=== PATIENT | male | born 1960 | race Caucasian/White ===

== ENCOUNTER 2016-08-13 17:31 | Inpatient (IN) | payer OTHER ==
[~2016-08-13] VITALS: Ht 167.6 cm; Wt 64.9 kg
[~2016-08-13 17:31] MED LIST: ALLA266C2 TP; AMLO5TAB2 PO; CHOL100044 PO; EMTR1TAB18 PO; GLIP5TAB PO; Hydrochlorothiazide PO; LEVO750T21 PO; LISI20TA61 PO; LISI40TA4 PO; METF500T4 PO; MULT-24 PO; PANT40TA2 PO; SULF1TAB47 PO; Venlafaxine Hcl PO
[2016-08-13] MEDS ORDERED: IV NS 0.9% 1,000 ML ONE ×2 (17:57→18:02)
[2016-08-13] MEDS ORDERED: ASPIRIN 325 MG TABLET ONE ×2 (17:57→18:02)
[2016-08-13] MEDS ORDERED: ONDANSETRON HCL/PF 4 MG/2 ML VIAL ONE ×3 (17:57→21:26)
[2016-08-13] MEDS ORDERED: IV SET PRIMARY PUMP SET 1 EA INFUS.SET MC ONE (17:58)
[2016-08-13] MEDS ORDERED: ASPIRIN 325 MG TABLET PO ONE (18:00)
[2016-08-13] MEDS ORDERED: IV NS 0.9% 1,000 ML BAG IV ONE (18:00)
[2016-08-13] MEDS ORDERED: ONDANSETRON HCL/PF 4 MG/2 ML VIAL IVP ONE (18:00)
[2016-08-13] MEDS ORDERED: IV SET PRIMARY 1 EA INFUS.SET MC ONE (18:02)
[2016-08-13 18:16] LABS: BASOPHILS % (AUTO) 0.4 % (0.0-2.0); DIFF TOTAL % 100 %; EOSINOPHILS # (AUTO) 0.1 /CMM (0.0-0.7); EOSINOPHILS % (AUTO) 2.2 % (0.0-6.0); HEMATOCRIT 42 % (39-51); HEMOGLOBIN 13.7 g/dL (13.5-17.5); LYMPHOCYTES # (AUTO) 0.6 /CMM (0.8-4.8); LYMPHOCYTES % (AUTO) 13.6 % (20.0-44.0); MEAN CORPUSCULAR HEMOGLOBIN 30 PG (26.0-33.0); MEAN CORPUSCULAR HGB CONC 33 g/dl (31.0-36.0); MEAN CORPUSCULAR VOLUME 92 fL (80-96); MONOCYTES # (AUTO) 0.4 /CMM (0.1-1.30); MONOCYTES % (AUTO) 8.9 % (2.0-12.0); NEUTROPHILS # (AUTO) 3.5 /CMM (1.8-8.9); NEUTROPHILS % (AUTO) 74.9 % (43.0-81.0); PLATELET COUNT (AUTO) 98 /CMM (150-450); RED BLOOD CELL COUNT(AUTO) 4.53 MIL/uL (4.5-6.0); WHITE BLOOD COUNT (AUTO) 4.6 K/uL (4.3-11.0)
[2016-08-13 18:30] LABS: ANION GAP 12 (5-14); CARBON DIOXIDE 28 mmol/L (21-32); CHLORIDE 105 mmol/L (98-107); CREATININE 1.1 mg/dL (0.6-1.3); GFR 70 mL/min (>60); GLUCOSE 265 mg/dL (74-106); POTASSIUM 3.7 mmol/L (3.5-5.1); SODIUM SERUM 141 mmol/L (136-145); UREA NITROGEN, BLOOD 19 mg/dL (7-18)
[2016-08-13 18:36] LABS: ALANINE AMINOTRANSFERASE 162 U/L (12-78); ALBUMIN 4.3 g/dL (3.4-5.0); ASPARTATE AMINOTRANSFERASE 91 U/L (15-37); BILIRUBIN,DIRECT 0.2 mg/dL (0.0-0.2); BILIRUBIN,TOTAL 0.6 mg/dL (0.2-1.0); INDIRECT BILIRUBIN 0.4 mg/dL (0.0-1.1); TOTAL PROTEIN, SERUM 7.7 g/dL (6.4-8.2)
[2016-08-13 18:38] LABS: TROPONIN I < 0.017 ng/mL (0.00-0.056)
[2016-08-13 18:46] LABS: INR 1.08 (0.87-1.13); PROTHROMBIN TIME 11.3 SECS (9.5-12.7)
[2016-08-13] MEDS ORDERED: FUROSEMIDE 40 MG/4 ML VIAL ONE (19:26)
[2016-08-13] MEDS ORDERED: FUROSEMIDE 40 MG/4 ML VIAL IV ONE (19:30)
[2016-08-13] MEDS ORDERED: DEXTROSE 50%-WATER 50 ML DISP.SYRIN IV PRN (21:00)
[2016-08-13] MEDS ORDERED: HYDROCODONE/APAP 5/325MG 1 EACH TABLET PO PRN (21:00)
[2016-08-13] MEDS ORDERED: MAGNESIUM HYDROXIDE 30 ML UDC PO PRN (21:00)
[2016-08-13] MEDS ORDERED: ACETAMINOPHEN 325 MG TABLET PO PRN (21:00)
[2016-08-13] MEDS ORDERED: MAG HYDROX/AL HYDROX/SIMETH 30 ML UDC PO PRN (21:00)
[2016-08-13] MEDS ORDERED: ZOLPIDEM TARTRATE 5 MG TABLET PO PRN (21:00)
[2016-08-13] MEDS ORDERED: ONDANSETRON HCL/PF 4 MG/2 ML VIAL IVP PRN (21:00)
[2016-08-13 21:10] VITALS: BP 143/90
[2016-08-13] MEDS: BLOOD SUGAR DIAGNOSTIC 1 EACH STRIP VI SCH (21:21)
[2016-08-13] MEDS: *INSULIN REGULAR(HUMULIN R)HUM 100 UNIT/ML VIAL SQ PRN (21:22)
[2016-08-13] MEDS ORDERED: PANTOPRAZOLE 40 MG VIAL ONE (21:26)
[2016-08-13] MEDS: PANTOPRAZOLE 40 MG VIAL IV SCH (21:32)
[2016-08-13 22:29] LABS: BAND % (MANUAL) 2 % (0.0-5.0); EOSINOPHILS % (MANUAL) 2 % (0-4); LYMPHOCYTES % (MANUAL) 14 % (16-48)
[2016-08-13 22:31] LABS: PLATELET ESTIMATE DECREASED
[2016-08-14] VITALS: BP 144/84
[2016-08-14 04:00] VITALS: BP 155/96
[2016-08-14] MEDS: BLOOD SUGAR DIAGNOSTIC 1 EACH STRIP VI SCH ×4 (05:55→21:03)
[2016-08-14] MEDS: INSULIN REGULAR, HUMAN 100 UNIT/ML 3 ML VIAL SQ PRN ×2 (05:57→18:56)
[2016-08-14 07:34] LABS: CALCIUM, SERUM 8.5 mg/dL (8.5-10.1); CREATININE 0.9 mg/dL (0.6-1.3); PHOSPHORUS 3.4 mg/dL (2.5-4.9); POTASSIUM 3.9 mmol/L (3.5-5.1)
[2016-08-14 08:00] VITALS: BP 139/70
[2016-08-14 08:03] LABS: BASOPHILS % (AUTO) 0.4 % (0.0-2.0); DIFF TOTAL % 100 %; EOSINOPHILS # (AUTO) 0.1 /CMM (0.0-0.7); EOSINOPHILS % (AUTO) 4.2 % (0.0-6.0); HEMATOCRIT 38 % (39-51); HEMOGLOBIN 12.8 g/dL (13.5-17.5); LYMPHOCYTES # (AUTO) 0.4 /CMM (0.8-4.8); LYMPHOCYTES % (AUTO) 15.1 % (20.0-44.0); MEAN CORPUSCULAR HEMOGLOBIN 31 PG (26.0-33.0); MEAN CORPUSCULAR HGB CONC 33 g/dl (31.0-36.0); MEAN CORPUSCULAR VOLUME 93 fL (80-96); MONOCYTES # (AUTO) 0.3 /CMM (0.1-1.30); MONOCYTES % (AUTO) 11.3 % (2.0-12.0); NEUTROPHILS # (AUTO) 1.7 /CMM (1.8-8.9); RED BLOOD CELL COUNT(AUTO) 4.15 MIL/uL (4.5-6.0); WHITE BLOOD COUNT (AUTO) 2.5 K/uL (4.3-11.0)
[2016-08-14] MEDS ORDERED: PANTOPRAZOLE 40 MG TABLET.DR PO SCH (08:45)
[2016-08-14] MEDS ORDERED: METFORMIN 500 MG TABLET PO SCH (09:00)
[2016-08-14] MEDS: MULTIVITAMINS,THERAPEUTIC 1 UDTAB TABLET PO SCH (09:21)
[2016-08-14] MEDS: LISINOPRIL (20MG) 20 MG TABLET PO SCH (09:21)
[2016-08-14] MEDS: CHOLECALCIFEROL 1,000 UNIT TABLET (VIT D3) PO SCH (09:22)
[2016-08-14] MEDS: AMLODIPINE BESYLATE 5 MG TABLET PO SCH (09:22)
[2016-08-14] MEDS: SULFAMETH/TRIMETH 800/160 MG 1 UDTAB TABLET PO SCH (09:41)
[2016-08-14] MEDS: HYDROCHLOROTHIAZIDE 25 MG TABLET PO SCH (09:41)
[2016-08-14] MEDS: LEVOFLOXACIN (750 MG) 750 MG TABLET PO SCH (09:42)
[2016-08-14] MEDS: VENLAFAXINE XR 150 MG CAP.SR.24H PO SCH (09:42)
[2016-08-14 10:18] LABS: PLATELET COUNT (AUTO) 62 /CMM (150-450); PLATELET ESTIMATE DECREASED
[2016-08-14] MEDS ORDERED: MAGNESIUM OXIDE 400 MG TABLET PO ONE (11:00)
[2016-08-14] MEDS: KETOCONAZOLE 2% CREAM 15 GM TUBE TP SCH (11:22)
[2016-08-14] MEDS: GLIPIZIDE XL 5 MG TAB.OSM.24 PO SCH (11:22)
[2016-08-14 16:00] VITALS: BP 131/79
[2016-08-14] MEDS: [UNRECOGNIZED DRUG - OTHER] PO SCH (18:51)
[2016-08-14] MEDS: TIVICAY 50MG PO SCH (18:51)
[2016-08-14 20:00] VITALS: BP 150/84
[2016-08-14] MEDS: PANTOPRAZOLE 40 MG VIAL IV SCH (21:04)
[2016-08-14] MEDS: *INSULIN REGULAR(HUMULIN R)HUM 100 UNIT/ML VIAL SQ PRN (21:49)
[2016-08-15] MEDS: BLOOD SUGAR DIAGNOSTIC 1 EACH STRIP VI SCH ×2 (06:17→12:07)
[2016-08-15] MEDS ORDERED: METFORMIN XR 500 MG TAB.SR.24H PO SCH (09:00)
[2016-08-15] MEDS: MULTIVITAMINS,THERAPEUTIC 1 UDTAB TABLET PO SCH (09:29)
[2016-08-15] MEDS: GLIPIZIDE XL 5 MG TAB.OSM.24 PO SCH (09:29)
[2016-08-15] MEDS: KETOCONAZOLE 2% CREAM 15 GM TUBE TP SCH (09:29)
[2016-08-15] MEDS: SULFAMETH/TRIMETH 800/160 MG 1 UDTAB TABLET PO SCH (09:30)
[2016-08-15] MEDS: VENLAFAXINE XR 150 MG CAP.SR.24H PO SCH (09:30)
[2016-08-15] MEDS: LEVOFLOXACIN (750 MG) 750 MG TABLET PO SCH (09:30)
[2016-08-15] MEDS: AMLODIPINE BESYLATE 5 MG TABLET PO SCH (09:31)
[2016-08-15] MEDS: HYDROCHLOROTHIAZIDE 25 MG TABLET PO SCH (09:32)
[2016-08-15] MEDS: CHOLECALCIFEROL 1,000 UNIT TABLET (VIT D3) PO SCH (09:32)
[2016-08-15] MEDS: TIVICAY 50MG PO SCH (09:33)
[2016-08-15] MEDS: [UNRECOGNIZED DRUG - OTHER] PO SCH (09:33)
[2016-08-15] MEDS: LISINOPRIL (20MG) 20 MG TABLET PO SCH (09:41)
[2016-08-15 10:00] VITALS: BP 125/81
[2016-08-15 10:23] LABS: CALCIUM, SERUM 8.3 mg/dL (8.5-10.1); POTASSIUM 3.9 mmol/L (3.5-5.1)
[2016-08-15] MEDS ORDERED: MAGNESIUM OXIDE 400 MG TABLET PO SCH (11:30)
[2016-08-15] MEDS ORDERED: SUCRALFATE 1 G TABLET PO SCH (12:00)
[2016-08-15] MEDS: INSULIN REGULAR, HUMAN 100 UNIT/ML 3 ML VIAL SQ PRN (12:27)
== END 2016-08-15 15:00 | disposition home or self-care (01) | DRG 391 ==
LOC: ER 17:32 → TELE 20:19 → MED 08-14 09:06
PROVIDERS: ADMIT Nurse Practitioner Acute Care; ATTEND Nurse Practitioner Acute Care
PROC: 0DB68ZX Excision of Stomach, Via Natural or Artificial Opening Endoscopic, Diagnostic (ICD-10-PCS; 2016-08-15)
PROC: 0DB58ZX Excision of Esophagus, Via Natural or Artificial Opening Endoscopic, Diagnostic (ICD-10-PCS; principal; 2016-08-15 07:30)
DX: K20.9 Esophagitis, unspecified (principal); B20 Human immunodeficiency virus [HIV] disease; D69.6 Thrombocytopenia, unspecified; E11.9 Type 2 diabetes mellitus without complications; F32.9 Major depressive disorder, single episode, unspecified; I10 Essential (primary) hypertension; K21.9 Gastro-esophageal reflux disease without esophagitis; K27.9 Peptic ulcer, site unspecified, unspecified as acute or chronic, without hemorrhage or perforation; J45.909 Unspecified asthma, uncomplicated; D75.89 Other specified diseases of blood and blood-forming organs; B36.9 Superficial mycosis, unspecified; K22.2 Esophageal obstruction; D64.9 Anemia, unspecified; E83.42 Hypomagnesemia; R13.10 Dysphagia, unspecified
CPT/HCPCS: 36415; 71010-TC; 80048-TC; 80061-TC; 80076-TC; 82962-TC; 83690-TC; 83735-TC; 84100-TC; 84484-TC; 85025-TC; 85730-TC; 87081-TC; 88305-TC; 88313-TC; 88342; A4606; C9113; J1815; J1940; J2001; J2405; J2704; J7030; Z7610

== ENCOUNTER 2016-11-19 17:49 | Inpatient (IN) | payer OTHER ==
[~2016-11-19] VITALS: Ht 162.6 cm; Wt 70.3 kg
[2016-11-19] MEDS ORDERED: IV NS 0.9% 1,000 ML ONE (18:15)
[2016-11-19] MEDS ORDERED: ONDANSETRON HCL/PF 4 MG/2 ML VIAL ONE ×2 (18:15→19:21)
[2016-11-19] MEDS ORDERED: IV SET PRIMARY PUMP SET 1 EA INFUS.SET MC ONE ×2 (18:15→23:28)
[2016-11-19] MEDS ORDERED: GLUCAGON,HUMAN RECOMBINANT 1 MG/VIAL VIAL ONE (18:15)
[2016-11-19] MEDS ORDERED: PANTOPRAZOLE 40 MG VIAL ONE (18:15)
[2016-11-19 18:17] LABS: BASOPHILS # (AUTO) 0.1 /CMM (0.0-0.2); BASOPHILS % (AUTO) 0.9 % (0.0-2.0); EOSINOPHILS % (AUTO) 0.4 % (0.0-6.0); HEMATOCRIT 44 % (39-51); HEMOGLOBIN 14.8 g/dL (13.5-17.5); LYMPHOCYTES # (AUTO) 0.8 /CMM (0.8-4.8); MEAN CORPUSCULAR HEMOGLOBIN 30 PG (26.0-33.0); MEAN CORPUSCULAR HGB CONC 34 g/dl (31.0-36.0); MEAN CORPUSCULAR VOLUME 91 fL (80-96); MONOCYTES # (AUTO) 0.4 /CMM (0.1-1.30); MONOCYTES % (AUTO) 6.2 % (2.0-12.0); NEUTROPHILS # (AUTO) 4.9 /CMM (1.8-8.9); NEUTROPHILS % (AUTO) 79.5 % (43.0-81.0); PLATELET COUNT (AUTO) 120 /CMM (150-450); RDW COEFFICIENT OF VARIATION 12.9 (11.5-15.0); RED BLOOD CELL COUNT(AUTO) 4.87 MIL/uL (4.5-6.0); WHITE BLOOD COUNT (AUTO) 6.2 K/uL (4.3-11.0)
[2016-11-19] MEDS ORDERED: WATER FOR INJECTION,STERILE 10 ML ONE (18:17)
[2016-11-19 18:26] LABS: CALCIUM, SERUM 9.5 mg/dL (8.5-10.1); CREATININE 1.2 mg/dL (0.6-1.3); POTASSIUM 4.1 mmol/L (3.5-5.1)
[2016-11-19] MEDS ORDERED: PANTOPRAZOLE 40 MG VIAL IV ONE (18:30)
[2016-11-19] MEDS ORDERED: IV NS 0.9% 1,000 ML BAG IV ONE (18:30)
[2016-11-19] MEDS ORDERED: ONDANSETRON HCL/PF 4 MG/2 ML VIAL IVP ONE (18:30)
[2016-11-19] MEDS ORDERED: GLUCAGON,HUMAN RECOMBINANT 1 MG/VIAL VIAL IV ONE (18:30)
--- NOTE | 2016-11-19 18:30 | NUR ---
PT CAME IN COMPLAINING OF CHOKING FEELING LIKE A PIECE OF BEEF STUCK IN THROAT S/P EATING LUNCH. PT REPORTS HE IS ON SOME LIVFER MEDS THAT MAKES HIM SICK WELL. REPORTS OF NAUSEA, ACTIVELY VOMITING WITH MINIMAL EMESIS. PT AAOX3. SAFETY AND COMFORT MEASURES PROVIDED. WILL MONITOR.
[2016-11-19 18:32] LABS: BILIRUBIN,DIRECT 0.1 mg/dL (0.0-0.2); BILIRUBIN,TOTAL 0.6 mg/dL (0.2-1.0); TOTAL PROTEIN, SERUM 7.8 g/dL (6.4-8.2)
[2016-11-19 18:43] LABS: PROTHROMBIN TIME 10.4 SECS (9.5-12.7)
--- NOTE | 2016-11-19 18:50 | NUR ---
IV ACCESS STARTED. BLOOD DRAWN FOR LABS. PT MEDICATED ORDERED.
[2016-11-19] MEDS ORDERED: MORPHINE SULFATE INJ 2 MG/ML DISP.SYRIN IV ONE (19:00)
--- NOTE | 2016-11-19 19:15 | NUR ---
ASSUMED CARE OF PT.
--- NOTE | 2016-11-19 19:15 | NUR ---
PT IS C/O PAIN AND NAUSEA. PT WAS INSTRUCTED NOT TO DRINK. PT HAS A JUICE BOTTLE AT THE BEDSIDE. BOTTLE REMOVED AND PT INSTRUCTED NOT TO DRINK. PT IS DRY HEAVING.
[2016-11-19] MEDS ORDERED: MORPHINE SULFATE INJ 2 MG/ML DISP.SYRIN ONE (19:19)
--- NOTE | 2016-11-19 19:39 | NUR ---
RECEIVED VERBAL ORDERS FOR SECOND ZOFRAN, ORDER CARRIED OUT. ZOFRAN 4MG GIVEN IVP.
--- NOTE | 2016-11-19 20:05 | NUR ---
PT APPEARS TO BE RESTING COMFORTABLY WITH NO S/S OF N/V. PT IS ON THE MONITOR AND CONTINUOUS PULSE OX. VSS.
--- NOTE | 2016-11-19 20:18 | NUR ---
PT IS ASKING FOR FOOD. PT WAS TOLD THAT HE CAN NOT HAVE ANYTHING TO EAT OR DRINK AT THIS TIME. PT IS NPO.
--- NOTE | 2016-11-19 20:35 | NUR ---
DR. RICKETTS IS AT THE BEDSIDE.
--- NOTE | 2016-11-19 20:48 | NUR ---
CALLED [facility] YOUTH CAREER SPECIALIST DOCTOR WAS PAGED.
--- NOTE | 2016-11-19 21:29 | NUR ---
PT APPEARS TO BE RESTING COMFORTABLY. NO S/S OF PAIN OR DISTRESS.
[2016-11-19] MEDS ORDERED: IV D5/0.45 NACL 1,000 ML IV PRN (22:27)
[2016-11-19] MEDS ORDERED: INSULIN REGULAR, HUMAN 100 UNIT/ML 3 ML VIAL SQ PRN (22:30)
[2016-11-19] MEDS ORDERED: MORPHINE SULFATE INJ 2 MG/ML DISP.SYRIN IV PRN (22:30)
[2016-11-19] MEDS ORDERED: DEXTROSE 50%-WATER 50 ML DISP.SYRIN IV PRN (22:30)
[2016-11-19] MEDS ORDERED: ONDANSETRON HCL/PF 4 MG/2 ML VIAL IVP PRN (22:30)
[2016-11-19] MEDS ORDERED: HYDROCODONE/APAP 5/325MG 1 EACH TABLET PO PRN (22:30)
[2016-11-19] MEDS ORDERED: MAGNESIUM HYDROXIDE 30 ML UDC PO PRN (22:30)
[2016-11-19] MEDS ORDERED: Z GUARD REMEDY 2 OZ OINT TP PRN ×2 (22:30)
[2016-11-19] MEDS ORDERED: *INSULIN REGULAR(HUMULIN R)HUM 100 UNIT/ML VIAL SQ PRN (22:30)
[2016-11-19] MEDS ORDERED: MAG HYDROX/AL HYDROX/SIMETH 30 ML UDC PO PRN (22:30)
--- NOTE | 2016-11-19 22:55 | NUR ---
CALLING 3RD TIME TO GIVE REPORT TO MS NURSE.
--- NOTE | 2016-11-19 23:07 | NUR ---
REPORT GIVEN TO BINTA VELAZQUEZ
[2016-11-19 23:15] VITALS: BP 137/85
[2016-11-19] MEDS ORDERED: IV D5/0.45 NACL 1,000 ML IV ONE (23:27)
--- NOTE | 2016-11-19 23:30 | NUR ---
MS RN ADMITTING NOTE RECEIVED PT COMING FROM ER VIA GURNEY, AFTER RECEIVING PAIN MEDICATION PT IS COMFORTABLE AND DENIES PAIN, IV FLUID D51/2NS WILL BE INITIATED PER MD ORDER, PT TO UNDERGO EGD IN AM PER DOCTOR LILIAM, HE WILL BE KEPT STRICT NPO, PT IS CLEAN/DRY AND COMFORTABLE, SAFETY MEASURES WILL BE MAINTAINED AT ALL TIMES, NEEDS WILL BE ANTICIPATED AND ATTENDED PROMPTLY.
[2016-11-20 07:18] LABS: BASOPHILS % (AUTO) 0.2 % (0.0-2.0); EOSINOPHILS # (AUTO) 0.1 /CMM (0.0-0.7); EOSINOPHILS % (AUTO) 1.5 % (0.0-6.0); HEMATOCRIT 36 % (39-51); HEMOGLOBIN 12.4 g/dL (13.5-17.5); LYMPHOCYTES # (AUTO) 0.6 /CMM (0.8-4.8); LYMPHOCYTES % (AUTO) 16.4 % (20.0-44.0); MEAN CORPUSCULAR HEMOGLOBIN 32 PG (26.0-33.0); MEAN CORPUSCULAR HGB CONC 35 g/dl (31.0-36.0); MEAN CORPUSCULAR VOLUME 93 fL (80-96); MONOCYTES # (AUTO) 0.2 /CMM (0.1-1.30); MONOCYTES % (AUTO) 6.2 % (2.0-12.0); NEUTROPHILS # (AUTO) 2.9 /CMM (1.8-8.9); NEUTROPHILS % (AUTO) 75.7 % (43.0-81.0); PLATELET COUNT (AUTO) 80 /CMM (150-450); RDW COEFFICIENT OF VARIATION 14.2 (11.5-15.0); RED BLOOD CELL COUNT(AUTO) 3.86 MIL/uL (4.5-6.0); WHITE BLOOD COUNT (AUTO) 3.8 K/uL (4.3-11.0)
--- NOTE | 2016-11-20 07:19 | NUR ---
MS RN CLOSING NOTE PT REMAINED STABLE, NO SIGNIFICANT CHANGE IN CONDITION NOTED DURING NIGHT, CURRENTLY AWAITING TO BE PICKED UP FROM SURGERY TO UNDERGO EGD BY MD RICKETTS, WILL ENDORSE TO INCOMING NURSE FOR RYAN.
[2016-11-20] MEDS: BLOOD SUGAR DIAGNOSTIC 1 EACH STRIP VI SCH ×2 (07:28→12:24)
[2016-11-20 07:35] LABS: CALCIUM, SERUM 8.1 mg/dL (8.5-10.1); CREATININE 0.8 mg/dL (0.6-1.3); MAGNESIUM 1.7 mg/dL (1.8-2.4); PHOSPHORUS 3.8 mg/dL (2.5-4.9)
[2016-11-20 08:00] VITALS: BP 134/84
--- NOTE | 2016-11-20 08:00 | NUR ---
AM RN NOTE Received patient sleeping comfortably in his bed, no SOB noted resp even and non-labored. IV site intact and patent. On NPO status for EGD. Bed in low locked position. Will continue to monitor.
[2016-11-20 08:09] LABS: BAND % (MANUAL) 2 % (0.0-5.0); EOSINOPHILS % (MANUAL) 3 % (0-4); LYMPHOCYTES % (MANUAL) 16 % (16-48); MONOCYTES % (MANUAL) 6 % (0-11.0); NEUTROPHILS % (MANUAL) 73 (42-76)
--- NOTE | 2016-11-20 08:32 | NUR ---
AM RN NOTE Patient awake, left for EGD procedure as accompanied by OR staff.
[2016-11-20] MEDS ORDERED: PANTOPRAZOLE 40 MG VIAL IV SCH (09:00)
--- NOTE | 2016-11-20 09:57 | NUR ---
AM RN NOTE Patient intermediately awake, came back from OR as accompanied by OR staff with new orders noted and carried out. V/S BP108/72 T97.2 P67 R20 PA0/10-O2 sat 94% at RA.
[2016-11-20] MEDS ORDERED: SECONDARY IV SET 1 EA INFUS.SET MC ONE (12:20)
[2016-11-20] MEDS: Magnesium 1GM/D5W 100ML PREMIX 100 ML IV SCH ×2 (12:33→13:49)
[2016-11-20] MEDS ORDERED: VENL150C2 PO (14:33)
[2016-11-20] MEDS ORDERED: GLIP5TAB13 PO (14:33)
[2016-11-20] MEDS ORDERED: PANT40TA2 PO (14:33)
[2016-11-20] MEDS ORDERED: AMLO5TAB2 PO (14:33)
[2016-11-20] MEDS ORDERED: HYDR25TA4 PO (14:33)
[2016-11-20] MEDS ORDERED: SULF1TAB48 PO (14:33)
[2016-11-20] MEDS ORDERED: DOLU10TA PO (14:48)
[2016-11-20 16:00] VITALS: BP 147/89
--- NOTE | 2016-11-20 17:15 | NUR ---
AM RN NOTE Patient awake, A/O X4 verbally responsive. Seen and assessed by Ethan BIOLOGY TEACHER with discharge home order. Discharge instructions on medications and teaching given and pt verbalize understanding. Belongings endorsed and signed.
--- NOTE | 2016-11-20 17:45 | NUR ---
AM RN NOTE Patient awake, A/O X4. Denies any pain or discomfort at this time. HL and ID band removed. Pt requested for taxi voucher, obtained from deck supervisor. Taxi called. Pt discharged/ left unit at this time as accompanied by Mother and 1 PIPE WRAPPING MACHINE OPERATOR to downstairs with all his belongings.
== END 2016-11-20 17:45 | disposition home or self-care (01) | DRG 391 ==
LOC: ER 17:56 → MEDSG2 21:36
PROVIDERS: ADMIT Internal Medicine; ATTEND Internal Medicine
PROC: 0DB68ZX Excision of Stomach, Via Natural or Artificial Opening Endoscopic, Diagnostic (ICD-10-PCS; principal; 2016-11-20 09:07)
DX: K22.2 Esophageal obstruction (principal); B20 Human immunodeficiency virus [HIV] disease; B19.20 Unspecified viral hepatitis C without hepatic coma; F32.9 Major depressive disorder, single episode, unspecified; E11.9 Type 2 diabetes mellitus without complications; I10 Essential (primary) hypertension; K21.9 Gastro-esophageal reflux disease without esophagitis; F41.9 Anxiety disorder, unspecified; R13.10 Dysphagia, unspecified; Z88.0 Allergy status to penicillin
CPT/HCPCS: 36415; 71010-TC; 80048-TC; 80076-TC; 82962-TC; 83690-TC; 83735-TC; 84100-TC; 85025-TC; 85730-TC; 87081-TC; 88305-TC; 88313-TC; 88342; A4606; C9113; J1610; J1815; J2270; J2405; J2704; J3475; J3490; J7030; Z7610

== ENCOUNTER 2017-04-15 15:14 | Inpatient (IN) | payer OTHER ==
[~2017-04-15] VITALS: Ht 167.6 cm; Wt 66.2 kg
[~2017-04-15 15:14] MED LIST changes: -CHOL100044 PO; +DOLU10TA PO; -GLIP5TAB PO; +GLIP5TAB13 PO; +HYDR25TA4 PO; -Hydrochlorothiazide PO; -LEVO750T21 PO; -LISI20TA61 PO; -METF500T4 PO; -MULT-24 PO; -PANT40TA2 PO; -SULF1TAB47 PO; +SULF1TAB48 PO; +VENL150C2 PO; -Venlafaxine Hcl PO
[2017-04-15] MEDS ORDERED: GLUCAGON,HUMAN RECOMBINANT 1 MG/VIAL VIAL IV ONE (15:30)
[2017-04-15] MEDS ORDERED: ONDANSETRON HCL/PF 4 MG/2 ML VIAL ONE ×2 (15:41→17:50)
[2017-04-15] MEDS ORDERED: GLUCAGON,HUMAN RECOMBINANT 1 MG/VIAL VIAL ONE (15:41)
[2017-04-15] MEDS ORDERED: WATER FOR INJECTION,STERILE 10 ML ONE (15:41)
[2017-04-15 15:54] LABS: BASOPHILS # (AUTO) 0.1 /CMM (0.0-0.2); EOSINOPHILS # (AUTO) 0.1 /CMM (0.0-0.7); EOSINOPHILS % (AUTO) 1.5 % (0.0-6.0); HEMATOCRIT 43 % (39-51); HEMOGLOBIN 14.7 g/dL (13.5-17.5); LYMPHOCYTES # (AUTO) 0.9 /CMM (0.8-4.8); LYMPHOCYTES % (AUTO) 13.9 % (20.0-44.0); MEAN CORPUSCULAR HEMOGLOBIN 30 PG (26.0-33.0); MEAN CORPUSCULAR HGB CONC 34 g/dl (31.0-36.0); MEAN CORPUSCULAR VOLUME 89 fL (80-96); MONOCYTES # (AUTO) 0.6 /CMM (0.1-1.30); MONOCYTES % (AUTO) 9.2 % (2.0-12.0); NEUTROPHILS # (AUTO) 4.9 /CMM (1.8-8.9); NEUTROPHILS % (AUTO) 73.4 % (43.0-81.0); PLATELET COUNT (AUTO) 125 /CMM (150-450); RED BLOOD CELL COUNT(AUTO) 4.86 MIL/uL (4.5-6.0); WHITE BLOOD COUNT (AUTO) 6.6 K/uL (4.3-11.0)
[2017-04-15] MEDS ORDERED: ONDANSETRON HCL/PF 4 MG/2 ML VIAL IV ONE (16:00)
[2017-04-15 16:03] LABS: CALCIUM, SERUM 9.4 mg/dL (8.5-10.1); CREATININE 1.1 mg/dL (0.6-1.3); POTASSIUM 3.6 mmol/L (3.5-5.1)
[2017-04-15 16:07] LABS: INR 0.99 (0.87-1.13); PROTHROMBIN TIME 10.3 SECS (9.5-12.7)
[2017-04-15] MEDS ORDERED: IV D5/0.45 NACL 1,000 ML IV PRN (16:35)
[2017-04-15] MEDS ORDERED: HYDROMORPHONE INJ 2 MG/ML DISP.SYRIN ONE (16:59)
[2017-04-15] MEDS ORDERED: Z GUARD REMEDY 2 OZ OINT TP PRN (17:00)
[2017-04-15] MEDS ORDERED: INSULIN REGULAR, HUMAN 100 UNIT/ML 3 ML VIAL SQ PRN (17:00)
[2017-04-15] MEDS ORDERED: hydrALAZINE HCL IV 20 MG VIAL IV PRN (17:00)
[2017-04-15] MEDS ORDERED: *INSULIN REGULAR(HUMULIN R)HUM 100 UNIT/ML VIAL SQ PRN (17:00)
[2017-04-15] MEDS ORDERED: DEXTROSE 50%-WATER 50 ML DISP.SYRIN IV PRN (17:00)
[2017-04-15] MEDS ORDERED: HYDROMORPHONE INJ 2 MG/ML DISP.SYRIN IV ONE (17:00)
[2017-04-15 18:10] VITALS: BP 154/86
[2017-04-15] MEDS: BLOOD SUGAR DIAGNOSTIC 1 EACH STRIP VI SCH ×2 (19:21→21:54)
[2017-04-15 20:00] VITALS: BP 142/86
[2017-04-16] MEDS: HYDROMORPHONE INJ 2 MG/ML DISP.SYRIN IV PRN ×2 (03:01→07:33)
[2017-04-16] MEDS ORDERED: ONDANSETRON HCL/PF 4 MG/2 ML VIAL ONE (05:25)
[2017-04-16] MEDS ORDERED: ONDANSETRON HCL/PF 4 MG/2 ML VIAL IV PRN (05:30)
[2017-04-16] MEDS: BLOOD SUGAR DIAGNOSTIC 1 EACH STRIP VI SCH ×3 (06:58→17:13)
[2017-04-16 07:45] LABS: BASOPHILS % (AUTO) 0.3 % (0.0-2.0); EOSINOPHILS # (AUTO) 0.1 /CMM (0.0-0.7); EOSINOPHILS % (AUTO) 2.2 % (0.0-6.0); HEMATOCRIT 43 % (39-51); HEMOGLOBIN 14.9 g/dL (13.5-17.5); LYMPHOCYTES # (AUTO) 0.7 /CMM (0.8-4.8); LYMPHOCYTES % (AUTO) 10.3 % (20.0-44.0); MEAN CORPUSCULAR HEMOGLOBIN 31 PG (26.0-33.0); MEAN CORPUSCULAR HGB CONC 35 g/dl (31.0-36.0); MEAN CORPUSCULAR VOLUME 90 fL (80-96); MONOCYTES # (AUTO) 0.6 /CMM (0.1-1.30); MONOCYTES % (AUTO) 9.6 % (2.0-12.0); NEUTROPHILS % (AUTO) 77.6 % (43.0-81.0); PLATELET COUNT (AUTO) 131 /CMM (150-450); RDW COEFFICIENT OF VARIATION 12.8 (11.5-15.0); WHITE BLOOD COUNT (AUTO) 6.4 K/uL (4.3-11.0)
[2017-04-16 07:53] LABS: CALCIUM, SERUM 8.4 mg/dL (8.5-10.1); CREATININE 0.9 mg/dL (0.6-1.3); PHOSPHORUS 3.3 mg/dL (2.5-4.9); POTASSIUM 3.6 mmol/L (3.5-5.1)
[2017-04-16 08:00] VITALS: BP 145/95
[2017-04-16] MEDS ORDERED: PANTOPRAZOLE 40 MG VIAL IV SCH (09:00)
[2017-04-16 16:00] VITALS: BP 144/88
== END 2017-04-16 18:54 | disposition home or self-care (01) | DRG 395 ==
LOC: ER 15:16 → TELE 17:40 → MED 21:24
PROVIDERS: ADMIT Internal Medicine; ATTEND Internal Medicine
PROC: 0DC28ZZ Extirpation of Matter from Middle Esophagus, Via Natural or Artificial Opening Endoscopic (ICD-10-PCS; principal; 2017-04-16 10:10)
DX: T18.128A Food in esophagus causing other injury, initial encounter (principal); E11.9 Type 2 diabetes mellitus without complications; K21.9 Gastro-esophageal reflux disease without esophagitis; Z88.0 Allergy status to penicillin; X58.XXXA Exposure to other specified factors, initial encounter; Y93.89 Activity, other specified; Y92.009 Unspecified place in unspecified non-institutional (private) residence as the place of occurrence of the external cause; K44.9 Diaphragmatic hernia without obstruction or gangrene; Z79.84 Long term (current) use of oral hypoglycemic drugs
CPT/HCPCS: 36415; 71010-TC; 80048-TC; 82962-TC; 83735-TC; 84100-TC; 85025-TC; 85730-TC; 87081-TC; A4606; C9113; J1170; J1610; J1815; J2405; J2704; J3490; Z7610

== ENCOUNTER 2018-06-30 00:48 | Emergency (ER) | payer OTHER, MEDICAID ==
[~2018-06-30] VITALS: Ht 167.6 cm; Wt 65.8 kg
[~2018-06-30 00:48] MED LIST changes: -AMLO5TAB2 PO; +AMLO5TAB9 PO
[2018-06-30 01:14] VITALS: BP 156/99
[2018-06-30] MEDS ORDERED: KETOROLAC TROMETHAMINE INJ 60 MG/2 ML VIAL IM ONE (02:30)
[2018-06-30] MEDS ORDERED: KETOROLAC TROMETHAMINE INJ 30 MG/ML VIAL ONE (02:34)
== END 2018-06-30 02:41 | disposition home or self-care (01) ==
LOC: ER 00:53
DX: M54.31 Sciatica, right side (principal); I10 Essential (primary) hypertension; E11.9 Type 2 diabetes mellitus without complications; F41.9 Anxiety disorder, unspecified; Z96.692 Finger-joint replacement of left hand; Z60.2 Problems related to living alone
CPT/HCPCS: J1885

== ENCOUNTER 2018-07-07 16:00 | Emergency (ER) | payer MEDICAID, OTHER ==
[~2018-07-07] VITALS: Ht 167.6 cm; Wt 63.5 kg
--- NOTE | 2018-07-07 16:13 | NUR ---
BIB SELF, SENT FROM DR. SPARROW'S OFFICE FOR ELEV BLOOD SUGAR. BS 475, ALSO C/O LOWER BACK PAIN RADIATING TO RLE. TO ER BED 10, HOOKED TO MONITOR, AWAITING MD PAUL
--- NOTE | 2018-07-07 16:21 | NUR ---
DR URIOSTEGUI AT BEDSIDE
[2018-07-07] MEDS ORDERED: ONDANSETRON 4 MG TAB.RAPDIS SL ONE (16:30)
[2018-07-07] MEDS ORDERED: HYDROCODONE/APAP 10/325MG 1 EA TABLET PO ONE (16:30)
[2018-07-07] MEDS ORDERED: HYDROCODONE/APAP 10/325MG 1 EA TABLET ONE (16:33)
[2018-07-07] MEDS ORDERED: ONDANSETRON 4 MG TAB.RAPDIS ONE (16:33)
--- NOTE | 2018-07-07 17:27 | NUR ---
Patient discharged to home in stable condition. Written and verbal after care instructions given. Patient verbalizes understanding of instruction.
[2018-07-07 17:28] VITALS: BP 120/88
== END 2018-07-07 17:29 | disposition home or self-care (01) ==
LOC: ER 16:05
DX: E11.65 Type 2 diabetes mellitus with hyperglycemia (principal); M54.40 Lumbago with sciatica, unspecified side; I10 Essential (primary) hypertension; F41.9 Anxiety disorder, unspecified; F41.0 Panic disorder [episodic paroxysmal anxiety]; Z86.19 Personal history of other infectious and parasitic diseases; Z98.890 Other specified postprocedural states; Z60.2 Problems related to living alone; Z79.899 Other long term (current) drug therapy
CPT/HCPCS: 82962-TC; Q0162

== ENCOUNTER 2018-11-25 02:07 | Emergency (ER) | payer OTHER ==
[~2018-11-25] VITALS: Ht 170.2 cm; Wt 63.5 kg
--- NOTE | 2018-11-25 02:22 | NUR ---
BIBS FOR C/O ABD PAIN AND DIARRHEA X 2 DAYS. ALSO HAD AN EPISODE OF FEVER 2 DAYS AGO BUT AFEBRILE CURRENTLY. DENIED DYSURIA OR HEMATURIA. VSS. WILL CONT TO MONITOR ,
--- NOTE | 2018-11-25 02:27 | NUR ---
DR KUMAR AT THE BED SIDE
[2018-11-25] MEDS ORDERED: LOPERAMIDE HCL (2 MG CAP) 2 MG CAPSULE PO ONE ×2 (02:40→03:00)
[2018-11-25] MEDS ORDERED: KETOROLAC TROMETHAMINE 15 MG/ML VIAL ONE (02:40)
[2018-11-25] MEDS ORDERED: KETOROLAC TROMETHAMINE INJ 30 MG/ML VIAL IV ONE (03:00)
[2018-11-25] MEDS ORDERED: IV NS 0.9% 1,000 ML BAG IV ONE (03:00)
[2018-11-25 03:01] LABS: MONOCYTES # (AUTO) 0.4 /CMM (0.1-1.30)
--- NOTE | 2018-11-25 03:03 | NUR ---
RFA 22G PIV STARTED, BLOOD DRAWN AND SENT TO THE LAB. MEDICATED ORDERED.
[2018-11-25 03:06] LABS: BASOPHILS % (AUTO) 0.3 % (0.0-2.0); EOSINOPHILS % (AUTO) 0.4 % (0.0-6.0); HEMATOCRIT 52 % (39-51); HEMOGLOBIN 17.9 g/dL (13.5-17.5); LYMPHOCYTES # (AUTO) 0.6 /CMM (0.8-4.8); LYMPHOCYTES % (AUTO) 11.9 % (20.0-44.0); MEAN CORPUSCULAR HGB CONC 34 g/dl (31.0-36.0); MEAN CORPUSCULAR VOLUME 88 fL (80-96); MONOCYTES % (AUTO) 6.6 % (2.0-12.0); NEUTROPHILS # (AUTO) 4.4 /CMM (1.8-8.9); NEUTROPHILS % (AUTO) 80.8 % (43.0-81.0); PLATELET COUNT (AUTO) 70 /CMM (150-450); RED BLOOD CELL COUNT(AUTO) 5.92 MIL/uL (4.5-6.0); WHITE BLOOD COUNT (AUTO) 5.4 K/uL (4.3-11.0)
[2018-11-25 03:07] LABS: CALCIUM, SERUM 8.8 mg/dL (8.5-10.1); CREATININE 1.3 mg/dL (0.6-1.3); POTASSIUM 4.1 mmol/L (3.5-5.1)
[2018-11-25 03:14] LABS: ALBUMIN 3.9 g/dL (3.4-5.0); BILIRUBIN,DIRECT 0.1 mg/dL (0.0-0.2); BILIRUBIN,TOTAL 0.4 mg/dL (0.2-1.0); TOTAL PROTEIN, SERUM 8.8 g/dL (6.4-8.2)
[2018-11-25 03:27] LABS: NEUTROPHILS % (MANUAL) 83 (42-76)
[2018-11-25 03:28] LABS: LYMPHOCYTES % (MANUAL) 10 % (16-48); MONOCYTES % (MANUAL) 7 % (0-11.0)
--- NOTE | 2018-11-25 03:40 | NUR ---
Patient is resting comfortably in bed with eyes closed. Easily aroused. VSS
[2018-11-25 03:59] VITALS: BP 118/73
--- NOTE | 2018-11-25 03:59 | NUR ---
Patient discharged to home in stable condition. Written and verbal after care instructions given. Patient verbalizes understanding of instruction.
== END 2018-11-25 04:00 | disposition home or self-care (01) ==
LOC: ER 02:09
DX: R19.7 Diarrhea, unspecified (principal); E11.65 Type 2 diabetes mellitus with hyperglycemia; I10 Essential (primary) hypertension; F41.9 Anxiety disorder, unspecified; Z86.19 Personal history of other infectious and parasitic diseases; Z98.890 Other specified postprocedural states; Z79.4 Long term (current) use of insulin; Z60.2 Problems related to living alone
CPT/HCPCS: 36415; 80048; 80076; 85025; 96361; 96374; 99283; J1885; J7030

== ENCOUNTER 2018-12-14 03:51 | Emergency (ER) | payer OTHER ==
--- NOTE | 2018-12-14 04:35 | NUR ---
CALLED IN WR, NO ANSWER.
--- NOTE | 2018-12-14 04:53 | NUR ---
CALLED PATIENT IN WR, NO ANSWER.
--- NOTE | 2018-12-14 05:19 | NUR ---
PATIENT NOT IN WR.
== END 2018-12-14 05:26 | disposition left against medical advice (07) ==
LOC: ER 03:59
DX: Z53.21 Procedure and treatment not carried out due to patient leaving prior to being seen by health care provider (principal)

== ENCOUNTER 2019-03-27 17:10 | Inpatient (IN) | payer OTHER ==
[~2019-03-27] VITALS: Ht 167.6 cm; Wt 60.8 kg
--- NOTE | 2019-03-27 17:20 | NUR ---
SHORT OF BREATH/CHEST CONGESTION X 3 DAYS. PATIENT A/OX4, BREATHING EVEN AND UNLABORED, ATTACHED TO THE CEMETERY WORKERS SUPERVISOR, NO DISTRESS NOTED. MD AT BEDSIDE FOR EVAL.
[2019-03-27 17:46] LABS: EOSINOPHILS % (AUTO) 0.5 % (0.0-6.0); HEMATOCRIT 42 % (39-51); LYMPHOCYTES # (AUTO) 0.4 /CMM (0.8-4.8); LYMPHOCYTES % (AUTO) 18.1 % (20.0-44.0); MEAN CORPUSCULAR HGB CONC 33 g/dl (31.0-36.0); MEAN CORPUSCULAR VOLUME 88 fL (80-96); MONOCYTES # (AUTO) 0.3 /CMM (0.1-1.30); NEUTROPHILS # (AUTO) 1.4 /CMM (1.8-8.9); NEUTROPHILS % (AUTO) 65.4 % (43.0-81.0); PLATELET COUNT (AUTO) 60 /CMM (150-450); RED BLOOD CELL COUNT(AUTO) 4.79 MIL/uL (4.5-6.0); WHITE BLOOD COUNT (AUTO) 2.1 K/uL (4.3-11.0)
[2019-03-27 18:10] LABS: ALBUMIN 3.1 g/dL (3.4-5.0); BILIRUBIN,DIRECT 0.1 mg/dL (0.0-0.2); BILIRUBIN,TOTAL 0.2 mg/dL (0.2-1.0); CALCIUM, SERUM 8.8 mg/dL (8.5-10.1); CREATININE 1.3 mg/dL (0.6-1.3); POTASSIUM 3.9 mmol/L (3.5-5.1); TOTAL PROTEIN, SERUM 7.1 g/dL (6.4-8.2)
--- NOTE | 2019-03-27 18:13 | NUR ---
CRITICAL LAB GLUCOSE OF 627 PER ABSTRACT CLERK MD CHRIS MADE AWARE
[2019-03-27] MEDS ORDERED: IV NS 0.9% 1,000 ML IV ONE (18:30)
--- NOTE | 2019-03-27 18:37 | NUR ---
CALLED FOR TELE BED
--- NOTE | 2019-03-27 18:48 | NUR ---
PATIENT A/OX4, NO DISTRESS NOTED, NEEDS ATTENDED.
[2019-03-27] MEDS ORDERED: INSULIN REGULAR, HUMAN 100 UNIT/ML 10 ML VIAL SQ ONE ×2 (19:30→20:30)
[2019-03-27] MEDS ORDERED: INSULIN REGULAR, HUMAN 100 UNIT/ML 10 ML VIAL ONE (19:36)
--- NOTE | 2019-03-27 19:36 | NUR ---
CALLED FOR TELE BED
[2019-03-27] MEDS ORDERED: IV NS 0.9% 1,000 ML IV PRN (19:38)
--- NOTE | 2019-03-27 19:44 | NUR ---
BS 410, DR. AGARWAL MADE AWARE. PER VERBAL MD ORDER, WILL ADMINISTER 6 UNITS REGULAR INSULIN SQ X1 NOW
--- NOTE | 2019-03-27 19:44 | NUR ---
ADDENDUM: PER MD, CANCEL 10 UNITS OF INSULIN, CHANGED TO 6 UNITS.
[2019-03-27 19:49] LABS: BAND % (MANUAL) 1 % (0.0-5.0); LYMPHOCYTES % (MANUAL) 23 % (16-48); MONOCYTES % (MANUAL) 13 % (0-11.0); NEUTROPHILS % (MANUAL) 63 (42-76)
[2019-03-27 20:00] VITALS: BP 140/91
[2019-03-27] MEDS ORDERED: MAG HYDROX/AL HYDROX/SIMETH 30 ML UDC PO PRN (20:00)
[2019-03-27] MEDS ORDERED: TRAZODONE 50 MG TABLET PO PRN (20:00)
[2019-03-27] MEDS ORDERED: HOME MED MISCELLANEOUS XX SCH ×2 (20:00)
[2019-03-27] MEDS ORDERED: DEXTROSE 50%-WATER 50 ML DISP.SYRIN IV PRN (20:00)
[2019-03-27] MEDS ORDERED: ACETAMINOPHEN 325 MG TABLET PO PRN (20:00)
[2019-03-27] MEDS ORDERED: MAGNESIUM HYDROXIDE 30 ML UDC PO PRN (20:00)
[2019-03-27] MEDS ORDERED: HYDROCODONE/APAP 5/325MG 1 EACH TABLET PO PRN (20:00)
--- NOTE | 2019-03-27 20:17 | NUR ---
RECIEVED BED 110
--- NOTE | 2019-03-27 20:41 | NUR ---
REPORT GIVEN TO ZEE JUDD.
[2019-03-27 21:00] VITALS: BP 140/91
[2019-03-27] MEDS: PANTOPRAZOLE 40 MG VIAL IV SCH (21:00)
--- NOTE | 2019-03-27 21:00 | NUR ---
RN ADMITTING NOTES: RECEIVED NEW ADMIT PATIENT WITH DX OF POSSIBLE GASTRITIS/ESOPHAGITIS WITH SECONDARY DIAGNOSIS OF HYPERGLYCEMIA. A&OX4. VERBALLY RESPONSIVE. NO RESPIRATORY DISTRESS. NO C/O PAIN. SKIN INTACT AND WARM TO TOUCH. ON CONSISTENT CARB DIET. (R) FA #20 INTACT, PATENT, AND FLUSHING WELL. STARTED ON IVF NS AT 75 MLS/HR, TOLERATING WELL. CHECKED PATIENT'S BLOOD SUGAR = 304. ALL NEEDS ATTENDED. CALL LIGHT PLACED WITHIN REACH. WILL CONT. TO MONITOR.
--- NOTE | 2019-03-27 21:02 | NUR ---
PATIENT TRANSFERRED TO ROOM 110-1 IN STABLE CONDITION. NO DISTRESS NOTED.
[2019-03-27 21:11] VITALS: BP 140/91
[2019-03-27] MEDS: IV NS 0.9% 1,000 ML IV PRN (21:20)
[2019-03-27] MEDS: BLOOD SUGAR DIAGNOSTIC 1 EACH STRIP IN SCH (21:33)
[2019-03-27] MEDS: INSULIN GLARGINE, 100 UNIT/ML CARTRIDGE SQ SCH (21:46)
[2019-03-27] MEDS: INSULIN REGULAR, HUMAN 100 UNIT/ML 3 ML VIAL SQ PRN (22:23)
[2019-03-28 04:00] VITALS: BP 144/95
[2019-03-28 05:50] LABS: BASOPHILS % (AUTO) 0.3 % (0.0-2.0); EOSINOPHILS % (AUTO) 1.7 % (0.0-6.0); HEMATOCRIT 37 % (39-51); HEMOGLOBIN 12.7 g/dL (13.5-17.5); LYMPHOCYTES # (AUTO) 0.4 /CMM (0.8-4.8); LYMPHOCYTES % (AUTO) 15.5 % (20.0-44.0); MEAN CORPUSCULAR HGB CONC 34 g/dl (31.0-36.0); MEAN CORPUSCULAR VOLUME 85 fL (80-96); MONOCYTES # (AUTO) 0.3 /CMM (0.1-1.30); MONOCYTES % (AUTO) 14.4 % (2.0-12.0); NEUTROPHILS # (AUTO) 1.6 /CMM (1.8-8.9); NEUTROPHILS % (AUTO) 68.1 % (43.0-81.0); PLATELET COUNT (AUTO) 58 /CMM (150-450); RED BLOOD CELL COUNT(AUTO) 4.32 MIL/uL (4.5-6.0); WHITE BLOOD COUNT (AUTO) 2.4 K/uL (4.3-11.0)
[2019-03-28 05:59] LABS: CALCIUM, SERUM 7.8 mg/dL (8.5-10.1); CREATININE 0.7 mg/dL (0.6-1.3); MAGNESIUM 1.5 mg/dL (1.8-2.4); PHOSPHORUS 2.9 mg/dL (2.5-4.9); POTASSIUM 3.4 mmol/L (3.5-5.1)
--- NOTE | 2019-03-28 07:00 | NUR ---
RN MS NOTE RECEIVED REPORT AT BEDSIDE. SOFTWARE SALES/O X4. RESPIRATION EVEN AND UNLABORED. IV R FA #20 RUNNING NS @ 75 ML/HR. SAFETY PRECAUTION IN PLACE. BED LOCKED AND LOW, SIDE RAILS UP X2, CALL LIGHT WITHIN REACH. WILL CONT' TO MONITOR.
--- NOTE | 2019-03-28 07:04 | NUR ---
RN CLOSING NOTES: PATIENT ASLEEP BUT EASILY AROUSABLE. A&OX4. NO RESPIRATORY DISTRESS. NO C/O PAIN AT THIS TIME. (R) FA 20G INTACT AND PATENT, RUNNING 75 MLS/HR. PATIENT IN STABLE CONDITION. ON NEUTROPENIC PRECAUTION. WILL ENDORSE TO AM SHIFT NURSE FOR CONTINUITY OF CARE.
--- NOTE | 2019-03-28 07:50 | NUR ---
RN MS NOTE CALLED PHARMACY TO BRING AN INSULIN R.
[2019-03-28 08:00] VITALS: BP 146/97
[2019-03-28] MEDS: BLOOD SUGAR DIAGNOSTIC 1 EACH STRIP IN SCH ×4 (08:15→21:30)
[2019-03-28] MEDS: SULFAMETH/TRIMETH 800/160 MG 1 UDTAB TABLET PO SCH (08:41)
[2019-03-28] MEDS: LISINOPRIL (20MG) 20 MG TABLET PO SCH (08:41)
[2019-03-28] MEDS: VENLAFAXINE XR 150 MG CAP.SR.24H PO SCH (08:41)
[2019-03-28] MEDS: AMLODIPINE BESYLATE 5 MG TABLET PO SCH (08:42)
[2019-03-28] MEDS: INSULIN REGULAR, HUMAN 100 UNIT/ML 3 ML VIAL SQ PRN ×4 (08:44→21:45)
[2019-03-28] MEDS ORDERED: POTASSIUM CHLORIDE 20 MEQ TAB.PRT.SR PO ONE (09:00)
[2019-03-28] MEDS ORDERED: MAGNESIUM OXIDE 400 MG TABLET PO ONE (09:00)
[2019-03-28 10:23] LABS: BAND % (MANUAL) 7 % (0.0-5.0); NEUTROPHILS % (MANUAL) 60 (42-76)
[2019-03-28 10:24] LABS: LYMPHOCYTES % (MANUAL) 17 % (16-48); MONOCYTES % (MANUAL) 16 % (0-11.0)
--- NOTE | 2019-03-28 10:48 | NUR ---
RN MS NOTE ASKED PT TO HAVE SOMEONE BRING HIV HOME MEDICATIONS NASIM AND ALEXANDRE FROM HOME. PHARMACY MADE AWARE.
--- NOTE | 2019-03-28 11:04 | NUR ---
RN MS NOTE PROTONIX WAS NOT ADMINISTERED BY PM NURSE ON 03/27/19. REASON UNKNOWN.
[2019-03-28] MEDS: PANTOPRAZOLE 40 MG VIAL IV SCH ×2 (11:06→20:03)
[2019-03-28] MEDS: MEGESTROL ACETATE 40 MG TABLET PO SCH ×2 (11:07→16:27)
[2019-03-28] MEDS: IV NS 0.9% 1,000 ML IV PRN (12:31)
[2019-03-28] MEDS: ONDANSETRON HCL/PF 4 MG/2 ML VIAL IVP PRN (13:15)
[2019-03-28 16:00] VITALS: BP_SYST 144; BP_SYST 165; BP_DIAS 100; BP_DIAS 85
[2019-03-28] MEDS: FLUCONAZOLE (100 MG) 100 MG TABLET PO SCH (17:55)
--- NOTE | 2019-03-28 18:50 | NUR ---
RN MS CLOSING NOTES: NO SIGNIFICANT CHANGE DURING THE SHIFT. NO RESPIRATORY DISTRESS OR SOB AT THIS TIME. (R) FA 20G INTACT AND PATENT, RUNNING 75 MLS/HR. PATIENT IN STABLE CONDITION. ON NEUTROPENIC PRECAUTION. ACCORDING TO THE PATIENT HIS BROTHER WILL BRING HIS HIV HOME MEDICATION TONIGHT OR TOMORROW. SAFETY PRECAUTION IN PLACE. BED LOW, LOCKED, SIDE RAILS UP X2. ALL NEEDS ATTENDED. WILL ENDORSE TO PM SHIFT NURSE FOR CONTINUITY OF CARE.
[2019-03-28] MEDS: HYDROCODONE/APAP 10/325MG 1 EA TABLET PO PRN (20:03)
[2019-03-28] MEDS: INSULIN GLARGINE, 100 UNIT/ML CARTRIDGE SQ SCH (21:43)
[2019-03-29] VITALS: BP 105/61
[2019-03-29] MEDS: ONDANSETRON HCL/PF 4 MG/2 ML VIAL IVP PRN ×2 (01:00→09:46)
[2019-03-29] MEDS: HYDROCODONE/APAP 10/325MG 1 EA TABLET PO PRN (01:01)
[2019-03-29] MEDS: BLOOD SUGAR DIAGNOSTIC 1 EACH STRIP IN SCH ×2 (06:35→12:17)
[2019-03-29 06:52] LABS: BASOPHILS % (AUTO) 0.2 % (0.0-2.0); EOSINOPHILS % (AUTO) 1.1 % (0.0-6.0); HEMATOCRIT 39 % (39-51); HEMOGLOBIN 13.4 g/dL (13.5-17.5); LYMPHOCYTES # (AUTO) 0.5 /CMM (0.8-4.8); LYMPHOCYTES % (AUTO) 11.4 % (20.0-44.0); MEAN CORPUSCULAR HGB CONC 34 g/dl (31.0-36.0); MEAN CORPUSCULAR VOLUME 84 fL (80-96); MONOCYTES # (AUTO) 0.4 /CMM (0.1-1.30); MONOCYTES % (AUTO) 9.6 % (2.0-12.0); NEUTROPHILS # (AUTO) 3.1 /CMM (1.8-8.9); NEUTROPHILS % (AUTO) 77.7 % (43.0-81.0); PLATELET COUNT (AUTO) 63 /CMM (150-450); RED BLOOD CELL COUNT(AUTO) 4.66 MIL/uL (4.5-6.0)
[2019-03-29 07:30] LABS: CALCIUM, SERUM 7.8 mg/dL (8.5-10.1); CREATININE 0.8 mg/dL (0.6-1.3); MAGNESIUM 1.6 mg/dL (1.8-2.4); POTASSIUM 3.4 mmol/L (3.5-5.1)
--- NOTE | 2019-03-29 07:30 | NUR ---
RN MS NOTE RECEIVED REPORT AT BEDSIDE. JAVA INTEGRATION DEVELOPER/O X4. RESPIRATION EVEN AND UNLABORED. IV R FA #20 RUNNING NS @ 75 ML/HR. SAFETY PRECAUTION IN PLACE. BED LOCKED AND LOW, SIDE RAILS UP X2, CALL LIGHT WITHIN REACH. WILL CONT' TO MONITOR.
[2019-03-29] MEDS: INSULIN REGULAR, HUMAN 100 UNIT/ML 3 ML VIAL SQ PRN ×2 (07:52→12:19)
[2019-03-29 08:00] VITALS: BP 105/66
[2019-03-29] MEDS: SULFAMETH/TRIMETH 800/160 MG 1 UDTAB TABLET PO SCH (08:24)
[2019-03-29] MEDS: FLUCONAZOLE (100 MG) 100 MG TABLET PO SCH (08:24)
[2019-03-29] MEDS: MEGESTROL ACETATE 40 MG TABLET PO SCH (08:25)
[2019-03-29] MEDS: PANTOPRAZOLE 40 MG VIAL IV SCH (08:25)
[2019-03-29] MEDS: VENLAFAXINE XR 150 MG CAP.SR.24H PO SCH (08:25)
[2019-03-29] MEDS: AMLODIPINE BESYLATE 5 MG TABLET PO SCH (08:26)
[2019-03-29 08:27] VITALS: BP 105/66
[2019-03-29] MEDS: LISINOPRIL (20MG) 20 MG TABLET PO SCH (08:27)
[2019-03-29] MEDS ORDERED: POTASSIUM CHLORIDE 20 MEQ TAB.PRT.SR PO ONE (09:00)
[2019-03-29] MEDS: Magnesium 1GM/D5W 100ML PREMIX 100 ML IV SCH ×2 (09:35→10:53)
--- NOTE | 2019-03-29 10:16 | NUR ---
RN MS NOTE DR. DESHPANDE AT BEDSIDE. PATIENT SAID THAT HE WANTED TO GET DISCHARGE TODAY. DR. DESHPANDE EXPLAINED HIM THE ADVANTAGES OF BEING UNDER CARE AT HOSPITAL BUT HE STILL INSISTS ON GETTING DISCHARGE. HE SAID "I FEEL GOOD ENOUGH TO GO HOME AND I NEED TO TAKE CARE OF MY MOM."
[2019-03-29] MEDS ORDERED: HYDR-4384 PO (10:26)
[2019-03-29] MEDS ORDERED: PANT40TA2 PO (10:26)
[2019-03-29] MEDS ORDERED: FLUC100T8 PO (10:26)
[2019-03-29] MEDS ORDERED: MEGE40TA PO (10:26)
--- NOTE | 2019-03-29 11:06 | NUR ---
RN MS NOTE PATIENT TOOK SHOWER.
--- NOTE | 2019-03-29 13:12 | NUR ---
RN MS NOTE PATIENT GOT DISCHARGED. STABLE VS AND AMBULATORY. HE CALLED [facility] TO PICK HIM UP. NURSE WALKED OUT WITH THE PATIENT AND LEFT HIM WITH SECURITY ELSIE WHILE WAITING FOR THE [facility].
== END 2019-03-29 13:03 | disposition home or self-care (01) | DRG 392 ==
LOC: ER 17:10 → TELE-TD 20:47 → MEDSG1 21:05
PROVIDERS: ADMIT Nurse Practitioner Acute Care; ATTEND Nurse Practitioner Acute Care
DX: K29.70 Gastritis, unspecified, without bleeding (principal); E87.1 Hypo-osmolality and hyponatremia; E44.1 Mild protein-calorie malnutrition; I10 Essential (primary) hypertension; E11.65 Type 2 diabetes mellitus with hyperglycemia; Z88.0 Allergy status to penicillin; E86.1 Hypovolemia; D72.819 Decreased white blood cell count, unspecified; I70.90 Unspecified atherosclerosis; R13.10 Dysphagia, unspecified; K20.8 Other esophagitis; E83.42 Hypomagnesemia; E87.6 Hypokalemia; F32.9 Major depressive disorder, single episode, unspecified; K21.9 Gastro-esophageal reflux disease without esophagitis
CPT/HCPCS: 36415; 71045-TC; 80048-TC; 80061-TC; 80076-TC; 82962-TC; 83735-TC; 84100-TC; 85025-TC; 87081-TC; 93971-TC; C9113; G0378; J1815; J2405; J3475; J7030

== ENCOUNTER 2019-04-23 15:18 | Emergency (ER) | payer OTHER ==
[~2019-04-23] VITALS: Ht 162.6 cm; Wt 60.3 kg
[~2019-04-23 15:18] MED LIST changes: +FLUC100T8 PO; +HYDR-4384 PO; +MEGE40TA PO; +PANT40TA2 PO
--- NOTE | 2019-04-23 15:23 | NUR ---
CAME IN FOR ABDOMINAL PAIN/BLOATED FEELING, FEVER, HIGH BLOOD SUGAR 230, +HIV, SWELLING ON LEGS". ALSO C/O PAINFUL SCROTUM AREA. PATIENT AFEBRILE AT 98.1F, TO ER BED 9, HOOKED TO MONITOR, CHANGED TO HOSP GOWN, PROVIDED W WARM BLANKET, AWAITING MD PAUL.
--- NOTE | 2019-04-23 15:35 | NUR ---
DR AGARWAL AT BEDSIDE
--- NOTE | 2019-04-23 15:56 | NUR ---
US TECH AT BEDSIDE
[2019-04-23 16:02] LABS: BASOPHILS % (AUTO) 0.2 % (0.0-2.0); EOSINOPHILS % (AUTO) 0.2 % (0.0-6.0); HEMATOCRIT 39 % (39-51); HEMOGLOBIN 13.2 g/dL (13.5-17.5); LYMPHOCYTES # (AUTO) 0.5 /CMM (0.8-4.8); MEAN CORPUSCULAR HGB CONC 34 g/dl (31.0-36.0); MEAN CORPUSCULAR VOLUME 86 fL (80-96); MONOCYTES # (AUTO) 0.5 /CMM (0.1-1.30); MONOCYTES % (AUTO) 6.3 % (2.0-12.0); NEUTROPHILS # (AUTO) 7.1 /CMM (1.8-8.9); NEUTROPHILS % (AUTO) 87.3 % (43.0-81.0); PLATELET COUNT (AUTO) 73 /CMM (150-450); RED BLOOD CELL COUNT(AUTO) 4.53 MIL/uL (4.5-6.0); WHITE BLOOD COUNT (AUTO) 8.2 K/uL (4.3-11.0)
[2019-04-23] MEDS: IV NS 0.9% 500 ML BAG IV ONE (16:11)
--- NOTE | 2019-04-23 16:15 | NUR ---
WHEELED OUT VIA RNEY FOR CT SCAN
[2019-04-23 16:16] LABS: BILIRUBIN,DIRECT 0.1 mg/dL (0.0-0.2); BILIRUBIN,TOTAL 0.4 mg/dL (0.2-1.0); CALCIUM, SERUM 8.8 mg/dL (8.5-10.1); CREATININE 0.9 mg/dL (0.6-1.3); POTASSIUM 3.4 mmol/L (3.5-5.1); TOTAL PROTEIN, SERUM 7.4 g/dL (6.4-8.2)
[2019-04-23 16:27] LABS: APPEARANCE,URINE Cloudy (CLEAR); BILIRUBIN,URINE SMALL (NEGATIVE); BLOOD, URINE Large Ery/uL (NEGATIVE); KETONES,URINE Trace (NEGATIVE); LEUKOCYTE ESTERASE ,URINE Small (NEGATIVE); NITRITE, URINE Negative (NEGATIVE); PROTEIN,URINE 100 mg/dl (NEGATIVE); UGLUCOSE >=1000 mg/dL (NEGATIVE)
[2019-04-23 16:34] LABS: COLOR,URINE DARK YELLOW (YELLOW)
[2019-04-23 16:43] LABS: BACTERIA,URINE 1+ /HPF (None Seen); RBC,URINE 81-100 /HPF (0-2); SQUAMOUS EPITHELIAL CELL,UR Few /HPF (None Seen)
[2019-04-23 16:45] LABS: EOSINOPHILS % (MANUAL) 1 % (0-4); LYMPHOCYTES % (MANUAL) 9 % (16-48); MONOCYTES % (MANUAL) 5 % (0-11.0); NEUTROPHILS % (MANUAL) 85 (42-76)
--- NOTE | 2019-04-23 16:46 | NUR ---
MOTHER AT BEDSIDE
[2019-04-23] MEDS: CEFTRIAXONE 0.25 G in IV D5W 50 ML IV ONE (17:20)
--- NOTE | 2019-04-23 17:52 | NUR ---
IV removed. Catheter intact and site benign. Pressure and 4x4 applied to site. No bleeding noted.Patient discharged to home in stable condition. Written and verbal after care instructions given. Patient verbalizes understanding of instruction.
[2019-04-23 18:01] VITALS: BP 132/81
== END 2019-04-23 18:02 | disposition home or self-care (01) ==
LOC: ER 15:18
DX: N45.1 Epididymitis (principal); E11.9 Type 2 diabetes mellitus without complications; I10 Essential (primary) hypertension; F41.9 Anxiety disorder, unspecified; Z98.890 Other specified postprocedural states; Z88.0 Allergy status to penicillin; Z60.2 Problems related to living alone; Z79.899 Other long term (current) drug therapy
CPT/HCPCS: 36415; 74176; 76870; 80048; 80076; 81001; 83690; 85025; 87086; 96365; 99284; J0696; J7040; J7060; 81000-TC

== ENCOUNTER 2020-01-01 18:12 | Inpatient (IN) | payer OTHER ==
[~2020-01-01] VITALS: Ht 170.2 cm; Wt 57.2 kg
[~2020-01-01 18:12] MED LIST changes: -MEGE40TA PO; +MEGE40TA5 PO
[2020-01-01] MEDS ORDERED: LABETALOL HCL IV 100MG VIAL IV ONE ×2 (18:30→20:30)
[2020-01-01 18:45] LABS: BASOPHILS % (AUTO) 0.3 % (0.0-2.0); EOSINOPHILS % (AUTO) 0.8 % (0.0-6.0); HEMATOCRIT 43 % (39-51); HEMOGLOBIN 14.5 g/dL (13.5-17.5); LYMPHOCYTES # (AUTO) 0.6 /CMM (0.8-4.8); LYMPHOCYTES % (AUTO) 13.7 % (20.0-44.0); MEAN CORPUSCULAR HGB CONC 33 g/dl (31.0-36.0); MEAN CORPUSCULAR VOLUME 86 fL (80-96); MONOCYTES # (AUTO) 0.4 /CMM (0.1-1.30); MONOCYTES % (AUTO) 8.8 % (2.0-12.0); NEUTROPHILS # (AUTO) 3.3 /CMM (1.8-8.9); NEUTROPHILS % (AUTO) 76.4 % (43.0-81.0); PLATELET COUNT (AUTO) 72 /CMM (150-450); RED BLOOD CELL COUNT(AUTO) 5.06 MIL/uL (4.5-6.0); WHITE BLOOD COUNT (AUTO) 4.3 K/uL (4.3-11.0)
[2020-01-01] MEDS ORDERED: LABETALOL HCL IV 100MG VIAL ONE (18:47)
[2020-01-01 19:02] LABS: CALCIUM, SERUM 9.2 mg/dL (8.5-10.1); CARBON DIOXIDE 27 mmol/L (21-32); CHLORIDE 96 mmol/L (98-107); CREATININE 1.1 mg/dL (0.6-1.3); SODIUM SERUM 131 mmol/L (136-145); UREA NITROGEN, BLOOD 18 mg/dL (7-18)
--- NOTE | 2020-01-01 19:06 | NUR ---
SENT BY PMD FOR HYPERTENSION. C/O HEADACHE/LIGHTHEADEDNESS X 2 DAYS. PT AAOX4, RR EVEN & UNLABORED. DENIES CP, SOB, N/V, WEAKNESS AT THIS TIME. PT SEEN & EVAL'D BY DR. WEBER. PLACED ON CHOCOLATIER, SR. MEDICATED FOR HI BP, PT KARI WELL. WILL CONT TO MONITOR.
--- NOTE | 2020-01-01 19:07 | NUR ---
PT TO CT VIA [facility].
[2020-01-01 19:11] LABS: GLUCOSE 530 mg/dL (74-106)
--- NOTE | 2020-01-01 19:11 | NUR ---
PATIENT CAME TO ER BED 1 C/O HIGH BLOOD PRESSURE. PATIENT STATES THAT HIS MD TOLD HIM TO COME TO THE ER FOR FURTHER EVAL. FOR BLOOD PRESSURE. PATIENT STATES THAT HE HAS NOT EATEN SINCE THE MORNING. BLOOD SUGAR AT 482. PATIENT IS AAOX4. NO SOB. BREATHING EVENLY AND UNLABORED ON ROOM AIR. CONNECTED TO PRICING COORDINATOR.
--- NOTE | 2020-01-01 19:11 | NUR ---
ASSUMED CARE FOR PATIENT FOR RYAN.
[2020-01-01] MEDS ORDERED: POTASSIUM CHLORIDE 20 MEQ TAB.PRT.SR PO ONE ×2 (19:20→19:30)
[2020-01-01] MEDS ORDERED: INSULIN REGULAR, HUMAN 100 UNIT/ML 10 ML VIAL ONE (19:20)
[2020-01-01] MEDS ORDERED: INSULIN REGULAR, HUMAN 100 UNIT/ML 10 ML VIAL IV ONE (19:30)
[2020-01-01 20:20] LABS: BAND % (MANUAL) 1 % (0.0-5.0); LYMPHOCYTES % (MANUAL) 39 % (16-48); MONOCYTES % (MANUAL) 6 % (0-11.0); NEUTROPHILS % (MANUAL) 54 (42-76)
[2020-01-01] MEDS ORDERED: ZOLPIDEM TARTRATE 5 MG TABLET PO PRN (22:30)
[2020-01-01] MEDS ORDERED: MAG HYDROX/AL HYDROX/SIMETH 30 ML UDC PO PRN (22:30)
[2020-01-01] MEDS ORDERED: Z GUARD REMEDY 2 OZ OINT TP PRN (22:30)
[2020-01-01] MEDS ORDERED: ACETAMINOPHEN 325 MG TABLET PO PRN (22:30)
[2020-01-01] MEDS ORDERED: MAGNESIUM HYDROXIDE 30 ML UDC PO PRN (22:30)
[2020-01-01] MEDS ORDERED: ONDANSETRON HCL/PF 4 MG/2 ML VIAL IVP PRN (22:30)
--- NOTE | 2020-01-02 00:03 | NUR ---
REPORT GIVEN TO OPAL JUDD FOR RYAN.
[2020-01-02 00:15] VITALS: BP 127/83
--- NOTE | 2020-01-02 00:15 | NUR ---
DRIER HELPER ADMITTING NOTES RECEIVED PT FROM ER VIA [facility] IN STABLE CONDITION. RESPIRATIONS EVEN AND UNLABORED WITH NO S/S OF ACUTE DISTRESS OR SOB NOTED. NO COMPLAINTS OF PAIN AT THIS TIME. PT NOTED WITH VINCENTAND #20G PATENT AND INTACT AND SL. ORIENTED PT TO UNIT AND STAFF. SAFETY MEASURES IN PLACE WITH BED IN LOWEST LOCKED POSITION WITH SIDE RAILS UP X2. CALL LIGHT WITHIN REACH. WILL CONTINUE TO MONITOR.
[2020-01-02] MEDS ORDERED: hydrALAZINE HCL IV 20 MG VIAL IV PRN (00:30)
[2020-01-02] MEDS ORDERED: DEXTROSE 50%-WATER 50 ML DISP.SYRIN IV PRN (00:30)
[2020-01-02] MEDS: IV NS 0.9% 1,000 ML IV PRN ×2 (01:06→15:43)
[2020-01-02] MEDS: BLOOD SUGAR DIAGNOSTIC 1 EACH STRIP IN SCH ×6 (01:22→20:43)
[2020-01-02] MEDS: INSULIN REGULAR, HUMAN 100 UNIT/ML 3 ML VIAL SQ PRN ×6 (01:37→20:44)
[2020-01-02 04:00] VITALS: BP 141/91
--- NOTE | 2020-01-02 07:34 | NUR ---
TELE/RN OPENING NOTES RECEIVED PATIENT SLEEPING ON BED, EASILY AROUSABLE BY NAMED AND LIGHT TOUCH. PATIENT ALERT AND ORIENTED X3. DENIES PAIN AT THIS TIME. PATIENT IN NO APPARENT RESPIRATORY DISTRESS NOTED. PATIENT ON TELE MONITOR SB 53. WILL CONTINUE TO MONITOR.
--- NOTE | 2020-01-02 07:39 | NUR ---
TRACK INSPECTING SUPERVISOR NOTES PT IN BED RESTING. PT A/O X3 AND ABLE TO MAKE NEEDS KNOWN. RESPIRATIONS EVEN AND UNLABORED WITH NO S/S OF ACUTE DISTRESS OR SOB NOTED THROUGHOUT SHIFT. NO COMPLAINTS OF PAIN AT THIS TIME. PT NOTED WITH RAEGAN #20G PATENT AND INTACT AND SL. SAFETY MEASURES IN PLACE WITH BED IN LOWEST LOCKED POSITION WITH SIDE RAILS UP X2. CALL LIGHT WITHIN REACH. WILL ENDORSE TO ONCOMING NURSE FOR RYAN.
[2020-01-02 07:48] VITALS: BP 138/91
[2020-01-02] MEDS: PANTOPRAZOLE 40 MG TABLET.DR PO SCH (07:52)
[2020-01-02] MEDS ORDERED: ESCI10TA PO (10:00)
[2020-01-02] MEDS ORDERED: AMLODIPINE BESYLATE 5 MG TABLET PO SCH (10:00)
[2020-01-02] MEDS ORDERED: ATOR10TA PO (10:00)
[2020-01-02] MEDS ORDERED: PANTOPRAZOLE 40 MG TABLET.DR PO SCH (10:00)
[2020-01-02] MEDS ORDERED: HYDROCHLOROTHIAZIDE 25 MG TABLET PO SCH (10:00)
[2020-01-02] MEDS ORDERED: BICT1TAB PO (10:00)
[2020-01-02] MEDS ORDERED: OMEP40CA13 PO (10:01)
[2020-01-02] MEDS ORDERED: METF-440 PO (10:01)
[2020-01-02] MEDS ORDERED: AMLO-61 PO (10:06)
[2020-01-02] MEDS: VALSARTAN 80 MG TABLET PO SCH (10:33)
[2020-01-02] MEDS: AMLODIPINE BESYLATE 5 MG TABLET PO SCH (10:33)
[2020-01-02] MEDS: glipiZIDE 5 MG TABLET PO SCH ×2 (10:34→17:25)
--- NOTE | 2020-01-02 11:10 | NUR ---
BANKING ATTORNEY PERFORMING THE EXAM. WILL ATTEMPT DUPLEX KIDNEY LATER
--- NOTE | 2020-01-02 11:26 | NUR ---
MS/BINTA CUMMINS IS AWARE FOR HOME MEDICATION RECONCILIATION. Addendum: 01/02/20 at 1128 by MELINDA ARANA RN ERROR
--- NOTE | 2020-01-02 11:28 | NUR ---
MS/RN NOTES SHANDA BYERS FAMILY SERVICE AIDE IS AWARE FOR HOME MEDICATION RECONCILIATION.
[2020-01-02 12:32] LABS: APPEARANCE,URINE CLEAR (CLEAR); BILIRUBIN,URINE NEGATIVE (NEGATIVE); BLOOD, URINE NEGATIVE Ery/uL (NEGATIVE); COLOR,URINE YELLOW (YELLOW); KETONES,URINE NEGATIVE (NEGATIVE); LEUKOCYTE ESTERASE ,URINE NEGATIVE (NEGATIVE); NITRITE, URINE NEGATIVE (NEGATIVE); PH,URINE 5.5 (5.0-8.0); PROTEIN,URINE NEGATIVE (NEGATIVE); UGLUCOSE >=1000 mg/dL (NEGATIVE); UROBILINOGEN,URINE 0.2 EU/dL (0.2)
[2020-01-02 12:37] LABS: OSMOLALITY,URINE 908 mOS/kg (340-1090)
[2020-01-02 12:42] LABS: URINE SODIUM, RANDOM 137 mmol/l (40-220)
[2020-01-02 13:24] LABS: BACTERIA,URINE Rare /HPF (None Seen); RBC,URINE 0-2 /HPF (0-2); SQUAMOUS EPITHELIAL CELL,UR Rare /HPF (None Seen)
[2020-01-02 14:05] LABS: BASOPHILS % (AUTO) 0.3 % (0.0-2.0); EOSINOPHILS % (AUTO) 0.8 % (0.0-6.0); HEMATOCRIT 42 % (39-51); LYMPHOCYTES # (AUTO) 0.6 /CMM (0.8-4.8); LYMPHOCYTES % (AUTO) 13.3 % (20.0-44.0); MEAN CORPUSCULAR HGB CONC 34 g/dl (31.0-36.0); MEAN CORPUSCULAR VOLUME 85 fL (80-96); MONOCYTES # (AUTO) 0.3 /CMM (0.1-1.30); MONOCYTES % (AUTO) 7.1 % (2.0-12.0); NEUTROPHILS # (AUTO) 3.6 /CMM (1.8-8.9); NEUTROPHILS % (AUTO) 78.5 % (43.0-81.0); PLATELET COUNT (AUTO) 68 /CMM (150-450); RED BLOOD CELL COUNT(AUTO) 4.93 MIL/uL (4.5-6.0); WHITE BLOOD COUNT (AUTO) 4.6 K/uL (4.3-11.0)
[2020-01-02 14:33] LABS: THYROID STIMULATING HORMONE 0.731 uIU/mL (0.358-3.74)
[2020-01-02 15:41] LABS: BILIRUBIN,TOTAL 0.3 mg/dL (0.2-1.0); CALCIUM, SERUM 8.7 mg/dL (8.5-10.1); CREATININE 0.8 mg/dL (0.6-1.3); MAGNESIUM 1.7 mg/dL (1.8-2.4); PHOSPHORUS 2.9 mg/dL (2.5-4.9); POTASSIUM 3.7 mmol/L (3.5-5.1)
[2020-01-02 15:45] LABS: BAND % (MANUAL) 3 % (0.0-5.0); EOSINOPHILS % (MANUAL) 2 % (0-4); LYMPHOCYTES % (MANUAL) 9 % (16-48); MONOCYTES % (MANUAL) 7 % (0-11.0); NEUTROPHILS % (MANUAL) 79 (42-76)
[2020-01-02 15:52] VITALS: BP 141/75
[2020-01-02] MEDS: HYDROCODONE/APAP 5/325MG 1 EACH TABLET PO PRN (15:56)
--- NOTE | 2020-01-02 16:05 | NUR ---
MS/RN NOTES PATIENT COMPLAINED OF PAIN RATED 8/10 NORCO 5/325 MG 1 TAB ORAL WAS GIVEN. WILL CONTINUE TO MONITOR.
--- NOTE | 2020-01-02 18:53 | NUR ---
MS/RN CLOSING NOTES PATIENT IS ON BED, ALERT AND ORIENTED X3. PATIENT IN NO APPARENT RESPIRATORY DISTRESS NOTED.DENIES PAIN AT THIS TIME. IV ACCESS AT LEFT HAND # 18 G WITH IV FLUID OF NS 1L AT 75 ML/HR ON AND INFUSING WELL. SEEN AND EXAMINED BY MD WITH ORDERS MADE AND CARRIED OUT. ALL DUE MEDICATION WAS GIVEN. CHECKED PATIENT EVERY 2 HOURS. SAFETY PRECAUTION IN PLACED. BED IN LOWEST POSITION, SIDE RAILS UP X2 AND LOCKED. CALL LIGHT WITHIN REACH. WILL ENDORSED TO SESSIONS CLERK FOR RYAN.
[2020-01-02 20:00] VITALS: BP 131/93
[2020-01-02 20:24] VITALS: BP 131/93
--- NOTE | 2020-01-02 20:33 | NUR ---
RN NOTES ALERT AND ORIENTED X4, STABLE ON ROOM AIR, DENIES PAIN AT THIS TIME, IVF AT 75 ML/HR, URINAL AT THE BEDSIDE, CALL LIGHT WITHIN REACH, WILL CONTINUE TO MONITOR
[2020-01-02] MEDS ORDERED: MAGNESIUM OXIDE 400 MG TABLET PO ONE (21:00)
[2020-01-02] MEDS: DOXAZOSIN MESYLATE (1 MG) 1 MG TABLET PO SCH (21:07)
[2020-01-03] MEDS: INSULIN REGULAR, HUMAN 100 UNIT/ML 3 ML VIAL SQ PRN ×6 (00:45→21:39)
[2020-01-03] MEDS: BLOOD SUGAR DIAGNOSTIC 1 EACH STRIP IN SCH ×6 (00:51→21:39)
--- NOTE | 2020-01-03 00:57 | NUR ---
RN NOTES REFUSED INSULIN BG 188, PER PATIENT "I DON'T WANT TOO MUCH INSULIN IN MY BODY." EXPLAINED TO PATIENT ORDER, RISK AND BENEFITS, PT STILL REFUSED.
[2020-01-03] MEDS: IV NS 0.9% 1,000 ML IV PRN ×2 (02:56→17:24)
--- NOTE | 2020-01-03 05:20 | NUR ---
pt refusing EKG at this time. RN notified.
--- NOTE | 2020-01-03 06:24 | NUR ---
RN NOTES ALERT AND ORIENTED X4, ROOM AIR, DENIES ANY PAIN AT THIS TIME, IRRITABLE, REFUSING ACCUCHECK Q4HRS, EXPLAINED TO PATIENT RATIONALE OF ORDER, PATIENT STILL REFUSED, WANTS TO BE LEFT ALONE, REFUSING EKG, ADVICED RT TO COME BACK AT 0600. VOIDING VIA URINAL, BEDREST, DID NOT GET OUT OF BED, IVF AT 75 ML/HR, MAGNESIUM 1.7, NEW ORDER OF MAG OXIDE 40 MG PO X1, RN RECOMMENDS TO CHANGE ACCUCHECK TO ACHS AND LANTUS OR LEVEMIR FOR PRISON COVERAGE.
--- NOTE | 2020-01-03 07:37 | NUR ---
MS/RN OPENING NOTES RECEIVED PATIENT ON BED AWAKE, ALERT AND ORIENTED X3. PATIENT DENIES PAIN AT THIS TIME. PATIENT IN NO APPARENT RESPIRATORY DISTRESS NOTED. WILL CONTINUE TO MONITOR.
[2020-01-03] MEDS: PANTOPRAZOLE 40 MG TABLET.DR PO SCH (07:39)
--- NOTE | 2020-01-03 07:58 | NUR ---
MS/RN NOTES PATIENT REFUSED FOR THE BLOOD PER INTERNATIONAL ACCOUNTANT. EXPLAINED THE RISK AND BENEFITS PATIENT STILL REFUSING. WILL CONTINUE TO MONITOR.
[2020-01-03 08:00] VITALS: BP 118/71
[2020-01-03] MEDS: glipiZIDE 5 MG TABLET PO SCH ×2 (08:30→16:14)
[2020-01-03] MEDS: HYDROCODONE/APAP 5/325MG 1 EACH TABLET PO PRN ×2 (08:30→21:49)
[2020-01-03] MEDS: VALSARTAN 80 MG TABLET PO SCH (09:00)
[2020-01-03] MEDS: AMLODIPINE BESYLATE 5 MG TABLET PO SCH (09:00)
--- NOTE | 2020-01-03 09:24 | NUR ---
MS/RN NOTES PATIENT BP 118/71 BP MEDS NOT GIVEN. BLOOD SUGAR 409MG/DL 20 UNIT INSULIN WAS GIVEN. SHANDA BYERS IS AWARE. WILL CONTINUE TO MONITOR.
--- NOTE | 2020-01-03 11:35 | NUR ---
MS/RN NOTES SHANDA BRAY DIABETIC DIET. NOTED AND CARRIED OUT.
[2020-01-03 12:02] LABS: CALCIUM, SERUM 8.1 mg/dL (8.5-10.1); CREATININE 0.9 mg/dL (0.6-1.3); MAGNESIUM 1.7 mg/dL (1.8-2.4); PHOSPHORUS 2.7 mg/dL (2.5-4.9); POTASSIUM 3.5 mmol/L (3.5-5.1)
[2020-01-03 12:12] LABS: THYROID STIMULATING HORMONE 0.53 uIU/mL (0.358-3.74); URIC ACID 3.8 mg/dL (2.6-7.2)
[2020-01-03] MEDS: Magnesium 1GM/D5W 100ML PREMIX 100 ML IV SCH ×2 (15:06→16:15)
[2020-01-03 16:00] VITALS: BP 112/59
--- NOTE | 2020-01-03 19:18 | NUR ---
MS/RN CLOSING NOTES PATIENT IS ON BED, ALERT AND ORIENTED X3. PATIENT IN NO APPARENT RESPIRATORY DISTRESS NOTED.DENIES PAIN AT THIS TIME. IV ACCESS AT LEFT HAND # 18 G WITH IV FLUID OF NS 1L AT 75 ML/HR ON AND INFUSING WELL. SEEN AND EXAMINED BY MD WITH ORDERS MADE AND CARRIED OUT. ALL DUE MEDICATION WAS GIVEN. CHECKED PATIENT EVERY 2 HOURS. SAFETY PRECAUTION IN PLACED. BED IN LOWEST POSITION, SIDE RAILS UP X2 AND LOCKED. CALL LIGHT WITHIN REACH. PATIENT $100 ENDORSED TO ROSA TO GIVE IT TO [employer] CLERK SAFE AND FOR RYAN.
--- NOTE | 2020-01-03 19:35 | NUR ---
MS RN OPENING NOTES PATIENT AWAKE IN BED. A/OX4. ON RA. NO C/O SOB OR PAIN. BREATHING IS EVEN AND UNLABORED. IV PRESENT ON LEFT HAND, SIZE 18, INTACT & PATENT WITH NS RUNNING AT 75 ML/HR. DAY SHIFT RN ENDORSED PATIENT'S PERSONAL BELONGING ($100) TO BE SENT TO SAFE WITH NURSING DIESEL MECHANIC HELPER. SAFETY MEASURES IN PLACE AND PATIENT'S NEEDS MET. BED LOCKED, SIDE RAILS X2, CALL LIGHT WITHIN REACH. WILL CONTINUE TO MONITOR.
[2020-01-03 20:00] VITALS: BP 133/82
[2020-01-03] MEDS: DOXAZOSIN MESYLATE (1 MG) 1 MG TABLET PO SCH (21:30)
[2020-01-04] MEDS: BLOOD SUGAR DIAGNOSTIC 1 EACH STRIP IN SCH ×4 (01:08→12:44)
[2020-01-04] MEDS: INSULIN REGULAR, HUMAN 100 UNIT/ML 3 ML VIAL SQ PRN ×4 (01:12→12:48)
[2020-01-04] MEDS: HYDROCODONE/APAP 5/325MG 1 EACH TABLET PO PRN (06:45)
--- NOTE | 2020-01-04 07:06 | NUR ---
MS RN OPENING NOTES RECEIVED PATIENT RESTING IN BED AT THIS TIME. AOX4. NO SOB NOTED, NO S/S OF ANY ACUTE DISTRESS NOTED, NO C/O PAIN AT THIS TIME. RESPIRATIONS EVEN AND UNLABORED WITH EQUAL RISE AND FALL IN CHEST. IV ACCESS ON L-HAND G#18, INTACT, PATENT AND FLUSHING WELL. PT USES A URINAL AND ABLE TO AMBULATE. ASPIRATION AND SAFETY PRECAUTIONS IN PLACE. BED IN LOWEST LOCKED POSITION, SIDE RAILS UP, HEAD OF BED ELEVATED TO SEMI FOWLERS POSITION, CALL LIGHT WITHIN REACH. WILL CONTINUE TO MONITOR
--- NOTE | 2020-01-04 07:40 | NUR ---
MS RN CLOSING NOTES PATIENT SLEEPING IN BED, EASY TO AWAKEN. A/OX4. NO ACUTE CHANGES DURING SHIFT. IV REMAINS PRESENT ON LEFT HAND, SIZE 18, INTACT & PATENT WITH NS RUNNING AT 75 ML/HR. SAFETY MEASURES IN PLACE AND PATIENT'S NEEDS MET. BED LOCKED, SIDE RAILS X2, CALL LIGHT WITHIN REACH. ENDORSED TO DAY SHIFT RN PLAN OF CARE.
[2020-01-04 08:00] VITALS: BP 134/80
[2020-01-04] MEDS: PANTOPRAZOLE 40 MG TABLET.DR PO SCH (08:05)
[2020-01-04 08:37] LABS: CREATININE 0.8 mg/dL (0.6-1.3); MAGNESIUM 2.1 mg/dL (1.8-2.4); POTASSIUM 4.2 mmol/L (3.5-5.1)
[2020-01-04] MEDS: AMLODIPINE BESYLATE 5 MG TABLET PO SCH (08:43)
[2020-01-04 08:44] VITALS: BP 134/80
[2020-01-04] MEDS: VALSARTAN 80 MG TABLET PO SCH (08:44)
[2020-01-04] MEDS: glipiZIDE 5 MG TABLET PO SCH (08:44)
--- NOTE | 2020-01-04 13:17 | NUR ---
Social service consult requested by for possible homelessness. Per MD notes, pt is a 59-year-old male patient who presented to the Emergency department after being advised by his PCP second to elevated blood pressure, headache and lightheadedness. According to him, he had an episode of blurry vision and his BP readings were elevated for the past 2 days. He notified his [facility] PCP who advised him to seek emergency medical assistance. Pt has a medical history of hypertension, diabetes mellitus, gastroesophageal reflux disorder, depression, and HIV. He reported being compliant with his HIV medications and regularly follows up with his [facility] PCP. DOCTOR OF OPTOMETRY conducted chart review and met with the pt bedside. DOCTOR OF OPTOMETRY introduced self,explained the role of the SW and purpose of the visit. Pt is alert and oriented x 4 with appropriate affect. Pt reports, he resides with his brother but is not able to do so anymore due to his brother's mental illness. Pt reports, his brother has Schizophrenia and during his manic episodes, he is not able to live with him. Pt reports, he will be staying at his friend Gumaro Portillo's place located at [address] [place] [address] in [facility]. Gumaro's contact number is . Pt reports, he has section 8 housing but needs to look for a place. Pt is interested in an organization named [employer] that assists HIV clients with housing. DOCTOR OF OPTOMETRY provided pt with contact information for [place] located in [place]. Pt to f/u with them and register for housing services. Pt has a diagnosis of Depression and Anxiety. Pt reports, he has been depressed since his father a year ago. Pt's mother is in [facility] and is unable to travel to the due to COVID-19 restrictions. Pt is currently not receiving any mental health services at this time. DOCTOR OF OPTOMETRY encouraged pt to see a therapist/ psychiatrist to assist him with his depression. Pt was receptive and stated, he will follow up at his [facility] clinic since they can link him to mental health services. Pt denies suicidal and homicidal ideations at this time. DOCTOR OF OPTOMETRY provided pt with active listening, emotional support, supportive counseling, validation of feelings and positive coping skills. SW updated pt's bedside RN regarding pt's discharge plan. Homeless patient waiver form was provided to pt's RN to provide to the pt to sign upon discharge. Second Floor Operator is available for support as needed.
--- NOTE | 2020-01-04 16:30 | NUR ---
PATIENT C/O MISSING A WRIST WATCH. NURSE AND MIKEY BURGOS ASSESSED PATIENT'S BELONGINGS ANDD DID NOT FIND WRIST WATCH. CHARGE NURSE MADE AWARE. WILL CONTINUE WITH PLAN OF CARE
--- NOTE | 2020-01-04 16:50 | NUR ---
MS MEDICAID BUSINESS ANALYST NOTES PATIENT DISCHARGED HOME AT THIS TIME. PATIENT IN STABLE CONDITION. ALL CARE, NEEDS AND MEDICATIONS ADMINISTERED ANTICIPATED PER ORDER. DISCHARGE INSTRUCTIONS PROVIDED AND PATIENT VERBALIZES UNDERSTANDING. IV ACCESS IN LEFT HAND G#18 REMOVED, PRESSURE APPLIED, SECURED WITH GAUZE AND TAPE. NO SIGN OF BLEEDING OR INFILTRATION NOTED. ALL BELONGING ACCOUNTED FOR, SIGNED BY PATIENT AND FILED IN CHART. PATIENT'S $100 IN NURSING ENGINEERING GROUP MANAGER'S SAFE-KEEPING RETURNED TO PATIENT AND WITNESSED BY LORETTA JENSEN. PATIENT ACCOMPANIED TO LOBBY BY LORETTA JENSEN TO BE PICKED UP BY CAB
--- NOTE | 2020-01-04 17:50 | NUR ---
MS THREAT MONITORING ANALYST NOTES PATIENT DISCHARGED HOME AT THIS TIME. PATIENT IN STABLE CONDITION. ALL CARE, NEEDS AND MEDICATIONS ADMINISTERED ANTICIPATED PER ORDER. DISCHARGE INSTRUCTIONS PROVIDED AND PATIENT VERBALIZES UNDERSTANDING. IV ACCESS IN LEFT HAND G#18 REMOVED, PRESSURE APPLIED, SECURED WITH GAUZE AND TAPE. NO SIGN OF BLEEDING OR INFILTRATION NOTED. ALL BELONGING ACCOUNTED FOR, SIGNED BY PATIENT AND FILED IN CHART. PATIENT'S $100 IN NURSING ENGRAVER LETTERING'S SAFE-KEEPING RETURNED TO PATIENT AND WITNESSED BY LORETTA JENSEN. PATIENT ACCOMPANIED TO LOBBY BY LORETTA JENSEN TO BE PICKED UP BY CAB
[2020-01-05 13:17] LABS: *SPE A/G RATIO 0.8 (0.7-1.7); *SPE ALBUMIN 2.8 g/dL (2.9-4.4); *SPE ALPHA-1-GLOBULIN 0.2 g/dL (0.0-0.4); *SPE ALPHA-2-GLOBULIN 0.8 g/dL (0.4-1.0); *SPE GLOBULIN, TOTAL 3.6 g/dL (2.2-3.9); *SPE M-SPIKE Not Observed g/dL (Not Observed); *SPEGAMMA GLOBULIN 1.6 g/dL (0.4-1.8)
== END 2020-01-04 16:40 | disposition home or self-care (01) | DRG 305 ==
LOC: ER 18:21 → TELE 23:49 → MED 01-02 08:41
PROVIDERS: ADMIT Nurse Practitioner Acute Care; ATTEND Nurse Practitioner Acute Care
DX: I16.0 Hypertensive urgency (principal); E22.2 Syndrome of inappropriate secretion of antidiuretic hormone; I10 Essential (primary) hypertension; J45.909 Unspecified asthma, uncomplicated; D69.6 Thrombocytopenia, unspecified; F32.9 Major depressive disorder, single episode, unspecified; E11.65 Type 2 diabetes mellitus with hyperglycemia; I70.1 Atherosclerosis of renal artery; K21.0 Gastro-esophageal reflux disease with esophagitis; E86.1 Hypovolemia
CPT/HCPCS: 36415; 70450-TC; 71045-TC; 80048-TC; 80053-TC; 80061-TC; 81000-TC; 82550-TC; 82553; 82962-TC; 83605-TC; 83735-TC; 83935-TC; 84100-TC; 84155; 84165; 84300-TC; 84439-TC; 84443-TC; 84484-TC; 84550-TC; 85025-TC; 87081-TC; 87086-TC; 93307-TC; G0378; J1815; J3475; J3490; J7030

== ENCOUNTER 2020-03-10 16:21 | Emergency (ER) | payer OTHER ==
[~2020-03-10] VITALS: Ht 167.6 cm; Wt 55.3 kg
[~2020-03-10 16:21] MED LIST changes: +AMLO-61 PO; +ATOR10TA PO; +BICT1TAB PO; -DOLU10TA PO; -EMTR1TAB18 PO; +ESCI10TA PO; +METF-440 PO; +OMEP40CA13 PO; -SULF1TAB48 PO
[2020-03-10 16:46] VITALS: BP 162/96
[2020-03-10] MEDS ORDERED: LIDOCAINE 1%-EPI 1:100,000 20 ML VIAL ONE (17:09)
[2020-03-10] MEDS ORDERED: HYDROCODONE/APAP 5/325MG TABLET PO ONE (17:30)
[2020-03-10] MEDS ORDERED: HYDROCODONE/APAP 5/325MG TABLET ONE (17:38)
--- NOTE | 2020-03-10 18:05 | NUR ---
WOUND CARE PROVIDED BY EMT, KERVIN AND AREA WAS COVERED W/ DRESSING. Patient discharged to home in stable condition.Rx and Written and verbal after care instructions given. Patient verbalizes understanding of instruction. pt was instructed to come back to the ER [id number] for wound check
== END 2020-03-10 18:15 | disposition home or self-care (01) ==
LOC: ER 16:22
DX: L02.11 Cutaneous abscess of neck (principal); I10 Essential (primary) hypertension; E11.9 Type 2 diabetes mellitus without complications; Z98.890 Other specified postprocedural states; Z88.0 Allergy status to penicillin; Z60.2 Problems related to living alone; Z79.84 Long term (current) use of oral hypoglycemic drugs; Z79.899 Other long term (current) drug therapy
CPT/HCPCS: 10060; 99283; A6403; A6407; J3490

== ENCOUNTER 2021-05-10 13:39 | Inpatient (IN) | payer OTHER ==
[~2021-05-10] VITALS: Ht 167.6 cm; Wt 58.6 kg
[~2021-05-10 13:39] MED LIST changes: +AMLO-212 PO; -AMLO5TAB9 PO; +LISI40TA13 PO; -LISI40TA4 PO; -OMEP40CA13 PO; +OMEP40CA21 PO
--- NOTE | 2021-05-10 14:41 | NUR ---
BIBS FOR C/O R 5TH TOE PAIN 910 AND SWELLING X 2 DAYS. AFEBRILE HISTORIAN DRAMATIC ARTS. IN ROOM AIR AND DENIES SOB. RESPIRATION REGULAR AND UNLABORED. WILL CONTINUE TO MONITOR THE PATIENT.
--- NOTE | 2021-05-10 15:58 | NUR ---
MOVE SHEET SUBMITTED AND CALLED FOR MS BED.
[2021-05-10] MEDS ORDERED: TEST200V3 IM (16:01)
[2021-05-10] MEDS ORDERED: AMLO1CAP2 PO (16:01)
[2021-05-10] MEDS ORDERED: MIRT-90 PO (16:01)
[2021-05-10] MEDS ORDERED: TRAZ-182 PO (16:01)
[2021-05-10] MEDS ORDERED: INSU100V7 SQ (16:01)
[2021-05-10] MEDS ORDERED: SULF-10 PO (16:01)
[2021-05-10 16:42] LABS: BASOPHILS % (AUTO) 0.2 % (0.0-2.0); EOSINOPHILS % (AUTO) 1.3 % (0.0-6.0); HEMATOCRIT 39 % (39-51); HEMOGLOBIN 13.2 g/dL (13.5-17.5); LYMPHOCYTES # (AUTO) 0.3 K/uL (0.8-4.8); LYMPHOCYTES % (AUTO) 12.1 % (20.0-44.0); MEAN CORPUSCULAR HGB CONC 34 g/dl (31.0-36.0); MEAN CORPUSCULAR VOLUME 86 fL (80-96); MONOCYTES # (AUTO) 0.3 K/uL (0.1-1.30); MONOCYTES % (AUTO) 11.9 % (2.0-12.0); NEUTROPHILS % (AUTO) 74.5 % (43.0-81.0); PLATELET COUNT (AUTO) 239 K/uL (150-450); RED BLOOD CELL COUNT(AUTO) 4.53 MIL/uL (4.5-6.0); WHITE BLOOD COUNT (AUTO) 2.7 K/uL (4.3-11.0)
--- NOTE | 2021-05-10 16:44 | NUR ---
COVID ANTIGEN SWAB DONE AND SENT TO THE LAB
[2021-05-10] MEDS ORDERED: VANCOMYCIN 1 GM in IV D5W 250 ML IV ONE (17:00)
[2021-05-10] MEDS ORDERED: MEROPENEM 1,000 MG in IV NS 0.9% 100 ML IV ONE (17:00)
--- NOTE | 2021-05-10 17:02 | NUR ---
REQUESTED ORDERED ANTIBIOTICS FROM PHARM
[2021-05-10 17:12] LABS: ALBUMIN 3.2 g/dL (3.4-5.0); BILIRUBIN,DIRECT 0.1 mg/dL (0.0-0.2); BILIRUBIN,TOTAL 0.2 mg/dL (0.2-1.0); CREATININE 1.2 mg/dL (0.6-1.3); TOTAL PROTEIN, SERUM 7.7 g/dL (6.4-8.2)
[2021-05-10 17:17] LABS: CALCIUM, SERUM 8.7 mg/dL (8.5-10.1)
[2021-05-10 17:24] LABS: BAND % (MANUAL) 5 % (0.0-5.0); LYMPHOCYTES % (MANUAL) 13 % (16-48); MONOCYTES % (MANUAL) 12 % (0-11.0); NEUTROPHILS % (MANUAL) 70 (42-76)
[2021-05-10] MEDS ORDERED: MAGNESIUM HYDROXIDE 30 ML UDC PO PRN (18:30)
[2021-05-10] MEDS ORDERED: DEXTROSE 50%-WATER 50 ML DISP.SYRIN IV PRN (18:30)
[2021-05-10] MEDS ORDERED: Z GUARD REMEDY 2 OZ OINT TP PRN (18:30)
[2021-05-10] MEDS ORDERED: ONDANSETRON HCL/PF 4 MG/2 ML VIAL IVP PRN (18:30)
[2021-05-10] MEDS ORDERED: MAG HYDROX/AL HYDROX/SIMETH 30 ML UDC PO PRN (18:30)
[2021-05-10] MEDS ORDERED: ACETAMINOPHEN 325 MG TABLET PO PRN (18:30)
[2021-05-10] MEDS ORDERED: HYDROCODONE/APAP 5/325MG TABLET ONE (19:03)
[2021-05-10] MEDS: HYDROCODONE/APAP 5/325MG TABLET PO PRN (19:09)
--- NOTE | 2021-05-10 19:16 | NUR ---
WOUND SWAB OF R 5TH TOE DONE AND SENT TO THE LAB
--- NOTE | 2021-05-10 19:24 | NUR ---
REPORT GIVEN TO NURSE LOPEZ FOR RYAN
--- NOTE | 2021-05-10 19:59 | NUR ---
MS 311-2
[2021-05-10 20:00] VITALS: BP 157/88
--- NOTE | 2021-05-10 20:20 | NUR ---
REOPRT GIVEN TO KARYN
--- NOTE | 2021-05-10 20:35 | NUR ---
MS RN NOTE PT TRANSPORTED VIA GURNEY TO UNIT AT 2034. PT ADMITTED TO MED SURG FROM ER FOR DM FOOT ULCER. A/O X4. PT IS AMBULATORY WITH STEADY GAIT. PT STABLE ON ROOM AIR. NO SOB OR S/S OF RESPIRATORY DISTRESS. IV ACCESS RIGHT HAND 22 GAUGE, INTACT AND PATENT. PT ORIENTED TO STAFF, ROOM, AND UNIT. SAFETY PRECAUTIONS MAINTAINED. BED IN LOWEST LOCKED POSITION, HOB ELEVATED, SIDE RAILS UP X2, AND CALL LIGHT AND TABLE WITHIN REACH. WILL CONTINUE TO MONITOR.
[2021-05-10] MEDS ORDERED: MEROPENEM 500 MG in IV NS 0.9% 50 ML IV SCH (21:00)
[2021-05-10] MEDS: BLOOD SUGAR DIAGNOSTIC 1 EACH STRIP VI SCH (22:14)
[2021-05-10] MEDS: *INSULIN REGULAR(HUMULIN R)HUM 100 UNIT/ML VIAL SQ PRN (22:17)
[2021-05-11] MEDS: MEROPENEM 1 G in IV NS 0.9% 100 ML IV SCH ×3 (00:59→16:16)
--- NOTE | 2021-05-11 05:30 | NUR ---
RN NOTES PATIENT REFUSED MORNING BLOOD DRAW, PATIENT WANTS TO BE DONE AFTER BREAKFAST
[2021-05-11] MEDS: BLOOD SUGAR DIAGNOSTIC 1 EACH STRIP VI SCH ×4 (06:17→22:23)
[2021-05-11] MEDS: VANCOMYCIN 1 GM in IV D5W 250 ML IV SCH ×2 (06:26→17:02)
--- NOTE | 2021-05-11 06:31 | NUR ---
RN NOTE GAVE VANCO @ 250 ML/HR AT 0500. COMPUTER WAS DOWN.
[2021-05-11] MEDS: INSULIN REGULAR, HUMAN 100 UNIT/ML 3 ML VIAL SQ PRN ×2 (06:34→11:20)
--- NOTE | 2021-05-11 06:46 | NUR ---
MS RN CLOSING NOTE PT IN BED EYES CLOSED, EASILY AROUSABLE. A/O X4. PT STABLE ON ROOM AIR. NO SOB OR S/S OF RESPIRATORY DISTRESS. IV ACCESS RIGHT HAND 22 GAUGE, INTACT AND PATENT. ALL NEEDS MET AT THIS TIME. SAFETY PRECAUTIONS MAINTAINED AT ALL TIMES. BED IN LOWEST LOCKED POSITION, HOB ELEVATED, SIDE RAILS UP X2, AND CALL LIGHT AND TABLE WITHIN REACH. WILL ENDORSE TO ONCOMING NURSE FOR RYAN.
--- NOTE | 2021-05-11 07:33 | NUR ---
MS RN OPENING NOTE PT IS ASLEEP IN BED, EASY TO AROUSE. ALERT AND ORIENTED X 4. PT ON ROOM AIR, TOLERATING WELL. NO S/SX OF DISTRESS, NO SOB. BREATHING IS EVEN AND UNLABORED. IV ACCESS RHAND #[id number]. SAFETY MEASURES IN PLACE WITH BED LOCKED AT LOW POSITION, SIDE RAILS UP X 2. WILL CONTINUE TO MONITOR PATIENT THROUGHOUT SHIFT.
[2021-05-11 08:00] VITALS: BP 148/91
[2021-05-11] MEDS: PANTOPRAZOLE 40 MG TABLET.DR PO SCH (08:24)
[2021-05-11] MEDS: MORPHINE SULFATE INJ 2 MG/ML DISP.SYRIN IV PRN ×2 (08:59→15:10)
[2021-05-11] MEDS ORDERED: LIDOCAINE 1% INJ 50 ML MDV IJ ONE (12:30)
--- NOTE | 2021-05-11 13:00 | NUR ---
MS RN NOTE ASSISTED DR. JO WILLIS AT BEDSIDE FOR EXCISIONAL DEBRIDEMENT OF RIGHT 5TH TOE. WOUND CULTURE SENT TO LAB. PT TOLERATED PROCEDURE WELL.
[2021-05-11 15:17] LABS: BASOPHILS % (AUTO) 0.5 % (0.0-2.0); EOSINOPHILS % (AUTO) 1.6 % (0.0-6.0); HEMATOCRIT 39 % (39-51); HEMOGLOBIN 13.3 g/dL (13.5-17.5); LYMPHOCYTES # (AUTO) 0.4 K/uL (0.8-4.8); LYMPHOCYTES % (AUTO) 17.3 % (20.0-44.0); MEAN CORPUSCULAR HGB CONC 34 g/dl (31.0-36.0); MEAN CORPUSCULAR VOLUME 86 fL (80-96); MONOCYTES # (AUTO) 0.3 K/uL (0.1-1.30); MONOCYTES % (AUTO) 11.9 % (2.0-12.0); NEUTROPHILS # (AUTO) 1.7 K/uL (1.8-8.9); NEUTROPHILS % (AUTO) 68.7 % (43.0-81.0); PLATELET COUNT (AUTO) 243 K/uL (150-450); RED BLOOD CELL COUNT(AUTO) 4.54 MIL/uL (4.5-6.0); WHITE BLOOD COUNT (AUTO) 2.5 K/uL (4.3-11.0)
[2021-05-11 15:31] LABS: CALCIUM, SERUM 8.6 mg/dL (8.5-10.1); MAGNESIUM 1.9 mg/dL (1.8-2.4); POTASSIUM 4.1 mmol/L (3.5-5.1)
[2021-05-11 15:45] LABS: THYROID STIMULATING HORMONE 1.432 uIU/mL (0.358-3.74)
[2021-05-11 16:00] VITALS: BP 150/95
[2021-05-11 16:31] LABS: BAND % (MANUAL) 8 % (0.0-5.0); LYMPHOCYTES % (MANUAL) 17 % (16-48); MONOCYTES % (MANUAL) 13 % (0-11.0); NEUTROPHILS % (MANUAL) 62 (42-76)
[2021-05-11] MEDS: *INSULIN REGULAR(HUMULIN R)HUM 100 UNIT/ML VIAL SQ PRN ×2 (17:04→22:23)
--- NOTE | 2021-05-11 18:30 | NUR ---
MS RN CLOSING NOTES PT IS CURRENTLY DOING MRI OF RIGHT FOOT AT THIS TIME. ALL NEEDS WERE MET THROUGHOUT SHIFT. PT HAD NO SIGNIFICANT CHANGE IN CONDITION. SAFETY MEASURES MAINTAINED. ALL MEDS WERE GIVEN ORDERED PER MD AND SPECIALISTS. WILL ENDORSE CONTINUITY OF CARE TO ONCOMING [employer] MANAGER NURSE.
--- NOTE | 2021-05-11 19:00 | NUR ---
MS RN OPENING NOTE RECEIVED PT AWAKE IN BED. A/OX4. PT IS ON ROOM AIR. NO SOB NOTED. NO S/S RESPIRATORY DISTRESS. PT IS AMBULATORY. PT HAS NO C/O PAIN AT THIS TIME. IV ACCESS IN RIGHT HAND G# 22, PT C/O BURNING ON THE IV SITE. ASSESSED SITE, IT IS NON PATENT AND NOT FLUSHING. DISCONNECTED IV. THERE IS NO IV ACCESS AT THE MOMENT. SAFETY MEASURES MAINTAINED . BED IN LOWEST LOCKED POSITION, HOB ELEVATED, SIDE RAILS UP X2. CALL LIGHT AND TABLE WITHIN REACH. WILL CONTINUE WITH PLAN OF CARE.
[2021-05-11] MEDS ORDERED: GADOTERATE MEGLUMINE 5 MMOL/10 ML VIAL IV ONE (19:07)
[2021-05-11 20:00] VITALS: BP 133/84
[2021-05-11 22:00] VITALS: BP 133/84
[2021-05-12] MEDS: MEROPENEM 1 G in IV NS 0.9% 100 ML IV SCH ×3 (01:23→16:02)
[2021-05-12] MEDS: MORPHINE SULFATE INJ 2 MG/ML DISP.SYRIN IV PRN ×4 (01:24→19:58)
--- NOTE | 2021-05-12 02:19 | NUR ---
PT C/O ACHING PAIN OF 9/10 ON THE RIGHT FOOT, PER PT REQUEST MORPHINE 2MG/1ML IV Q4HR PRN ADMINISTERED AT THIS TIME PER ORDER. WILL CONTINUE TO MONITOR
--- NOTE | 2021-05-12 04:00 | NUR ---
RN NOTE PT REFUSED THE BLOOD DRAW FROM THE LAB FOR THE VANCO TROUGH LEVEL. EXPLAINED THE RISKS AND BENEFITS BUT PT STATED " I REFUSE NOW", CHARGE NURSE ABNER AND AFTER HRS [facility] MADE AWARE. WILL CONTINUE WITH PLAN OF CARE.
[2021-05-12] MEDS: VANCOMYCIN 1 GM in IV D5W 250 ML IV SCH ×2 (05:00→14:47)
--- NOTE | 2021-05-12 05:00 | NUR ---
PT REFUSED AM LABS. EXPLAINED THE RISKS, PT STILL REFUSED. CHARGE NURSE, ABNER MADE AWARE. WILL CONTINUE WITH PLAN OF CARE.
[2021-05-12] MEDS: BLOOD SUGAR DIAGNOSTIC 1 EACH STRIP VI SCH ×4 (05:50→21:25)
[2021-05-12] MEDS: INSULIN REGULAR, HUMAN 100 UNIT/ML 3 ML VIAL SQ PRN ×3 (05:50→17:17)
--- NOTE | 2021-05-12 06:29 | NUR ---
MS RN CLOSING NOTE PT RESTING COMFORTABLY IN BED AT THIS TIME, EASY TO AROUSE. PT REMAINED STABLE THROUGHOUT SHIFT. ALL NEEDS, MEDICATIONS, AND CARE ADMINISTERED ANTICIPATED PER ORDER; PAIN CONTROL ADMINISTERED PER ORDER. SAFETY PRECAUTIONS IN PLACE AND MAINTAINED AT ALL TIMES. BED IN LOWEST LOCKED POSITION, HOB ELEVATED, SIDE RAILS UP X2. CALL LIGHT AND TABLE WITHIN REACH. WILL ENDORSE TO MORNING SHIFT NURSE FOR RYAN.
--- NOTE | 2021-05-12 07:14 | NUR ---
MS RN OPENING NOTE RECEIVED PATIENT IN BED, EASY TO AROUSE. ALERT AND ORIENTED X 4. PT ON ROOM AIR, TOLERATING WELL. NO S/SX OF DISTRESS, NO SOB. BREATHING IS EVEN AND UNLABORED. IV ACCESS RHAND #22G. SAFETY MEASURES IN PLACE WITH BED LOCKED AT LOW POSITION, SIDE RAILS UP X 2. WILL CONTINUE TO MONITOR PATIENT
[2021-05-12] MEDS: PANTOPRAZOLE 40 MG TABLET.DR PO SCH (08:10)
[2021-05-12] MEDS: SULFAMETH/TRIMETH 800/160 MG 1 UDTAB TABLET PO SCH (08:10)
[2021-05-12 08:24] VITALS: BP 170/100
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
[2021-05-12 16:12] VITALS: BP 138/96
--- NOTE | 2021-05-12 18:24 | NUR ---
MS RN CLOSING NOTE PT IN BED RESTING, EASILY AROUSABLE. A/O X4. PT STABLE ON ROOM AIR. NO SOB OR S/S OF RESPIRATORY DISTRESS. IV ACCESS RIGHT HAND 22 GAUGE, INTACT AND PATENT. PATIENT GIVEN PAIN MEDICATION NEEDED THROUGHOUT SHIFT, VITALS REMAINED WNL, WOUND CARE PERFORMED DURING SHIFT. ALL NEEDS MET AT THIS TIME. SAFETY PRECAUTIONS MAINTAINED AT ALL TIMES. BED IN LOWEST LOCKED POSITION, HOB ELEVATED, SIDE RAILS UP X2, AND CALL LIGHT AND TABLE WITHIN REACH. WILL ENDORSE TO ONCOMING SHIFT
--- NOTE | 2021-05-12 19:10 | NUR ---
CONTINUITY OF CARE Patient in bed, awake. Right foot dressing in place. Report pain in his right foot, pain scale, medication indication and possible side effect reviewed to patient, verbalized understanding. No other c/o. Left hand IV peripheral line patent and intact. Will cont to provide care. Call light within reach.
--- NOTE | 2021-05-12 20:02 | NUR ---
RIGHT FOOT PAIN 8/10 Given PRN Morphine, will reassess pain level.
[2021-05-12 20:04] VITALS: BP 175/90
--- NOTE | 2021-05-12 21:05 | NUR ---
BP ELEVATED SBP 175/ DBP 90 Patient denies headache. Per patient he is taking HTN medication at home. Notified ANIMAL LABORATORY TECHNICIAN Dena, order place.
[2021-05-12] MEDS: CLONIDINE HCL 0.1 MG TABLET PO PRN (21:24)
[2021-05-12] MEDS: *INSULIN REGULAR(HUMULIN R)HUM 100 UNIT/ML VIAL SQ PRN (21:29)
--- NOTE | 2021-05-12 21:29 | NUR ---
ACCU CHECK BS 248mg/dl Insulin regular 4 units given per sliding scale co-signed by BINTA Harrington.
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
[2021-05-13] MEDS: MORPHINE SULFATE INJ 2 MG/ML DISP.SYRIN IV PRN ×3 (00:30→19:55)
[2021-05-13] MEDS: MEROPENEM 1 G in IV NS 0.9% 100 ML IV SCH ×3 (00:35→18:53)
--- NOTE | 2021-05-13 00:38 | NUR ---
RIGHT FOOT PAIN 8/10 Given PRN Morphine, will reassess pain level. Fall precaution maintained.
[2021-05-13] MEDS: VANCOMYCIN 1 GM in IV D5W 250 ML IV SCH ×2 (03:15→17:39)
--- NOTE | 2021-05-13 03:28 | NUR ---
VANCOMYCIN THROUGH PENDING Patient refusing lab drawn including vancomycin through, education given, importance, risk and benefits of treatment orders, patient strongly refused blood draw. Missed Vancomycin through yesterday 05/12/11, now due for 2nd dose Vancomycin 1gm. Notified CIRCUIT JUDGE Dena, nica to give 2nd dose. Will endorse to oncoming RN. Next vancomycin through today at 1400.
[2021-05-13 06:14] VITALS: BP 124/78
--- NOTE | 2021-05-13 06:14 | NUR ---
END OF SHIFT REPORT Patient is A/O x4. Right foot dressing in place. BP improved after Clonidine. Right foot pain controlled with Morphine. On IV Abx. Afebrile. Patient still strongly refused AM lab. declined education. Will endorse to oncoming RN.
[2021-05-13 06:21] VITALS: BP 124/78
[2021-05-13] MEDS: INSULIN REGULAR, HUMAN 100 UNIT/ML 3 ML VIAL SQ PRN ×3 (07:00→17:48)
--- NOTE | 2021-05-13 07:02 | NUR ---
ACCU CHECK BS 380mg/dl Insulin regular 15 units given per sliding scale co-signed by BINTA Harrington.
--- NOTE | 2021-05-13 07:30 | NUR ---
MS RN OPENING NOTE PATIENT IN BED AWAKE, A&OX4. NO S/S OF RESPIRATORY DISTRESS OR DISCOMFORT AT THIS TIME. RIGHT FOOT DRESSING CLEAN AND INTACT. LEFT HAND #22G IN PLACE & PATENT. SAFETY MEASURES IN PLACE: BED LOCKED IN LOWEST POSITION WITH CALL LIGHT WITHIN REACH. WILL CONTINUE TO MONITOR PT.
[2021-05-13 08:00] VITALS: BP 148/84
[2021-05-13] MEDS: SULFAMETH/TRIMETH 800/160 MG 1 UDTAB TABLET PO SCH (08:54)
[2021-05-13] MEDS: PANTOPRAZOLE 40 MG TABLET.DR PO SCH (09:14)
[2021-05-13] MEDS: BLOOD SUGAR DIAGNOSTIC 1 EACH STRIP VI SCH ×4 (09:44→21:25)
[2021-05-13 16:00] VITALS: BP 132/84
--- NOTE | 2021-05-13 16:20 | NUR ---
RN NOTE PT REFUSED 1400 VANCO TROUGH LAB DRAW. EXPLAINED RISKS, BENEFITS, AND EDUCATED PT REGARDING IMPORTANCE OF THIS LAB DRAW (TO DETERMINE THE DOSING OF HIS ANTIBIOTICS). PT STILL REFUSED BLOOD DRAW X3. KADIE-PHARMACIST AND HOSPITALIST WERE MADE AWARE OF THE SITUATION. WILL MONITOR PT CLOSELY FOR ANY CHANGES.
--- NOTE | 2021-05-13 17:30 | NUR ---
MS RN NOTE PER , OKAY TO GIVE VANCO DOSE TODAY.
--- NOTE | 2021-05-13 18:40 | NUR ---
MS RN CLOSING NOTE PT IS AWAKE RESTING IN BED. NO S/S OF RESPIRATORY DISTRESS ON ROOM AIR. PT REMAINED STABLE THROUGHOUT SHIFT WITH V/S WNL. SAFETY PRECAUTIONS IN PLACE: BED IS LOCKED AND IN LOWEST POSITION, SIDE RAILS UP X2, CALL LIGHT WITHIN REACH. WILL ENDORSE TO ONCOMING SHIFT FOR RYAN.
[2021-05-13 19:24] LABS: CALCIUM, SERUM 8.2 mg/dL (8.5-10.1); CREATININE 1.1 mg/dL (0.6-1.3); MAGNESIUM 1.9 mg/dL (1.8-2.4); PHOSPHORUS 3.4 mg/dL (2.5-4.9); POTASSIUM 4.3 mmol/L (3.5-5.1)
--- NOTE | 2021-05-13 19:25 | NUR ---
MS/RN OPENING NOTES PT AWAKE IN BED, WATCHING TV. A/OX4. RESPIRATIONS EVEN/UNLABORED. IV SITE: L-HAND #22G INTACT/PATENT, FLUSHES WELL. R-FT DRESSING C/D/I. PT IN NO ACUTE DISTRESS. SAFETY MEASURES IN PLACE, BED IN LOWEST LOCKED POSITION, S/R UPX2, CALL LIGHT WITHIN REACH. WILL CONT TO MONITOR.
[2021-05-13 19:53] LABS: BASOPHILS % (AUTO) 0.3 % (0.0-2.0); EOSINOPHILS % (AUTO) 0.6 % (0.0-6.0); HEMATOCRIT 40 % (39-51); HEMOGLOBIN 13.5 g/dL (13.5-17.5); LYMPHOCYTES # (AUTO) 0.4 K/uL (0.8-4.8); LYMPHOCYTES % (AUTO) 14.3 % (20.0-44.0); MEAN CORPUSCULAR HGB CONC 34 g/dl (31.0-36.0); MEAN CORPUSCULAR VOLUME 87 fL (80-96); MONOCYTES # (AUTO) 0.3 K/uL (0.1-1.30); MONOCYTES % (AUTO) 9.1 % (2.0-12.0); NEUTROPHILS # (AUTO) 2.2 K/uL (1.8-8.9); NEUTROPHILS % (AUTO) 75.7 % (43.0-81.0); PLATELET COUNT (AUTO) 229 K/uL (150-450); RED BLOOD CELL COUNT(AUTO) 4.54 MIL/uL (4.5-6.0); WHITE BLOOD COUNT (AUTO) 2.9 K/uL (4.3-11.0)
[2021-05-13 20:00] VITALS: BP 141/85
[2021-05-13 20:30] LABS: BAND % (MANUAL) 7 % (0.0-5.0); LYMPHOCYTES % (MANUAL) 13 % (16-48); MONOCYTES % (MANUAL) 6 % (0-11.0); NEUTROPHILS % (MANUAL) 74 (42-76)
[2021-05-13] MEDS: *INSULIN REGULAR(HUMULIN R)HUM 100 UNIT/ML VIAL SQ PRN (21:26)
--- NOTE | 2021-05-13 21:45 | NUR ---
RN NOTE PT'S VANCO TROUGH RESULT SHOWING 48, HOWEVER, ENDORSED BY AM NURSE THAT THIS TROUGH WAS DRAWN ABOUT 1HR AFTER THE VANCO WAS ADMINISTERED, BECAUSE THE PT REFUSED THE FIRST ATTEMPT OF BLOOD DRAW BY THE LAB, AND WHEN THEY CAME BACK, THE VANCO WAS ALREADY GIVEN. PHARMACIST AWARE AND SUGGESTED TO REDRAW BEFORE THE 0300 DOSE. SPOKE TO PT ABOUT IT AND HE REFUSES, STATES CAN HAVE THEM DRAW LATER IN THE DAY BECAUSE HE WANTS TO "REST" HIS VEINS. BALLISTICS EXPERT FORENSIC MD/MEDICAL STAFF CREDENTIALING COORDINATOR PRESTON AWAN MADE AWARE WITH ORDERS: OK TO HANG 0300 VANCO, RE-DRAW TROUGH @1400 TOMORROW. PT INFORMED AND HE AGREED FOR BLOOD DRAW TOMORROW PM.
[2021-05-14] MEDS: MEROPENEM 1 G in IV NS 0.9% 100 ML IV SCH ×4 (00:01→17:50)
[2021-05-14] MEDS: MORPHINE SULFATE INJ 2 MG/ML DISP.SYRIN IV PRN ×4 (01:58→23:02)
[2021-05-14] MEDS: VANCOMYCIN 1 GM in IV D5W 250 ML IV SCH (02:02)
[2021-05-14] MEDS: BLOOD SUGAR DIAGNOSTIC 1 EACH STRIP VI SCH ×4 (06:14→21:50)
[2021-05-14] MEDS: INSULIN REGULAR, HUMAN 100 UNIT/ML 3 ML VIAL SQ PRN ×3 (06:16→17:11)
--- NOTE | 2021-05-14 06:48 | NUR ---
MS/RN CLOSING NOTES PT RESTING IN BED, EASILY AROUSABLE TO STIMULI. NO SOB. IV SITE: L-HAND #22G INTACT/PATENT, FLUSHES WELL. R-FOOT DRESSING C/D/I. NO ACUTE EVENTS DURING THE NIGHT. SAFETY MEASURES MAINTAINED. ALL NEEDS ATTENDED TO.
--- NOTE | 2021-05-14 07:21 | NUR ---
RN OPENING NOTE- PT ASLEEP IN BED, EASILY AWAKENED. REQUESTS TO BE ALLOWED TO SLEEP AND NOT BE DISTURBED. A/OX4. RESPIRATIONS EVEN/UNLABORED. IV SITE: L-HAND #22G INTACT. R-FT DRESSING C/D/I. PT IN NO ACUTE DISTRESS. SAFETY MEASURES IN PLACE, BED IN LOWEST LOCKED POSITION, S/R UPX2, CALL LIGHT WITHIN REACH. WILL CONT TO MONITOR.
[2021-05-14] MEDS: PANTOPRAZOLE 40 MG TABLET.DR PO SCH (07:46)
[2021-05-14] MEDS: HYDROCODONE/APAP 5/325MG TABLET PO PRN (07:56)
[2021-05-14 08:00] VITALS: BP 150/81
--- NOTE | 2021-05-14 09:27 | NUR ---
RN NOTE- IV HEPLOCK COMPROMISED. PT DOESN'T WANT TO HAVE ANOTHER PIV SITE. SINCE PT NEEDS ABX THERAPY, PICC REQUESTED TO . DR FAUSTIN ORDERED PICC. IV ABX NOT ADMINISTERED AT THIS TIME. NO IV SITE
[2021-05-14] MEDS: DAPSONE 25 MG TABLET PO SCH (09:34)
[2021-05-14 16:00] VITALS: BP 150/91
--- NOTE | 2021-05-14 17:13 | NUR ---
RN NOTE - PICC LINE RN ON WAY TO INSERT PICC. IV HELD DUE TO NO ACCESS
--- NOTE | 2021-05-14 18:36 | NUR ---
RN CLOSING NOTE- PICC LINE INSERTED DEIDRE. INFUSING MERREM ABX IVPB. PT COMFORTABLE W IVP MORPHINE. DRESSING CHANGE COMPLETED TO RT FOOT. PO INTAKE GOOD. NEEDS MET. SIDE RAILS UP, BED LOCKED. MONITOR ASSIST
--- NOTE | 2021-05-14 19:30 | NUR ---
MS RN OPENING NOTE RECEIVED PT AWAKE IN BED. A/O X4. PT STABLE ON ROOM AIR. NO SOB OR S/S OF RESPIRATORY DISTRESS. IV ACCESS DEIDRE PICC LINE, INTACT AND PATENT. R FOOT DRESSING C/D/I. SAFETY PRECAUTIONS IN PLACE. BED IN LOWEST LOCKED POSITION, HOB ELEVATED, SIDE RAILS UP X2, AND CALL LIGHT AND TABLE WITHIN REACH. WILL CONTINUE TO MONITOR.
[2021-05-14 20:00] VITALS: BP 159/99
[2021-05-14 21:31] LABS: BASOPHILS % (AUTO) 0.4 % (0.0-2.0); EOSINOPHILS % (AUTO) 0.6 % (0.0-6.0); HEMATOCRIT 37 % (39-51); HEMOGLOBIN 12.5 g/dL (13.5-17.5); LYMPHOCYTES # (AUTO) 0.5 K/uL (0.8-4.8); LYMPHOCYTES % (AUTO) 15.9 % (20.0-44.0); MEAN CORPUSCULAR HGB CONC 34 g/dl (31.0-36.0); MEAN CORPUSCULAR VOLUME 86 fL (80-96); MONOCYTES # (AUTO) 0.3 K/uL (0.1-1.30); MONOCYTES % (AUTO) 11.3 % (2.0-12.0); NEUTROPHILS # (AUTO) 2.1 K/uL (1.8-8.9); NEUTROPHILS % (AUTO) 71.8 % (43.0-81.0); PLATELET COUNT (AUTO) 213 K/uL (150-450); RED BLOOD CELL COUNT(AUTO) 4.34 MIL/uL (4.5-6.0)
[2021-05-14 21:49] LABS: MAGNESIUM 2.1 mg/dL (1.8-2.4); PHOSPHORUS 2.6 mg/dL (2.5-4.9); POTASSIUM 4.1 mmol/L (3.5-5.1)
[2021-05-14] MEDS: *INSULIN REGULAR(HUMULIN R)HUM 100 UNIT/ML VIAL SQ PRN (21:56)
[2021-05-14 22:03] LABS: BAND % (MANUAL) 5 % (0.0-5.0); LYMPHOCYTES % (MANUAL) 22 % (16-48); MONOCYTES % (MANUAL) 11 % (0-11.0); NEUTROPHILS % (MANUAL) 62 (42-76)
[2021-05-15] MEDS: MEROPENEM 1 G in IV NS 0.9% 100 ML IV SCH ×3 (01:29→16:32)
--- NOTE | 2021-05-15 06:22 | NUR ---
MS RN CLOSING NOTE PT AWAKE IN BED. A/O X4. PT STABLE ON ROOM AIR. NO SOB OR S/S OF RESPIRATORY DISTRESS. IV ACCESS DEIDRE PICC LINE, INTACT AND PATENT. R FOOT DRESSING C/D/I. ALL NEEDS MET AT THIS TIME. SAFETY PRECAUTIONS IN PLACE AT ALL TIMES. BED IN LOWEST LOCKED POSITION, HOB ELEVATED, SIDE RAILS UP X2, AND CALL LIGHT AND TABLE WITHIN REACH. WILL ENDORSE TO ONCOMING NURSE FOR RYAN.
[2021-05-15] MEDS: BLOOD SUGAR DIAGNOSTIC 1 EACH STRIP VI SCH ×4 (06:32→22:05)
[2021-05-15] MEDS: INSULIN REGULAR, HUMAN 100 UNIT/ML 3 ML VIAL SQ PRN ×3 (06:33→17:39)
--- NOTE | 2021-05-15 07:30 | NUR ---
PT RECEIVED RESTING COMFORTABLY IN BED. NO S/S OR C/O PAIN OR DISTRESS NOTED. SIDE RAILS UP X2, CALL LIGHT LEFT WITHIN REACH. WILL CONTINUE PLAN OF CARE
[2021-05-15 08:00] VITALS: BP 190/100
[2021-05-15] MEDS: MORPHINE SULFATE INJ 2 MG/ML DISP.SYRIN IV PRN ×2 (08:37→21:51)
[2021-05-15] MEDS: PANTOPRAZOLE 40 MG TABLET.DR PO SCH (08:38)
[2021-05-15] MEDS: DAPSONE 25 MG TABLET PO SCH (08:38)
[2021-05-15 12:00] LABS: CALCIUM, SERUM 8.2 mg/dL (8.5-10.1); MAGNESIUM 2.1 mg/dL (1.8-2.4); PHOSPHORUS 1.9 mg/dL (2.5-4.9); POTASSIUM 3.8 mmol/L (3.5-5.1)
[2021-05-15 12:38] LABS: BASOPHILS % (AUTO) 0.4 % (0.0-2.0); EOSINOPHILS % (AUTO) 0.6 % (0.0-6.0); HEMATOCRIT 37 % (39-51); HEMOGLOBIN 12.7 g/dL (13.5-17.5); LYMPHOCYTES # (AUTO) 0.5 K/uL (0.8-4.8); LYMPHOCYTES % (AUTO) 15.6 % (20.0-44.0); MEAN CORPUSCULAR HGB CONC 34 g/dl (31.0-36.0); MEAN CORPUSCULAR VOLUME 86 fL (80-96); MONOCYTES # (AUTO) 0.3 K/uL (0.1-1.30); NEUTROPHILS # (AUTO) 2.2 K/uL (1.8-8.9); NEUTROPHILS % (AUTO) 72.4 % (43.0-81.0); PLATELET COUNT (AUTO) 209 K/uL (150-450); RED BLOOD CELL COUNT(AUTO) 4.34 MIL/uL (4.5-6.0)
[2021-05-15 15:01] LABS: EOSINOPHILS % (MANUAL) 1 % (0-4); LYMPHOCYTES % (MANUAL) 11 % (16-48); MONOCYTES % (MANUAL) 12 % (0-11.0); NEUTROPHILS % (MANUAL) 76 (42-76)
[2021-05-15 16:00] VITALS: BP 165/93
[2021-05-15] MEDS ORDERED: K PHOS NEUTRAL 250 MG TABLET PO ONE (16:00)
--- NOTE | 2021-05-15 19:42 | NUR ---
CHANGE OF SHIFT REPORT PATIENT RESTING COMFORTABLY IN BED. NO S/S OR C/O PAIN OR DISTRESS NOTED. SIDE RAILS UP X2, CALL LIGHT LEFT WITHIN REACH. PT KEPT CLEAN, DRY, AND COMFORTABLE. NO SIGNIFICANT CHANGES SINCE PREVIOUS SHIFT. REPORT GIVEN TO JANICE JUDD.
[2021-05-15 20:00] VITALS: BP 168/92
[2021-05-15] MEDS: *INSULIN REGULAR(HUMULIN R)HUM 100 UNIT/ML VIAL SQ PRN (22:10)
[2021-05-16] MEDS: MEROPENEM 1 G in IV NS 0.9% 100 ML IV SCH ×3 (00:17→16:41)
[2021-05-16] MEDS: MORPHINE SULFATE INJ 2 MG/ML DISP.SYRIN IV PRN ×2 (06:19→16:58)
[2021-05-16 06:45] LABS: BASOPHILS % (AUTO) 0.5 % (0.0-2.0); EOSINOPHILS % (AUTO) 1.1 % (0.0-6.0); HEMATOCRIT 36 % (39-51); HEMOGLOBIN 12.5 g/dL (13.5-17.5); LYMPHOCYTES # (AUTO) 0.4 K/uL (0.8-4.8); LYMPHOCYTES % (AUTO) 16.1 % (20.0-44.0); MEAN CORPUSCULAR HGB CONC 34 g/dl (31.0-36.0); MEAN CORPUSCULAR VOLUME 88 fL (80-96); MONOCYTES # (AUTO) 0.3 K/uL (0.1-1.30); MONOCYTES % (AUTO) 11.8 % (2.0-12.0); NEUTROPHILS # (AUTO) 1.7 K/uL (1.8-8.9); NEUTROPHILS % (AUTO) 70.5 % (43.0-81.0); PLATELET COUNT (AUTO) 167 K/uL (150-450); RED BLOOD CELL COUNT(AUTO) 4.15 MIL/uL (4.5-6.0); WHITE BLOOD COUNT (AUTO) 2.5 K/uL (4.3-11.0)
[2021-05-16] MEDS: INSULIN REGULAR, HUMAN 100 UNIT/ML 3 ML VIAL SQ PRN ×3 (07:08→16:42)
--- NOTE | 2021-05-16 07:35 | NUR ---
RN OPENING NOTE RECEIVED PATIENT IN BED. A/O X4. ON ROOM AIR, TOLERATING WELL. NO SOB NOTED. IN NO APPARENT DISTRESS. IV ACCESS ON DEIDRE PICC LINE, INTACT AND PATENT. SAFETY MEASURES MAINTAINED. BED IN LOWEST POSITION, BRAKES LOCKED. SIDE RAILS UP X2. CALL LIGHT WITHIN REACH. WILL CONTINUE PLAN OF CARE.
[2021-05-16] MEDS: BLOOD SUGAR DIAGNOSTIC 1 EACH STRIP VI SCH ×4 (07:57→22:40)
[2021-05-16 08:00] VITALS: BP 193/111
[2021-05-16] MEDS: DAPSONE 25 MG TABLET PO SCH (08:11)
[2021-05-16] MEDS: PANTOPRAZOLE 40 MG TABLET.DR PO SCH (08:11)
[2021-05-16 08:33] LABS: ALBUMIN 2.8 g/dL (3.4-5.0); BILIRUBIN,TOTAL 0.2 mg/dL (0.2-1.0); CREATININE 0.9 mg/dL (0.6-1.3); PHOSPHORUS 3.2 mg/dL (2.5-4.9); POTASSIUM 4.2 mmol/L (3.5-5.1); TOTAL PROTEIN, SERUM 7.2 g/dL (6.4-8.2)
[2021-05-16] MEDS ORDERED: hydrALAZINE HCL IV 20 MG VIAL IV PRN (09:00)
[2021-05-16] MEDS: LISINOPRIL (10MG) 10 MG TABLET PO SCH (09:22)
[2021-05-16] MEDS: AMLODIPINE BESYLATE 5 MG TABLET PO SCH (09:22)
[2021-05-16] MEDS: INSULIN GLARGINE, 100 UNIT/ML CARTRIDGE SQ SCH ×2 (09:23→16:43)
[2021-05-16 10:39] LABS: BAND % (MANUAL) 2 % (0.0-5.0); EOSINOPHILS % (MANUAL) 2 % (0-4); LYMPHOCYTES % (MANUAL) 18 % (16-48); METAMYELOCYTES % 1 % (0-0); MONOCYTES % (MANUAL) 12 % (0-11.0); MYELOCYTES % 1 % (0-0); NEUTROPHILS % (MANUAL) 64 (42-76)
[2021-05-16 16:00] VITALS: BP_SYST 136; BP_SYST 142; BP_DIAS 70; BP_DIAS 89
--- NOTE | 2021-05-16 18:43 | NUR ---
RN CLOSING NOTE PATIENT RESTING IN BED. A/O X4. ON ROOM AIR, TOLERATING WELL. NO SOB NOTED. IN NO APPARENT DISTRESS. IV ACCESS ON DEIDRE PICC LINE, INTACT AND PATENT. ALL NEEDS HAVE BEEN MET AND ATTENDED. DUE MEDS GIVEN ORDERED. CONSENT WAS SIGNED FOR SATURDAY'S PROCEDURE, RIGHT FIFTH TOE AMPUTATION. SAFETY MEASURES MAINTAINED. BED IN LOWEST POSITION, BRAKES LOCKED. SIDE RAILS UP X2. KEPT CALL LIGHT WITHIN REACH. WILL ENDORSE CONTINUITY OF CARE TO INCOMING SHIFT.
--- NOTE | 2021-05-16 19:20 | NUR ---
MS RN OPENING NOTES: RECEIVED PATIENT IN BED, AWAKE, A/O X4. NO S/S OF DISTRESS NOTED. NO COMPLAIN OF PAIN. RIGHT FOOT DRESSING CLEAN,DRY AND INTACT. CALL LIGHT WITHIN REACH. BED IN LOWEST AND LOCKED POSITION. AMBULATORY. PICKED UP THRUSH FROM THE FLOOR INSIDE THE PT'S ROOM, REMINDED PT NOT TO LEAVE THRUSH ON THE FLOOR FOR SAFETY ISSUES, PATIENT VERBALIZED UNDERSTANDING.
[2021-05-16 20:00] VITALS: BP 157/76
[2021-05-16] MEDS: *INSULIN REGULAR(HUMULIN R)HUM 100 UNIT/ML VIAL SQ PRN (22:45)
[2021-05-17] MEDS: MEROPENEM 1 G in IV NS 0.9% 100 ML IV SCH ×3 (01:49→16:29)
[2021-05-17] MEDS: INSULIN REGULAR, HUMAN 100 UNIT/ML 3 ML VIAL SQ PRN ×3 (06:35→16:56)
[2021-05-17] MEDS: MORPHINE SULFATE INJ 2 MG/ML DISP.SYRIN IV PRN ×3 (06:38→16:54)
--- NOTE | 2021-05-17 07:15 | NUR ---
MS RN OPENING NOTES RECEIVED PATIENT IN BED, AWAKE AND VERBALLY RESPONSIVE, A/O X4, ABLE TO MAKE NEEDS KNOWN. NO S/S OF DISTRESS NOTED. NO COMPLAIN OF PAIN. RIGHT FOOT DRESSING CLEAN, DRY AND INTACT. PICC LINE INTACT AND PATENT. SAFETY MEASURES IN PLACE: CALL LIGHT WITHIN REACH. BED IN LOWEST AND LOCKED POSITION. AMBULATORY W/ STEADY GAIT W/ STAFF ASSISTANCE. WILL CONTINUE TO MONITOR.
[2021-05-17 08:00] VITALS: BP 166/97
[2021-05-17] MEDS: BLOOD SUGAR DIAGNOSTIC 1 EACH STRIP VI SCH ×4 (08:23→22:21)
[2021-05-17] MEDS: PANTOPRAZOLE 40 MG TABLET.DR PO SCH (08:24)
[2021-05-17] MEDS: DAPSONE 25 MG TABLET PO SCH (08:24)
[2021-05-17] MEDS: AMLODIPINE BESYLATE 5 MG TABLET PO SCH (08:24)
[2021-05-17] MEDS: LISINOPRIL (10MG) 10 MG TABLET PO SCH ×2 (08:24→22:01)
[2021-05-17] MEDS: INSULIN GLARGINE, 100 UNIT/ML CARTRIDGE SQ SCH ×2 (08:25→22:20)
[2021-05-17] MEDS: HYDROCODONE/APAP 5/325MG TABLET PO PRN (08:45)
--- NOTE | 2021-05-17 10:00 | NUR ---
RN NOTES PATIENT SEEN BY DR. TUCKER AND MADE AWARE OF PLAN OF CARE. OK FOR PATIENT TO SHOWER PER MD.
[2021-05-17 10:13] LABS: BASOPHILS % (AUTO) 0.3 % (0.0-2.0); EOSINOPHILS % (AUTO) 0.8 % (0.0-6.0); HEMATOCRIT 37 % (39-51); HEMOGLOBIN 12.5 g/dL (13.5-17.5); LYMPHOCYTES # (AUTO) 0.4 K/uL (0.8-4.8); LYMPHOCYTES % (AUTO) 18.2 % (20.0-44.0); MEAN CORPUSCULAR HGB CONC 34 g/dl (31.0-36.0); MEAN CORPUSCULAR VOLUME 87 fL (80-96); MONOCYTES # (AUTO) 0.3 K/uL (0.1-1.30); MONOCYTES % (AUTO) 12.3 % (2.0-12.0); NEUTROPHILS # (AUTO) 1.6 K/uL (1.8-8.9); NEUTROPHILS % (AUTO) 68.4 % (43.0-81.0); PLATELET COUNT (AUTO) 170 K/uL (150-450); RED BLOOD CELL COUNT(AUTO) 4.27 MIL/uL (4.5-6.0); WHITE BLOOD COUNT (AUTO) 2.4 K/uL (4.3-11.0)
[2021-05-17 11:24] LABS: CALCIUM, SERUM 8.3 mg/dL (8.5-10.1); CREATININE 1.1 mg/dL (0.6-1.3); POTASSIUM 4.2 mmol/L (3.5-5.1)
[2021-05-17 11:33] LABS: ALBUMIN 2.9 g/dL (3.4-5.0); BILIRUBIN,TOTAL 0.2 mg/dL (0.2-1.0); TOTAL PROTEIN, SERUM 7.1 g/dL (6.4-8.2)
[2021-05-17 16:00] VITALS: BP 184/104
[2021-05-17] MEDS: GLUCERNA SHAKE 237 ML CAN PO SCH (16:29)
[2021-05-17 17:27] LABS: BAND % (MANUAL) 4 % (0.0-5.0); LYMPHOCYTES % (MANUAL) 20 % (16-48); MONOCYTES % (MANUAL) 12 % (0-11.0); NEUTROPHILS % (MANUAL) 64 (42-76)
--- NOTE | 2021-05-17 18:46 | NUR ---
RN NOTES PATIENT RESTING IN BED, AWAKE AND VERBALLY RESPONSIVE. A/O X4, ABLE TO MAKE NEEDS KNOWN. BREATHING EVEN AND UNLABORED, CONTINUES ON ROOM AIR, NOT IN ACUTE DISTRESS. IV ATB ADMINISTERED INDICATED; DUE MEDS GIVEN TODAY. PICC LINE INTACT AND PATENT. PAIN MEDS ADMINISTERED FOR PAIN MGT, NO COMPLAINT OF PAIN AT THIS TIME. SAFETY MEASURES MAINTAINED. WILL ENDORSE TO CASTING PLUG ASSEMBLER RN FOR RYAN.
--- NOTE | 2021-05-17 19:20 | NUR ---
MS RN OPENING NOTES: RECEIVED PATIENT IN BED, AWAKE, A/O X4. NO S/S OF DISTRESS NOTED. NO COMPLAIN OF PAIN. CALL LIGHT WITHIN REACH. BED IN LOWEST AND LOCKED POSITION. NPO POST MN, PATIENT AWARE.
[2021-05-17 20:00] VITALS: BP 150/98
[2021-05-17] MEDS: *INSULIN REGULAR(HUMULIN R)HUM 100 UNIT/ML VIAL SQ PRN (22:16)
[2021-05-18] MEDS: MEROPENEM 1 G in IV NS 0.9% 100 ML IV SCH ×3 (01:20→16:40)
[2021-05-18] MEDS: MORPHINE SULFATE INJ 2 MG/ML DISP.SYRIN IV PRN ×3 (05:50→21:44)
[2021-05-18] MEDS: BLOOD SUGAR DIAGNOSTIC 1 EACH STRIP VI SCH ×4 (06:47→22:26)
--- NOTE | 2021-05-18 06:47 | NUR ---
MS RN CLOSING NOTES: PATIENT RESTING IN BED, NO S/S OF DISTRESS NOTED. CALL LIGHT WITHIN REACH. BED IN LOWEST AND LOCKED POSITION. BLOOD SUGAR THHPUBI=052, NO INSULIN GIVEN, PATIENT IS NPO FOR SURGERY TODAY AT NOON.
[2021-05-18 07:07] LABS: BASOPHILS % (AUTO) 0.6 % (0.0-2.0); EOSINOPHILS % (AUTO) 0.9 % (0.0-6.0); HEMATOCRIT 38 % (39-51); HEMOGLOBIN 12.9 g/dL (13.5-17.5); LYMPHOCYTES # (AUTO) 0.4 K/uL (0.8-4.8); LYMPHOCYTES % (AUTO) 16.5 % (20.0-44.0); MEAN CORPUSCULAR HGB CONC 34 g/dl (31.0-36.0); MEAN CORPUSCULAR VOLUME 87 fL (80-96); MONOCYTES # (AUTO) 0.3 K/uL (0.1-1.30); MONOCYTES % (AUTO) 13.7 % (2.0-12.0); NEUTROPHILS # (AUTO) 1.6 K/uL (1.8-8.9); NEUTROPHILS % (AUTO) 68.3 % (43.0-81.0); PLATELET COUNT (AUTO) 180 K/uL (150-450); WHITE BLOOD COUNT (AUTO) 2.3 K/uL (4.3-11.0)
[2021-05-18 07:21] LABS: BILIRUBIN,TOTAL 0.3 mg/dL (0.2-1.0); CALCIUM, SERUM 8.7 mg/dL (8.5-10.1); TOTAL PROTEIN, SERUM 7.5 g/dL (6.4-8.2)
[2021-05-18] MEDS: PANTOPRAZOLE 40 MG TABLET.DR PO SCH (07:30)
--- NOTE | 2021-05-18 07:30 | NUR ---
MS RN OPENING NOTES RECEIVED PATIENT IN BED, AWAKE, A/O X4. NO S/S OF DISTRESS NOTED. NO COMPLAINTS OF PAIN AT THIS TIME. NOTED WITH RIGHT FOOT DRESSING CLEAN,DRY AND INTACT. CALL LIGHT WITHIN REACH. BED IN LOWEST AND LOCKED POSITION. AMBULATORY. SAFETY PRECAUTIONS IN PLACE: BED ON LOWEST LOCKED POSITION, SIDE RAILS UP X 2, CALL LIGHT WITHIN EASY REACH. REINFORCED NPO. WILL CONTINUE TO MONITOR ACCORDINGLY.
[2021-05-18 08:00] VITALS: BP 169/85
[2021-05-18] MEDS: GLUCERNA SHAKE 237 ML CAN PO SCH ×2 (08:00→17:04)
[2021-05-18] MEDS: DAPSONE 25 MG TABLET PO SCH (08:29)
[2021-05-18] MEDS: AMLODIPINE BESYLATE 5 MG TABLET PO SCH (08:29)
[2021-05-18] MEDS: LISINOPRIL (10MG) 10 MG TABLET PO SCH ×2 (08:30→20:57)
[2021-05-18] MEDS: INSULIN GLARGINE, 100 UNIT/ML CARTRIDGE SQ SCH ×2 (08:33→20:11)
--- NOTE | 2021-05-18 11:40 | NUR ---
RN NOTES PATIENT WAS PICKED UP BY OR STAFF. LEFT UNIT IN STABLE CONDITION.
[2021-05-18] MEDS ORDERED: BUPIVACAINE 0.5 % PF 150 MG/30 ML VIAL ONE (12:03)
[2021-05-18] MEDS ORDERED: FENTANYL PF 250MCG/5ML AMPUL ONE (12:10)
[2021-05-18] MEDS ORDERED: FAMOTIDINE/PF INJ 20 MG/2 ML VIAL IV ONE (12:11)
[2021-05-18] MEDS ORDERED: MIDAZOLAM HCL 2 MG/2ML VIAL ONE (12:11)
[2021-05-18] MEDS ORDERED: CLINDAMYCIN 900 MG/6 ML VIAL ONE (12:21)
[2021-05-18] MEDS ORDERED: hydrALAZINE HCL IV 20 MG VIAL ONE (14:00)
--- NOTE | 2021-05-18 15:05 | NUR ---
RN NOTES RECEIVED PATIENT FROM RR ACCOMPANIED BY ROSEANNE JUDD. PATIENT IS AWAKE, ALERT AND ORIENTED X 4, ABLE TO MAKE NEEDS KNOWN. S/P AMPUTATION OF 5TH RIGHT TOE. VITAL SIGNS WITHIN NORMAL LIMITS. NOTED WITH DRY AND INTACT DRESSING ON THE RIGHT FOOT. SURGICAL SHOE AT BED SIDE. PICC LINE ON DEIDRE INTACT, PATENT AND F;LUSHES WELL. POST OP ORDERS NOTED AND CARRIED OUT. SAFETY PRECAUTIONS IN PLACE: BED ON LOWEST LOCKED POSITION, SIDE RAILS UP X 2, CALL LIGHT WITHIN EASY REACH. WILL CONTINUE TO MONITOR.
[2021-05-18 16:00] VITALS: BP 114/70
[2021-05-18] MEDS: INSULIN REGULAR, HUMAN 100 UNIT/ML 3 ML VIAL SQ PRN (17:07)
--- NOTE | 2021-05-18 18:45 | NUR ---
MS RN CLOSING NOTES PATIENT IN BED, ASLEEP, EASILY AWAKEN BY VERBAL AND TACTILE STIMULI. S/P AMPUTATION OF 5TH RIGHT TOE. WITH DRY AND INTACT DRESSING ON THE RIGHT FOOT NOTED. SURGICAL SHOE AT BED SIDE. PICC LINE ON DEIDRE INTACT, PATENT AND FLUSHES WELL. SAFETY PRECAUTIONS IN PLACE: BED ON LOWEST LOCKED POSITION, SIDE RAILS UP X 2, CALL LIGHT WITHIN EASY REACH. ALL NEEDS ATTENDED AND MET, DUE MEDS GIVEN ORDERED. WILL ENDORSE TO ONCOMING SHIFT FOR RYAN.
--- NOTE | 2021-05-18 19:45 | NUR ---
MS RN NOTES RECEIVED LAYING COMFORTABLY ON BED,A/O X4,BREATHING EASY,NO SOB,S/P RIGHT 5TH TOE ULCER AMPUTATION DUE TO OSTEOMYELITIS.WITH RIGHT UPPER ARM PICC LINE INTACT AND PATENT.DRESSING TO RIGHT FOOT INTACT AND PATENT,ELEVATED ON PILLOWS.PAIN TOLERABLE AT THE MOMENT.CALL LIGHT IN REACH,NEEDS ANTICIPATED.
[2021-05-18 20:00] VITALS: BP 166/86
--- NOTE | 2021-05-18 20:00 | NUR ---
MS RN NOTES ACCU-CHECK BLOOD SUGAR CHECK 295,DUE LANTUS 16 UNITS GIVEN SCHEDULED.PATIENT ORDERED PIZZA,AT BEDSIDE.
--- NOTE | 2021-05-18 21:30 | NUR ---
MS RN NOTES TWO VISITOR CAME TO VISIT PATIENT.
--- NOTE | 2021-05-18 21:44 | NUR ---
MS RN NOTES PAIN MANAGEMENT C/O RIGHT FOOT PAIN 8/10 ON PAIN SCALE,MORPHINE 2MG IV GIVEN ORDERED FOR SEVERE PAIN
--- NOTE | 2021-05-18 22:00 | NUR ---
MS RN NOTES ACCU-CHECK BLOOD SUGAR CHECK 458,HUMULIN R 10 UNITS GIVEN SQ ORDERED PER SLIDING SCALE AND WILL NOTIFY MD SHANDA BYERS
[2021-05-18] MEDS: *INSULIN REGULAR(HUMULIN R)HUM 100 UNIT/ML VIAL SQ PRN (22:35)
[2021-05-18] MEDS: HYDROCODONE/APAP 5/325MG TABLET PO PRN (22:41)
[2021-05-18] MEDS: CLONIDINE HCL 0.1 MG TABLET PO PRN (22:41)
--- NOTE | 2021-05-18 22:41 | NUR ---
MS RN NOTES BP 166/84 MEDICATED WITH CLONIDINE 0.1MG PO ORDERED FOR SBP>160.WILL RECHECK BLOOD PRESSURE IN A FEW HOURS.
--- NOTE | 2021-05-18 22:41 | NUR ---
MS RN NOTES STILL IN PAIN 7/10 ON PAIN SCALE,MEDICATED WITH NORCO 5/325MG,1TAB PO ORDERED.
--- NOTE | 2021-05-18 23:00 | NUR ---
MS RN NOTES SCREAMING IN PAIN,CANT WAIT FOR MEDICINE TO GO TO HIS SYSTEM.HOSPITALIST TURKEY PINNER WAS PAGE AWAITING TO CALL BACK.
--- NOTE | 2021-05-18 23:05 | NUR ---
MS RN NOTES HOSPITALIST SHANDA BYERS CALLED BACK WITH NEW ORDERS NOTED AND CARRIED OUT
[2021-05-18] MEDS: HYDROMORPHONE 1 MG/1 ML DISP.SYRIN IV PRN (23:18)
--- NOTE | 2021-05-18 23:18 | NUR ---
MS RN NOTES PAIN MANAGEMENT MEDICATED WITH DILAUDID 1MG IV ORDERED.
--- NOTE | 2021-05-18 23:21 | NUR ---
MS RN NOTES SHANDA BYERS MADE AWARE OF BLOOD SUGAR LEVEL, WITH ORDER TO GIVE EXTRA 15 UNITS OF HUMULIN R ONE TIME ORDER, ADMINISTERED.PATIENT IS VERY MUCH NON COMPLIANT TO FOOD INTAKE.
[2021-05-18] MEDS ORDERED: INSULIN REGULAR, HUMAN 100 UNIT/ML 3 ML VIAL SQ ONE (23:30)
--- NOTE | 2021-05-19 | NUR ---
MS RN NOTES LATEST BLOOD PRESSURE 109/53 .
[2021-05-19] MEDS: MEROPENEM 1 G in IV NS 0.9% 100 ML IV SCH ×3 (01:10→20:44)
[2021-05-19] MEDS: HYDROMORPHONE 1 MG/1 ML DISP.SYRIN IV PRN ×5 (04:18→21:23)
--- NOTE | 2021-05-19 04:18 | NUR ---
MS RN NOTES PAIN MANAGEMENT AWAKE,C/O PAIN ON RIGHT FOOT,DILAUDID 1MG IV GIVEN FOR SEVERE PAIN.
[2021-05-19] MEDS: BLOOD SUGAR DIAGNOSTIC 1 EACH STRIP VI SCH (05:46)
[2021-05-19] MEDS: INSULIN REGULAR, HUMAN 100 UNIT/ML 3 ML VIAL SQ PRN ×3 (06:06→17:18)
--- NOTE | 2021-05-19 06:15 | NUR ---
MS RN NOTES ACCU-CHECK BLOOD SUGAR CHECK 413,COVERED WITH HUMULIN R 15 UNITS ORDERED AC BREAKFAST.
[2021-05-19 06:45] LABS: BASOPHILS % (AUTO) 0.2 % (0.0-2.0); EOSINOPHILS % (AUTO) 0.1 % (0.0-6.0); HEMATOCRIT 34 % (39-51); HEMOGLOBIN 11.5 g/dL (13.5-17.5); LYMPHOCYTES # (AUTO) 0.3 K/uL (0.8-4.8); LYMPHOCYTES % (AUTO) 8.1 % (20.0-44.0); MEAN CORPUSCULAR HGB CONC 34 g/dl (31.0-36.0); MEAN CORPUSCULAR VOLUME 87 fL (80-96); MONOCYTES # (AUTO) 0.4 K/uL (0.1-1.30); MONOCYTES % (AUTO) 11.6 % (2.0-12.0); NEUTROPHILS # (AUTO) 2.8 K/uL (1.8-8.9); PLATELET COUNT (AUTO) 122 K/uL (150-450); RED BLOOD CELL COUNT(AUTO) 3.89 MIL/uL (4.5-6.0); WHITE BLOOD COUNT (AUTO) 3.5 K/uL (4.3-11.0)
--- NOTE | 2021-05-19 06:48 | NUR ---
MS RN NOTES SLEPT WITH INTERVAL,RIGHT FOOT REMAINS ELEVATED ON PILLOWS.IV AT TKO RATE.ALL DUE MEDS ADMINISTERED.IN NO ACUTE DISTRESS
--- NOTE | 2021-05-19 07:17 | NUR ---
MS RN OPENING NOTES RECEIVED PT AWAKE IN BED IN NO ACUTE SIGNS OF DISTRESS. A/O X4. ABLE TO MAKE NEEDS KNOWN, DENIES PAIN OR DISCOMFORTS AT THIS TIME. ON ROOM AIR. TOLERATING WELL, BREATHING EVEN AND UNLABORED. DEIDRE PICC LINE INTACT, PATENT AND FLUSHES WELL. DRESSING ON RIGHT FOOT WRAPPED WITH CLARA BANDAGE C/D/I. SAFETY PRECAUTIONS IN PLACE: BED IN LOWEST LOCKED POSITION, SIDE RAILS UP X2 AND CALL LIGHT AND TABLE WITHIN REACH. WILL CONTINUE TO MONITOR.
[2021-05-19 07:20] LABS: ALBUMIN 2.7 g/dL (3.4-5.0); BILIRUBIN,TOTAL 0.5 mg/dL (0.2-1.0); CALCIUM, SERUM 8.2 mg/dL (8.5-10.1); CREATININE 1.4 mg/dL (0.6-1.3); PHOSPHORUS 3.3 mg/dL (2.5-4.9); POTASSIUM 4.1 mmol/L (3.5-5.1); TOTAL PROTEIN, SERUM 6.2 g/dL (6.4-8.2)
[2021-05-19] MEDS: PANTOPRAZOLE 40 MG TABLET.DR PO SCH (07:27)
[2021-05-19 08:00] VITALS: BP 119/60
--- NOTE | 2021-05-19 08:27 | NUR ---
RN NOTES RECEIVED CALL FROM [facility] REGARDING CRITICAL HIGH BLOOD GLUCOSE 417. DR ALEJO MADE AWARE AND ACKNOWLEDGED.
[2021-05-19] MEDS: GLUCERNA SHAKE 237 ML CAN PO SCH ×2 (08:31→17:17)
[2021-05-19] MEDS: AMLODIPINE BESYLATE 5 MG TABLET PO SCH (08:32)
[2021-05-19] MEDS: DAPSONE 25 MG TABLET PO SCH (08:32)
[2021-05-19] MEDS: LISINOPRIL (10MG) 10 MG TABLET PO SCH ×2 (08:33→20:44)
[2021-05-19 08:36] LABS: BAND % (MANUAL) 4 % (0.0-5.0); LYMPHOCYTES % (MANUAL) 4 % (16-48); MONOCYTES % (MANUAL) 10 % (0-11.0); NEUTROPHILS % (MANUAL) 82 (42-76)
[2021-05-19] MEDS: INSULIN GLARGINE, 100 UNIT/ML CARTRIDGE SQ SCH ×2 (09:03→21:07)
--- NOTE | 2021-05-19 09:14 | NUR ---
RN NOTES PT C/O OF PAIN ON HIS RIGHT FOOT AFTER WALKING WITH FWW WITH PHYSICAL THERAPY, 9/10 SCALE. PRN DILAUDID 1MG/ML IVP ADMINISTERED AT 0911. WILL CONTINUE TO MONITOR AND REASSESS.
[2021-05-19] MEDS ORDERED: HOME MED MISCELLANEOUS PO SCH ×2 (09:30→09:41)
[2021-05-19] MEDS ORDERED: DEXTROSE 50%-WATER 50 ML DISP.SYRIN IV PRN (10:00)
--- NOTE | 2021-05-19 10:31 | NUR ---
RN NOTES RECEIVED CALL FROM PHARMACY THAT PT'S HOME MED BIKTARVY 50-200-25MG TAB IS . INFORMED PT IF HE CAN BRING MED THAT WAS GIVEN TO HIM FROM HIS PHARMACY ON APR 2021 AND HE STATED THAT HE WILL ASK SOMEBODY TO BRING IT FROM HOME.
[2021-05-19] MEDS: BLOOD SUGAR DIAGNOSTIC 1 EACH STRIP IN SCH ×3 (11:20→21:23)
[2021-05-19 16:00] VITALS: BP 155/82
--- NOTE | 2021-05-19 17:38 | NUR ---
RN NOTES PT C/O OF PAIN ON HIS RIGHT FOOT, 8/10 SCALE. PRN DILAUDID 1MG/ML IVP ADMINISTERED AT 1735. WILL CONTINUE TO MONITOR AND REASSESS.
--- NOTE | 2021-05-19 18:35 | NUR ---
MS RN CLOSING NOTES PT IN BED AWAKE AND WATCHING TV AT THIS TIME. A/O X4. ABLE TO MAKE NEEDS KNOWN. DIABETIC STATUS CLOSELY MONITORED, NO S/S OF HYPO/HYPERGLYCEMIA NOTED. ON ROOM AIR. TOLERATING WELL WITH NO SOB NOTED DURING THE DAY. DEIDRE PICC LINE INTACT, PATENT AND FLUSHES WELL. ALL NEEDS AND CARE ATTENDED WELL. SAFETY PRECAUTIONS IN PLACE: BED IN LOWEST LOCKED POSITION, HOB ELEVATED, SIDE RAILS UP X2, CALL LIGHT AND TABLE WITHIN EASY REACH OF PT. WILL ENDORSE RYAN TO INSULATION HELPER NURSE.
--- NOTE | 2021-05-19 19:15 | NUR ---
MS RN OPENING NOTES RECEIVED PATIENT LAYING AWAKE IN BED. A/O X4. PATIENT WITH REGULAR AND UNLABORED BREATHING ON ROOM AIR, TOLERATED WELL. NO SIGNS AND SYMPTOMS OF DISTRESS NOTED. NO COMPLAIN OF PAIN OR DISCOMFORT AT THIS TIME. IV ACCESS DEIDRE PICC LINE SL. ACCESS PATENT AND INTACT. SAFETY PRECAUTIONS ENFORCED BED LOCKED AND AT LOWEST POSITION. SIDERAILS UP X2. CALL LIGHT WITHIN REACH AT ALL TIMES. WILL CONTINUE TO MONITOR PATIENT.
[2021-05-19 20:00] VITALS: BP 148/77
[2021-05-19] MEDS: *INSULIN REGULAR(HUMULIN R)HUM 100 UNIT/ML VIAL SQ PRN (21:10)
--- NOTE | 2021-05-19 21:23 | NUR ---
MS RN NOTES PATIENT COMPLAINED OF PAIN. ADMINISTERED DILAUDID 1MG/ML Q4H PRN ORDERED BY HOSPITALIST.
[2021-05-20] MEDS: ZOLPIDEM TARTRATE 5 MG TABLET PO PRN ×2 (00:07→23:38)
[2021-05-20] MEDS: HYDROMORPHONE 1 MG/1 ML DISP.SYRIN IV PRN ×4 (01:46→21:55)
--- NOTE | 2021-05-20 01:46 | NUR ---
MS RN NOTES PATIENT COMPLAINED OF PAIN. ADMINISTERED DILAUDID 1MG/ML Q4H PRN ORDERED BY HOSPITALIST.
[2021-05-20] MEDS: HYDROCODONE/APAP 5/325MG TABLET PO PRN (04:52)
--- NOTE | 2021-05-20 04:55 | NUR ---
MSRN VERBALIZES PAIN RIGHT FOOT. NORCO 1 TAB PO ADMINISTERED. PAIN MGT REVIEWED WITH PATIENT VERBALIZES UNDERSTANDING. BEDREST EMPHASIZED.
[2021-05-20] MEDS: BLOOD SUGAR DIAGNOSTIC 1 EACH STRIP IN SCH ×4 (07:05→21:31)
[2021-05-20] MEDS: INSULIN REGULAR, HUMAN 100 UNIT/ML 3 ML VIAL SQ PRN ×3 (07:07→17:14)
--- NOTE | 2021-05-20 07:33 | NUR ---
MS RN CLOSING NOTES PATIENT STILL LAYING AWAKE IN BED. A/O X4. PATIENT WITH REGULAR AND UNLABORED BREATHING ON ROOM AIR, TOLERATED WELL. NO SIGNS AND SYMPTOMS OF DISTRESS NOTED. NO COMPLAIN OF PAIN OR DISCOMFORT AT THIS TIME. IV ACCESS DEIDRE PICC LINE SL. ACCESS PATENT AND INTACT. SAFETY PRECAUTIONS ENFORCED BED LOCKED AND AT LOWEST POSITION. SIDERAILS UP X2. CALL LIGHT WITHIN REACH AT ALL TIMES. WILL ENDORSE RYAN TO DAY SHIFT NURSE.
--- NOTE | 2021-05-20 08:01 | NUR ---
RN note Patient received in bed, AO x 4, able to responds all stimuli. Skin is warm to touch, keep clean/dry, intact picc line on right upper arm. Patient does no c/o pain or discomfort at this time. Patient able to reposition self. Respiratory even and unlabored on room air, no SOB observed. Call light within reach, kept lower bed position for safety. Will continue to monitor.
[2021-05-20 08:07] VITALS: BP 130/74
[2021-05-20] MEDS: MEROPENEM 1 G in IV NS 0.9% 100 ML IV SCH ×2 (08:25→21:14)
[2021-05-20] MEDS: BIKTARVY PO SCH (08:25)
[2021-05-20] MEDS: AMLODIPINE BESYLATE 5 MG TABLET PO SCH (08:34)
[2021-05-20] MEDS: DAPSONE 25 MG TABLET PO SCH (08:34)
[2021-05-20] MEDS: LISINOPRIL (10MG) 10 MG TABLET PO SCH ×2 (08:35→21:14)
[2021-05-20] MEDS: PANTOPRAZOLE 40 MG TABLET.DR PO SCH (08:35)
[2021-05-20] MEDS: GLUCERNA SHAKE 237 ML CAN PO SCH ×2 (08:42→17:20)
[2021-05-20] MEDS: INSULIN GLARGINE, 100 UNIT/ML CARTRIDGE SQ SCH ×2 (08:55→21:25)
[2021-05-20 16:18] LABS: BASOPHILS % (AUTO) 0.4 % (0.0-2.0); HEMATOCRIT 35 % (39-51); HEMOGLOBIN 11.8 g/dL (13.5-17.5); LYMPHOCYTES # (AUTO) 0.4 K/uL (0.8-4.8); LYMPHOCYTES % (AUTO) 14.3 % (20.0-44.0); MEAN CORPUSCULAR HGB CONC 34 g/dl (31.0-36.0); MEAN CORPUSCULAR VOLUME 86 fL (80-96); MONOCYTES # (AUTO) 0.5 K/uL (0.1-1.30); MONOCYTES % (AUTO) 15.8 % (2.0-12.0); NEUTROPHILS % (AUTO) 68.5 % (43.0-81.0); PLATELET COUNT (AUTO) 117 K/uL (150-450); RED BLOOD CELL COUNT(AUTO) 4.13 MIL/uL (4.5-6.0); WHITE BLOOD COUNT (AUTO) 2.9 K/uL (4.3-11.0)
[2021-05-20 16:24] VITALS: BP 142/89
[2021-05-20 16:35] LABS: ALBUMIN 2.8 g/dL (3.4-5.0); BILIRUBIN,TOTAL 0.3 mg/dL (0.2-1.0); CALCIUM, SERUM 8.5 mg/dL (8.5-10.1); CREATININE 1.1 mg/dL (0.6-1.3); MAGNESIUM 1.7 mg/dL (1.8-2.4); PHOSPHORUS 3.4 mg/dL (2.5-4.9); POTASSIUM 3.8 mmol/L (3.5-5.1); TOTAL PROTEIN, SERUM 7.1 g/dL (6.4-8.2)
[2021-05-20 17:10] LABS: BAND % (MANUAL) 12 % (0.0-5.0); LYMPHOCYTES % (MANUAL) 14 % (16-48); MONOCYTES % (MANUAL) 10 % (0-11.0); NEUTROPHILS % (MANUAL) 64 (42-76)
--- NOTE | 2021-05-20 17:55 | NUR ---
RN Closing Note Patient in bed, resting, remains AO x 4. Respiratory even and unabashed on room air. Skin is warm to touch, keep clean/dry, intact picc line site on right upper arm. No s/s of adverse reaction observed from Abx. Kept elevated HOB for airway and lower position of the bed for safety. Call light within reach, all needs met. will endorse manufacturing shift supervisor.
--- NOTE | 2021-05-20 20:00 | NUR ---
RN NOTES RECEIVED PATIENT UP IN WHEELCHAIR, ALERT/ORIENTED X4, STABLE ON ROOM AIR, RIGHT FOOT WITH BULKY DRESSING, S/P RIGHT FIFTH TOE AMPUTATION, INDEPENDENT WITH TRANSFER FROM BED TO WHEELCHAIR, GOES AROUND WITH WHEELCHAIR, KEPT SAFE, PERSONAL BELONGINGS WITHIN REACH, WILL CONTINUE TO MONITOR.
[2021-05-20] MEDS: *INSULIN REGULAR(HUMULIN R)HUM 100 UNIT/ML VIAL SQ PRN (21:25)
[2021-05-21] MEDS: HYDROMORPHONE 1 MG/1 ML DISP.SYRIN IV PRN ×4 (06:01→19:27)
[2021-05-21] MEDS: BLOOD SUGAR DIAGNOSTIC 1 EACH STRIP IN SCH ×4 (06:35→21:57)
[2021-05-21] MEDS: INSULIN REGULAR, HUMAN 100 UNIT/ML 3 ML VIAL SQ PRN ×3 (06:43→16:52)
--- NOTE | 2021-05-21 06:54 | NUR ---
Alert/oriented x4, stable on room air, s/p 05/18/21 right 5th toe amputation by Dr. Beltre, dressing dry and intact, kerlix, tram wrap, given Dilaudid 1 mg IV for pain with adequate relief, uses wheelchair to get around, independent with transfer from bed, to wheelchair, DEIDRE PICC line double lumen HL, accucheck ACHS, Lantus 16 units QHS, per ID, continue Merrem, then when DC to home, will be on Doxycycline 100 mg PO x10-14 days or until wound is healed
[2021-05-21 07:18] LABS: BASOPHILS % (AUTO) 0.5 % (0.0-2.0); EOSINOPHILS % (AUTO) 1.1 % (0.0-6.0); HEMATOCRIT 37 % (39-51); HEMOGLOBIN 12.7 g/dL (13.5-17.5); LYMPHOCYTES # (AUTO) 0.5 K/uL (0.8-4.8); LYMPHOCYTES % (AUTO) 18.1 % (20.0-44.0); MEAN CORPUSCULAR HGB CONC 34 g/dl (31.0-36.0); MEAN CORPUSCULAR VOLUME 86 fL (80-96); MONOCYTES # (AUTO) 0.4 K/uL (0.1-1.30); MONOCYTES % (AUTO) 13.9 % (2.0-12.0); NEUTROPHILS # (AUTO) 1.7 K/uL (1.8-8.9); NEUTROPHILS % (AUTO) 66.4 % (43.0-81.0); PLATELET COUNT (AUTO) 124 K/uL (150-450); RED BLOOD CELL COUNT(AUTO) 4.33 MIL/uL (4.5-6.0); WHITE BLOOD COUNT (AUTO) 2.6 K/uL (4.3-11.0)
[2021-05-21 07:31] LABS: CALCIUM, SERUM 8.7 mg/dL (8.5-10.1); POTASSIUM 4.1 mmol/L (3.5-5.1)
[2021-05-21 07:38] LABS: ALBUMIN 2.9 g/dL (3.4-5.0); BILIRUBIN,TOTAL 0.3 mg/dL (0.2-1.0); TOTAL PROTEIN, SERUM 7.5 g/dL (6.4-8.2)
--- NOTE | 2021-05-21 07:39 | NUR ---
MS RN OPENING NOTE PATIENT IN BED, ALERT AND ORIENTED X 4 . PT ON ROOM AIR, TOLERATING WELL. BREATHING IS EVEN AND UNLABORED. IV ACCESS DEIDRE PICC LINE PATENT, CLEAN AND INTACT. NO C/O PAIN OR DISCOMFORT. NO S/SX ACUTE DISTRESS. SKIN WARM AND DRY TO TOUCH. ALL SAFETY MEASURE IN PLACE. BOTH SIDE RAILS UP. BED IN LOW POSITION AND LOCKED. CALL LIGHT WITH IN REACH. WILL CONTINUE TO MONITOR THROUGHOUT SHIFT.
[2021-05-21] MEDS: PANTOPRAZOLE 40 MG TABLET.DR PO SCH (08:18)
[2021-05-21] MEDS: GLUCERNA SHAKE 237 ML CAN PO SCH ×2 (08:18→16:48)
[2021-05-21 08:24] VITALS: BP 157/100
[2021-05-21] MEDS: DAPSONE 25 MG TABLET PO SCH (08:35)
[2021-05-21] MEDS: MEROPENEM 1 G in IV NS 0.9% 100 ML IV SCH ×2 (08:35→20:46)
[2021-05-21] MEDS: AMLODIPINE BESYLATE 5 MG TABLET PO SCH (08:36)
[2021-05-21] MEDS: BIKTARVY PO SCH (08:36)
[2021-05-21] MEDS: LISINOPRIL (10MG) 10 MG TABLET PO SCH ×2 (08:36→20:54)
[2021-05-21] MEDS: INSULIN GLARGINE, 100 UNIT/ML CARTRIDGE SQ SCH ×2 (08:37→21:56)
[2021-05-21] MEDS: HYDROCODONE/APAP 5/325MG TABLET PO PRN (08:40)
[2021-05-21 09:08] LABS: EOSINOPHILS % (MANUAL) 2 % (0-4); LYMPHOCYTES % (MANUAL) 14 % (16-48); METAMYELOCYTES % 2 % (0-0); MONOCYTES % (MANUAL) 14 % (0-11.0); MYELOCYTES % 2 % (0-0); NEUTROPHILS % (MANUAL) 66 (42-76)
[2021-05-21 16:06] VITALS: BP 144/90
[2021-05-21] MEDS: CHLORHEXIDINE GLUCONATE 15 ML UDC MM PRN (17:22)
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
--- NOTE | 2021-05-21 19:30 | NUR ---
MS RN OPENING NOTE RECEIVED PATIENT IN BED. A/OX4. NO S/S OF APPARENT DISTRESS. C/O PAIN -- BINTA VANEGAS WILL GIVE PAIN MEDICATION BEFORE SHE LEAVES. R. FOOT NOTED TO HAVE KERLIX AND CLARA WRAPPED -- DRY AND INTACT, WITH BOOTS. PATIENT ABLE TO MAKE NEEDS KNOWN. NEEDS ATTENDED FOR NOW. WILL CONTINUE WITH PLAN OF CARE FOR PATIENT.
--- NOTE | 2021-05-21 19:45 | NUR ---
PORTABLE PINCH RIVETER NOTE RECEIVED PATIENT IN BED WATCHING TV. A/OX4. NO S/S OF APPARENT DISTRESS ON 2LPM OF O2. PATIENT DENIES PAIN AT THIS TIME. IV NS RUNNING AT 40 ML/HR. TELE MONITOR READING SR 95. ABLE TO MAKES KNOWN. NEEDS ATTENDED FOR NOW. SAFETY IN PLACE. WILL CONTINUE WITH PLAN OF CARE.
[2021-05-21 20:00] VITALS: BP 141/97
[2021-05-21] MEDS: *INSULIN REGULAR(HUMULIN R)HUM 100 UNIT/ML VIAL SQ PRN (22:08)
[2021-05-21] MEDS: ZOLPIDEM TARTRATE 5 MG TABLET PO PRN (22:28)
[2021-05-22] MEDS: HYDROMORPHONE 1 MG/1 ML DISP.SYRIN IV PRN ×4 (03:29→22:37)
--- NOTE | 2021-05-22 03:40 | NUR ---
MS RN NOTE PATIENT REFUSED DRESSING CHANGE EVEN AFTER DILAUDID. PER PATIENT IT WAS VERY PAINFUL WHEN THEY OPENED IT YESTERDAY. PER PATIENT LAST DRESSING CHANGE WAS YESTERDAY WELL. I CLARIFIED WITH CHARGE NURSEFELIPE ABOUT PATIENT REFUSING THE DRESSING CHANGE SINCE DR. WILLIS DID PUT IN A DAILY WOUND CARE TREATMENT FOR PATIENT S/P. PER RICH WANG, IT IS THE [employer] SUBSCRIPTION SOLICITOR OR WOUND CARE NURSE WHO CHANGES THE DRESSING AND DO THE WOUND TX. CHECKED THE DRESSING AND IT WAS DRY AND INTACT. WILL MONITOR.
--- NOTE | 2021-05-22 05:11 | NUR ---
MS RN NOTE PATIENT REFUSES LAB WORKS AT THIS TIME. PER PATIENT THEY COULD COME BACK LATER.
[2021-05-22] MEDS: BLOOD SUGAR DIAGNOSTIC 1 EACH STRIP IN SCH ×4 (06:41→21:03)
[2021-05-22] MEDS: INSULIN REGULAR, HUMAN 100 UNIT/ML 3 ML VIAL SQ PRN ×3 (06:46→17:21)
[2021-05-22] MEDS: HYDROCODONE/APAP 5/325MG TABLET PO PRN (06:51)
[2021-05-22 07:22] LABS: BASOPHILS % (AUTO) 0.3 % (0.0-2.0); EOSINOPHILS % (AUTO) 1.1 % (0.0-6.0); HEMATOCRIT 37 % (39-51); HEMOGLOBIN 12.5 g/dL (13.5-17.5); LYMPHOCYTES # (AUTO) 0.5 K/uL (0.8-4.8); LYMPHOCYTES % (AUTO) 26.5 % (20.0-44.0); MEAN CORPUSCULAR HGB CONC 34 g/dl (31.0-36.0); MEAN CORPUSCULAR VOLUME 85 fL (80-96); MONOCYTES # (AUTO) 0.3 K/uL (0.1-1.30); MONOCYTES % (AUTO) 18.8 % (2.0-12.0); NEUTROPHILS # (AUTO) 0.9 K/uL (1.8-8.9); NEUTROPHILS % (AUTO) 53.3 % (43.0-81.0); PLATELET COUNT (AUTO) 129 K/uL (150-450); RED BLOOD CELL COUNT(AUTO) 4.32 MIL/uL (4.5-6.0)
--- NOTE | 2021-05-22 07:26 | NUR ---
ms rn note report given to BINTA JIMENES for continuity of care.
--- NOTE | 2021-05-22 07:27 | NUR ---
RN OPENING NOTE- PT AWAKE. A/OX4. RESPIRATIONS EVEN/UNLABORED. IV ACCESS PICC DEIDRE. PT IN NO ACUTE DISTRESS. SAFETY MEASURES IN PLACE, BED IN LOWEST LOCKED POSITION, S/R UPX2, CALL LIGHT WITHIN REACH. WILL CONT TO MONITOR.
[2021-05-22 07:28] LABS: ALBUMIN 2.9 g/dL (3.4-5.0); BILIRUBIN,TOTAL 0.3 mg/dL (0.2-1.0); CALCIUM, SERUM 9.1 mg/dL (8.5-10.1); POTASSIUM 4.2 mmol/L (3.5-5.1); TOTAL PROTEIN, SERUM 7.4 g/dL (6.4-8.2)
[2021-05-22 07:52] LABS: WHITE BLOOD COUNT (AUTO) 1.7 K/uL (4.3-11.0)
[2021-05-22 08:00] VITALS: BP 136/85
--- NOTE | 2021-05-22 08:00 | NUR ---
RN NOTE- LAB PHONED CRITICAL VALUE WBC 1.7. DR SALTER MADE AWARE. NO NEW ORDERS
[2021-05-22] MEDS: GLUCERNA SHAKE 237 ML CAN PO SCH ×2 (08:21→16:37)
[2021-05-22] MEDS: PANTOPRAZOLE 40 MG TABLET.DR PO SCH (08:21)
[2021-05-22] MEDS: MEROPENEM 1 G in IV NS 0.9% 100 ML IV SCH ×2 (08:27→20:39)
[2021-05-22] MEDS: LISINOPRIL (10MG) 10 MG TABLET PO SCH ×2 (09:16→20:39)
[2021-05-22] MEDS: DAPSONE 25 MG TABLET PO SCH (09:16)
[2021-05-22] MEDS: BIKTARVY PO SCH (09:16)
[2021-05-22] MEDS: AMLODIPINE BESYLATE 5 MG TABLET PO SCH (09:16)
[2021-05-22] MEDS: INSULIN GLARGINE, 100 UNIT/ML CARTRIDGE SQ SCH ×2 (09:23→20:57)
[2021-05-22 10:15] LABS: BAND % (MANUAL) 3 % (0.0-5.0); LYMPHOCYTES % (MANUAL) 27 % (16-48); MONOCYTES % (MANUAL) 16 % (0-11.0); NEUTROPHILS % (MANUAL) 54 (42-76)
--- NOTE | 2021-05-22 10:30 | NUR ---
RN NOTE- WOUND CARE COMPLETED W DR WILLIS. NO SX OF INFECTION NOTED, MINIMAL DRAINAGE OR EXUDATE, NO ODOR. SUTURES INTACT, NO DEHISCENSE NOTED. WRAPPED W PETROLEUM GAUZE, 4X4 AND KERLIX. TOLERATED WELL.
--- NOTE | 2021-05-22 11:15 | NUR ---
RN NOTE- PT W STATED 'COLD SORE' TO ROOF OF MOUTH. ON EXAM, PT FOUND TO HAVE APPROX [id number] ULCERATION TO PALATE ON UPPER LEFT SIDE OF MOUTH. PURULENCE, ERYTHEMA NOTED. LYMPHADENOPATHY NOTED TO SUBMANDIBULAR AREA AND PAIN STATED. DR SALTER NOTIFIED. LIDOCAINE SWISH / VISCOUS ORDERED FOR PAIN.
[2021-05-22] MEDS: LIDOCAINE VISCOUS 2% UD 15 ML UDC MM SCH ×2 (11:46→20:56)
[2021-05-22 16:00] VITALS: BP 122/78
--- NOTE | 2021-05-22 18:29 | NUR ---
RN CLOSING NOTE- PT AWAKE. A/OX4. RESPIRATIONS EVEN/UNLABORED. IV ACCESS PICC DEIDRE. PT IN NO ACUTE DISTRESS. FOR DC TOMORROW. SAFETY MEASURES IN PLACE, BED IN LOWEST LOCKED POSITION, S/R UPX2, CALL LIGHT WITHIN REACH. WILL CONT TO MONITOR.
--- NOTE | 2021-05-22 19:59 | NUR ---
MS RN OPENING NOTES Patient is A&Ox4. denies needs at this time. DEIDRE PICC line patent and flushed. No s/s of hypo or hyperglycemic reactions noted. Tolerating treatment well. No signs of distress. Will continue to monitor.
[2021-05-22 20:00] VITALS: BP 128/93
--- NOTE | 2021-05-22 22:30 | NUR ---
BS 172 20 units lantus given. Pt. refuse sliding scale per. patient he gets hypoglycemic if taken regular insulin prior to bedtime.
[2021-05-23] MEDS: HYDROMORPHONE 1 MG/1 ML DISP.SYRIN IV PRN ×4 (04:02→20:37)
[2021-05-23] MEDS: LIDOCAINE VISCOUS 2% UD 15 ML UDC MM SCH ×2 (04:07→16:03)
--- NOTE | 2021-05-23 06:35 | NUR ---
Pt. refused AM labs at this time says it hurts when getting them drawn from the PICC line and does not want to do it until after breakfast when he has more strength and energy.
--- NOTE | 2021-05-23 06:36 | NUR ---
Patient has been A&Ox4 overnight. VSS. C/o pain to R foot x2 relieved by PRN Dilaudid. No s/sof hypo or hyperglycemic reactions noted. Dressing to R foot c/d/i. Tolerating IV ABX well no ase.
[2021-05-23] MEDS: BLOOD SUGAR DIAGNOSTIC 1 EACH STRIP IN SCH ×4 (06:41→22:55)
[2021-05-23] MEDS: INSULIN REGULAR, HUMAN 100 UNIT/ML 3 ML VIAL SQ PRN ×3 (06:42→17:45)
--- NOTE | 2021-05-23 07:30 | NUR ---
MS RN OPENING NOTES RECEIVED PATIENT ON BED AWAKE AND A/O X4. ON ROOM AIR BREATHING EVENLY AND UNLABORED. NO SOB NOTED. NOT IN DISTRESS. WITH NO COMPLAINTS OF PAIN OR DISCOMFORT AT THIS TIME. WITH IV ACCESS AT RIGHT UPPER ARM PICC LINE, SALINE LOCKED, PATENT AND INTACT. SAFETY MEASURES IN PLACED. CALL LIGHT WITHIN REACH. BED ON LOWEST AND LOCKED POSITION, SIDE RAILS UP X2. WILL CONTINUE TO MONITOR.
[2021-05-23 08:00] VITALS: BP 135/86
[2021-05-23] MEDS: BIKTARVY PO SCH (09:00)
[2021-05-23] MEDS: INSULIN GLARGINE, 100 UNIT/ML CARTRIDGE SQ SCH ×2 (09:05→23:08)
[2021-05-23 09:07] LABS: *BASOS 1 % (Not Estab.); *EOS 1 % (Not Estab.); *HCT 39.5 % (37.5-51.0); *HGB 12.8 g/dL (13.0-17.7); *IMMATURE GRANULOCYTES 3 % (Not Estab.); *IMMATURE GRANULOCYTES(ABS) 0.1 x10E3/uL (0.0-0.1); *LYMPHOCYTES 25 % (Not Estab.); *LYMPHS, ABSOLUTE 0.5 x10E3/uL (0.7-3.1); *MCH 27.7 pg (26.6-33.0); *MCHC 32.4 g/dL (31.5-35.7); *MCV 86 fL (79-97); *MONOCYTES 20 % (Not Estab.); *MONOS, ABSOLUTE 0.4 x10E3/uL (0.1-0.9); *NEUTROPHILS 50 % (Not Estab.); *NEUTROPHILS, ABSOLUTE 0.9 x10E3/uL (1.4-7.0); *PLT 156 x10E3/uL (150-450); *RBC 4.62 x10E6/uL (4.14-5.80)
[2021-05-23] MEDS: LISINOPRIL (10MG) 10 MG TABLET PO SCH ×2 (09:11→20:37)
[2021-05-23] MEDS: MEROPENEM 1 G in IV NS 0.9% 100 ML IV SCH (09:11)
[2021-05-23] MEDS: PANTOPRAZOLE 40 MG TABLET.DR PO SCH (09:11)
[2021-05-23] MEDS: GLUCERNA SHAKE 237 ML CAN PO SCH ×2 (09:12→17:47)
[2021-05-23] MEDS: AMLODIPINE BESYLATE 5 MG TABLET PO SCH (09:12)
[2021-05-23 09:22] LABS: BASOPHILS % (AUTO) 0.4 % (0.0-2.0); EOSINOPHILS % (AUTO) 1.6 % (0.0-6.0); HEMATOCRIT 37 % (39-51); HEMOGLOBIN 12.4 g/dL (13.5-17.5); LYMPHOCYTES # (AUTO) 0.5 K/uL (0.8-4.8); LYMPHOCYTES % (AUTO) 30.5 % (20.0-44.0); MEAN CORPUSCULAR HGB CONC 33 g/dl (31.0-36.0); MEAN CORPUSCULAR VOLUME 86 fL (80-96); MONOCYTES # (AUTO) 0.3 K/uL (0.1-1.30); MONOCYTES % (AUTO) 22.4 % (2.0-12.0); NEUTROPHILS # (AUTO) 0.7 K/uL (1.8-8.9); NEUTROPHILS % (AUTO) 45.1 % (43.0-81.0); PLATELET COUNT (AUTO) 128 K/uL (150-450); RED BLOOD CELL COUNT(AUTO) 4.34 MIL/uL (4.5-6.0)
[2021-05-23 09:52] LABS: WHITE BLOOD COUNT (AUTO) 1.5 K/uL (4.3-11.0)
[2021-05-23] MEDS: DAPSONE 25 MG TABLET PO SCH (09:55)
[2021-05-23 09:59] LABS: CALCIUM, SERUM 8.6 mg/dL (8.5-10.1); CREATININE 1.1 mg/dL (0.6-1.3); POTASSIUM 4.3 mmol/L (3.5-5.1)
[2021-05-23 10:05] LABS: ALBUMIN 2.8 g/dL (3.4-5.0); BILIRUBIN,TOTAL 0.3 mg/dL (0.2-1.0); TOTAL PROTEIN, SERUM 7.1 g/dL (6.4-8.2)
[2021-05-23 10:07] LABS: *% CD 4 POS. LYMPH 5.7 % (30.8-58.5); *% CD 8 POS. LYMPH 60.3 % (12.0-35.5); *ABSOLUTE CD 4 HELPER 29 /uL (359-1519); *ABSOLUTE CD 8 SUPPRESSOR 302 /uL (109-897); *CD4/CD8 RATIO 0.09 (0.92-3.72)
[2021-05-23 16:00] VITALS: BP 137/79
--- NOTE | 2021-05-23 18:54 | NUR ---
MS RN CLOSING NOTES PATIENT RESTING ON BED AWAKE AND A/O X4. ON ROOM AIR BREATHING EVENLY AND UNLABORED. NO SOB NOTED. NOT IN DISTRESS. WITH NO COMPLAINTS OF PAIN OR DISCOMFORT AT THIS TIME. WITH IV ACCESS AT RIGHT UPPER ARM PICC LINE, SALINE LOCKED, PATENT AND INTACT. DUE MEDS GIVEN. SAFETY MEASURES IN PLACED. CALL LIGHT WITHIN REACH. BED ON LOWEST AND LOCKED POSITION, SIDE RAILS UP X2. WILL ENDORSE TO NEXT SHIFT FOR RYAN.
--- NOTE | 2021-05-23 19:57 | NUR ---
MS RN OPENING NOTE PATIENT RECEIVED AWAKE IN BED. NO S/S OF DISTRESS, BREATHING SYMMETRICAL. DEIDRE PICC PATENT. SAFETY MEASURES IN PLACE: BED AT LOWEST POSITION, RAILS UP X2, CALL MARTIN WITHIN REACH. WILL CONTINUE TO MONITOR PATIENT.
[2021-05-23 20:00] VITALS: BP 137/84
[2021-05-23] MEDS: DOXYCYCLINE HYCLATE (100 MG) 100 MG TABLET PO SCH (20:36)
[2021-05-23 21:59] LABS: BAND % (MANUAL) 4 % (0.0-5.0); LYMPHOCYTES % (MANUAL) 48 % (16-48); MONOCYTES % (MANUAL) 16 % (0-11.0); NEUTROPHILS % (MANUAL) 32 (42-76)
[2021-05-23] MEDS: ZOLPIDEM TARTRATE 5 MG TABLET PO PRN (22:55)
[2021-05-23] MEDS: CHLORHEXIDINE GLUCONATE 15 ML UDC MM PRN (22:55)
[2021-05-23] MEDS: *INSULIN REGULAR(HUMULIN R)HUM 100 UNIT/ML VIAL SQ PRN (23:03)
[2021-05-24] MEDS: LIDOCAINE VISCOUS 2% UD 15 ML UDC MM SCH (03:45)
[2021-05-24] MEDS: HYDROMORPHONE 1 MG/1 ML DISP.SYRIN IV PRN ×2 (03:50→12:11)
[2021-05-24] MEDS: BLOOD SUGAR DIAGNOSTIC 1 EACH STRIP IN SCH (06:55)
[2021-05-24] MEDS: INSULIN REGULAR, HUMAN 100 UNIT/ML 3 ML VIAL SQ PRN (06:58)
--- NOTE | 2021-05-24 07:15 | NUR ---
MS RN CLOSING NOTE PATIENT IS ASLEEP IN BED. A/OX4. NO S/S OF DISTRESS; BREATHING SYMMETRICAL. SAFETY MEASURES IN PLACE: BED AT LOWEST POSITION, RAILS UP X2, CALL MARTIN WITHIN REACH. WILL ENDORSE TO NEXT SHIFT FOR RYAN.
[2021-05-24 08:00] VITALS: BP 135/90
--- NOTE | 2021-05-24 08:10 | NUR ---
RN OPENING NOTES PATIENT IN BED RESTING, AWAKE. A/O X4. NO S/S OF PAIN NOTED AT THIS TIME. ON ROOM AIR, NO DISTRESS OR SHORTNESS OF BREATH NOTED. IV ACCESS DEIDRE PICC LINE, INTACT AND PATENT. FALL AND SAFETY MEASURES IN PLACE, BED ALARM ON, BED IN LOW AND LOCK POSITION, CALL LIGHT AND TABLE WITHIN EASY REACH, SIDE RAILS UP X2. WILL CONTINUE TO MONITOR.
[2021-05-24] MEDS: DOXYCYCLINE HYCLATE (100 MG) 100 MG TABLET PO SCH (11:56)
[2021-05-24] MEDS: INSULIN GLARGINE, 100 UNIT/ML CARTRIDGE SQ SCH (11:56)
[2021-05-24] MEDS: LISINOPRIL (10MG) 10 MG TABLET PO SCH (11:57)
[2021-05-24 11:59] VITALS: BP 118/86
[2021-05-24] MEDS: AMLODIPINE BESYLATE 5 MG TABLET PO SCH (11:59)
[2021-05-24] MEDS ORDERED: ACYC400T19 PO (12:05)
[2021-05-24] MEDS ORDERED: DOXY100T2 PO (12:05)
[2021-05-24] MEDS ORDERED: OXYC10TA49 PO (12:05)
[2021-05-24] MEDS ORDERED: Insulin Glargine,Hum SQ (12:05)
[2021-05-24] MEDS ORDERED: INSU100C10 SQ (12:05)
[2021-05-24] MEDS ORDERED: LISI10TA29 PO (12:05)
[2021-05-24] MEDS ORDERED: AZIT250T PO (12:05)
[2021-05-24] MEDS ORDERED: CHLO473M2 MM (12:05)
[2021-05-24] MEDS ORDERED: FLUC100T PO (12:05)
[2021-05-24] MEDS ORDERED: NUT.237L45 PO (12:05)
[2021-05-24] MEDS ORDERED: IMIQ7.5C3 TP (12:05)
[2021-05-24] MEDS ORDERED: DAPS25TA2 PO (12:05)
[2021-05-24] MEDS ORDERED: INSU100V28 SQ (12:05)
[2021-05-24] MEDS: CHLORHEXIDINE GLUCONATE 15 ML UDC MM PRN (12:11)
--- NOTE | 2021-05-24 14:56 | NUR ---
HOT DIP PLATER NOTES PATIENT WAS DISCHARGE IN MEDICAL STABLE CONDITIONS AND GOING TO [facility]. A/O X4. NO S/S OF PAIN NOTED AT THIS TIME. ON ROOM AIR, NO DISTRESS OR SHORTNESS OF BREATH NOTED. IV ACCESS DEIDRE PICC LINE, INTACT AND PATENT. PATIENT LEFT WITH IV FOR IV MEDICATIONS. SKIN ASSESSMENT DONE. ID ARM BAND REMOVED. ALL BELONGINGS CHECKED AND SIGNED. HEALTH TEACHING AND DISCHARGE INSTRUCTIONS GIVEN AND VERBALIZED UNDERSTANDING. PATIENT LEFT UNIT VIA GURNEY WITH NO SIGNS OF DISTRESS, ACCOMPANIED BY EMT. CHARGE NURSE AWARE OF DISCHARGE.
== END 2021-05-24 12:40 | DRG 617 ==
LOC: ER 13:50 → MED 20:08
PROVIDERS: ADMIT Student in an Organized Health Care Education/Training Program; ATTEND Nurse Practitioner Acute Care
PROC: 0JBQ0ZZ Excision of Right Foot Subcutaneous Tissue and Fascia, Open Approach (ICD-10-PCS; principal; 2021-05-11)
PROC: 02HV33Z Insertion of Infusion Device into Superior Vena Cava, Percutaneous Approach (ICD-10-PCS; 2021-05-14)
PROC: B548ZZA Ultrasonography of Superior Vena Cava, Guidance (ICD-10-PCS; 2021-05-14)
PROC: 0Y6X0Z0 Detachment at Right 5th Toe, Complete, Open Approach (ICD-10-PCS; 2021-05-18)
DX: E11.69 Type 2 diabetes mellitus with other specified complication (principal); M86.171 Other acute osteomyelitis, right ankle and foot; E87.1 Hypo-osmolality and hyponatremia; M00.9 Pyogenic arthritis, unspecified; B20 Human immunodeficiency virus [HIV] disease; E11.40 Type 2 diabetes mellitus with diabetic neuropathy, unspecified; E11.621 Type 2 diabetes mellitus with foot ulcer; L97.519 Non-pressure chronic ulcer of other part of right foot with unspecified severity; K21.9 Gastro-esophageal reflux disease without esophagitis; F41.0 Panic disorder [episodic paroxysmal anxiety]; F32.A Depression, unspecified; Z20.822 Contact with and (suspected) exposure to COVID-19; E11.65 Type 2 diabetes mellitus with hyperglycemia; I10 Essential (primary) hypertension; F41.9 Anxiety disorder, unspecified; T63.301S Toxic effect of unspecified spider venom, accidental (unintentional), sequela; Z88.0 Allergy status to penicillin; Z79.4 Long term (current) use of insulin; Z79.899 Other long term (current) drug therapy; R26.9 Unspecified abnormalities of gait and mobility; L03.031 Cellulitis of right toe
CPT/HCPCS: 36415; 73630-TC; 73720-TC; 80048-TC; 80053-TC; 80076-TC; 80202-TC; 82962-TC; 83605-TC; 83735-TC; 84100-TC; 84443-TC; 85025-TC; 85610-TC; 85652-TC; 85730-TC; 86360; 86850-TC; 87040-TC; 87070-TC; 87075-TC; 87081-TC; 88305-TC; 88311-TC; 97116-TC; 97530-TC; A6403; A6407; A9575; C9803; G0378; J0360; J1170; J1815; J2185; J2250; J2270; J2405; J2704; J2765; J3010; J3370; J3490; J7030; J7040; J7050; J7060

== ENCOUNTER 2021-05-24 22:03 | Emergency (ER) | payer OTHER ==
[~2021-05-24] VITALS: Ht 167.6 cm; Wt 63.5 kg
[~2021-05-24 22:03] MED LIST changes: +ACYC400T19 PO; -ALLA266C2 TP; -AMLO-212 PO; -AMLO-61 PO; +AMLO1CAP2 PO; +AZIT250T PO; +CHLO473M2 MM; +DAPS25TA2 PO; +DOXY100T2 PO; -ESCI10TA PO; +FLUC100T PO; -FLUC100T8 PO; -GLIP5TAB13 PO; -HYDR-4384 PO; -HYDR25TA4 PO; +IMIQ7.5C3 TP; +INSU100C10 SQ; +INSU100V28 SQ; +INSU100V7 SQ; +Insulin Glargine,Hum SQ; +LISI10TA29 PO; -LISI40TA13 PO; -MEGE40TA5 PO; +MIRT-90 PO; +NUT.237L45 PO; +OXYC10TA49 PO; -PANT40TA2 PO; +SULF-10 PO; +TEST200V3 IM; +TRAZ-182 PO; -VENL150C2 PO
[2021-05-24 22:36] VITALS: BP 150/83
[2021-05-24] MEDS ORDERED: oxyCODONE/APAP (5/325 MG) 1 UDTAB TABLET ONE (23:28)
[2021-05-24] MEDS ORDERED: oxyCODONE/APAP (5/325 MG) 1 UDTAB TABLET PO ONE (23:30)
[2021-05-24] MEDS ORDERED: SULFAMETH/TRIMETH 800/160 MG 1 UDTAB TABLET ONE (23:54)
--- NOTE | 2021-05-24 23:58 | NUR ---
Patient discharged to home in stable condition. Written and verbal after care instructions given. Patient verbalizes understanding of instruction.
[2021-05-25] MEDS ORDERED: EMTRICITABINE/TENOFOVIR 1 TAB PO SCH
[2021-05-25] MEDS ORDERED: SULFAMETH/TRIMETH 800/160 MG 1 UDTAB TABLET PO ONE
== END 2021-05-24 23:59 | disposition home or self-care (01) ==
LOC: ER 22:12
DX: G89.18 Other acute postprocedural pain (principal); Z79.4 Long term (current) use of insulin; Z79.899 Other long term (current) drug therapy; Z88.0 Allergy status to penicillin

== ENCOUNTER 2021-05-29 13:14 | Inpatient (IN) | payer OTHER ==
[~2021-05-29] VITALS: Ht 167.6 cm; Wt 64.0 kg
[~2021-05-29 13:14] MED LIST changes: -INSU100V7 SQ
--- NOTE | 2021-05-29 13:14 | NUR ---
BIBSELF C/O OF RUE PAIN AND RIGHT FOOT PAIN, RECENT RIGHT LITTLE TOE AMPUTATION 05/18/[address] WILLIS. BREATHING IS EVEN AND UNLABORED. BLANKET PROVIDED FOR COMFORT.
--- NOTE | 2021-05-29 13:50 | NUR ---
DEIDRE PICCLINE PATENT AND INTACT. DRESSING CHANGED KEPT C/D/I.
--- NOTE | 2021-05-29 13:53 | NUR ---
ZULAY AT PT'S BEDSIDE AND EXAMINED PT'S R 5TH TOE AMPUTATATION.
--- NOTE | 2021-05-29 13:56 | NUR ---
BS 438; ZULAY VASQUEZ AWARE
[2021-05-29] MEDS ORDERED: INSULIN REGULAR, HUMAN 100 UNIT/ML 10 ML VIAL SQ ONE (14:00)
[2021-05-29] MEDS ORDERED: DOXYCYCLINE 100 MG in IV D5W 100 ML IV ONE (14:00)
[2021-05-29] MEDS ORDERED: INSULIN REGULAR, HUMAN 100 UNIT/ML 10 ML VIAL ONE (14:08)
--- NOTE | 2021-05-29 14:10 | NUR ---
LAB DRAWN FROM R UPPER ARM PICC LINE AND SENT TO LAB
[2021-05-29 14:25] LABS: BASOPHILS % (AUTO) 0.5 % (0.0-2.0); EOSINOPHILS % (AUTO) 1.9 % (0.0-6.0); HEMATOCRIT 33 % (39-51); HEMOGLOBIN 11.3 g/dL (13.5-17.5); LYMPHOCYTES # (AUTO) 0.6 K/uL (0.8-4.8); LYMPHOCYTES % (AUTO) 15.9 % (20.0-44.0); MEAN CORPUSCULAR HGB CONC 34 g/dl (31.0-36.0); MEAN CORPUSCULAR VOLUME 85 fL (80-96); MONOCYTES # (AUTO) 0.4 K/uL (0.1-1.30); MONOCYTES % (AUTO) 11.9 % (2.0-12.0); NEUTROPHILS # (AUTO) 2.4 K/uL (1.8-8.9); NEUTROPHILS % (AUTO) 69.8 % (43.0-81.0); PLATELET COUNT (AUTO) 233 K/uL (150-450); RED BLOOD CELL COUNT(AUTO) 3.92 MIL/uL (4.5-6.0); WHITE BLOOD COUNT (AUTO) 3.5 K/uL (4.3-11.0)
[2021-05-29] MEDS ORDERED: TRAZODONE 50 MG TABLET PO PRN (14:30)
--- NOTE | 2021-05-29 14:50 | NUR ---
ADMISSION PACKET SUBMITTED. BED REQUESTED.
[2021-05-29] MEDS ORDERED: ZOLPIDEM TARTRATE 5 MG TABLET PO PRN (15:00)
[2021-05-29] MEDS ORDERED: MAGNESIUM HYDROXIDE 30 ML UDC PO PRN (15:00)
[2021-05-29] MEDS ORDERED: ACETAMINOPHEN 325 MG TABLET PO PRN (15:00)
[2021-05-29] MEDS ORDERED: MAG HYDROX/AL HYDROX/SIMETH 30 ML UDC PO PRN (15:00)
[2021-05-29] MEDS ORDERED: ONDANSETRON HCL/PF 4 MG/2 ML VIAL IVP PRN (15:00)
[2021-05-29 15:26] LABS: ALANINE AMINOTRANSFERASE 34 U/L (12-78); ALBUMIN 3.6 g/dL (3.4-5.0); ALKALINE PHOSPHATASE 152 U/L (46-116); ASPARTATE AMINOTRANSFERASE 21 U/L (15-37); BILIRUBIN,DIRECT 0.1 mg/dL (0.0-0.2); BILIRUBIN,TOTAL 0.3 mg/dL (0.2-1.0); CALCIUM, SERUM 9.3 mg/dL (8.5-10.1); CARBON DIOXIDE 28 mmol/L (21-32); CHLORIDE 97 mmol/L (98-107); CREATININE 1.5 mg/dL (0.6-1.3); POTASSIUM 4.1 mmol/L (3.5-5.1); SODIUM SERUM 132 mmol/L (136-145); TOTAL PROTEIN, SERUM 7.9 g/dL (6.4-8.2); UREA NITROGEN, BLOOD 28 mg/dL (7-18)
[2021-05-29 15:28] LABS: GLUCOSE 385 mg/dL (74-106)
[2021-05-29 15:59] LABS: BAND % (MANUAL) 8 % (0.0-5.0); EOSINOPHILS % (MANUAL) 2 % (0-4); LYMPHOCYTES % (MANUAL) 10 % (16-48); MONOCYTES % (MANUAL) 14 % (0-11.0); NEUTROPHILS % (MANUAL) 66 (42-76)
[2021-05-29] MEDS ORDERED: DEXTROSE 50%-WATER 50 ML DISP.SYRIN IV PRN (16:30)
--- NOTE | 2021-05-29 16:50 | NUR ---
COVID TEST COLLECTED AND SENT
[2021-05-29] MEDS ORDERED: Z GUARD REMEDY 4 OZ OINT TP PRN (17:00)
[2021-05-29] MEDS: GABAPENTIN 100 MG CAPSULE PO SCH ×2 (17:00→17:10)
[2021-05-29] MEDS: METFORMIN 500 MG TABLET PO SCH (17:00)
[2021-05-29] MEDS: IV NS 0.9% 1,000 ML IV PRN (17:11)
[2021-05-29] MEDS: INSULIN REGULAR, HUMAN 100 UNIT/ML 3 ML VIAL SQ PRN (17:31)
[2021-05-29] MEDS: BLOOD SUGAR DIAGNOSTIC 1 EACH STRIP IN SCH ×2 (17:33→21:06)
--- NOTE | 2021-05-29 17:57 | NUR ---
ROOM 306-2
[2021-05-29] MEDS ORDERED: ATORVASTATIN 10 MG TABLET PO SCH (18:00)
--- NOTE | 2021-05-29 18:27 | NUR ---
Patient arrived via gurney at 1827pm from ER, with admiting diagnosis right foot osteomyelitis. Patient AO X 4, able to make needs known, can follow simple commands, no apparent distress noted, breathing even and unlabored. Admitting hospitalist made aware of the patient's arrival. Patient's vital signs within normal limits, no complained of facial numbness or weakness, no extremity numbness or weakness at this time. Patient oriented with use of call lights, use of bed control, use of telephone and tv control, also introduces SENIOR PLANNING MANAGER and RN assigned for today, verbalized understanding and gratitude. Patient preferred not to have skin assessment at this time. All belongings written in the inventory list. All needs attended, kept clean and dry, call light left within reach, safety precautions in place, brakes locked, side rails up X 2, will endorse to next shift for continuity of care.
[2021-05-29 18:39] LABS: BILIRUBIN,URINE NEGATIVE (NEGATIVE); COLOR,URINE YELLOW (YELLOW); LEUKOCYTE ESTERASE ,URINE NEGATIVE (NEGATIVE); NITRITE, URINE NEGATIVE (NEGATIVE); PROTEIN,URINE NEGATIVE (NEGATIVE); UGLUCOSE >=1000 mg/dL (NEGATIVE); UROBILINOGEN,URINE 0.2 EU/dL (0.2)
[2021-05-29 18:48] LABS: BACTERIA,URINE None seen /HPF (None Seen); RBC,URINE 0-2 /HPF (0-2); SQUAMOUS EPITHELIAL CELL,UR 0-2 /HPF (None Seen); WBC,URINE 0-2 /HPF (0-3)
--- NOTE | 2021-05-29 19:30 | NUR ---
RN NOTE PT INTERMITTENTLY SLEEPING, EASILY AROUSABLE, A/OX4, DENIES PAIN AT THIS TIME. RESPIRATIONS EVEN/UNLABORED. IV SITE: DEIDRE PICC LINE INTACT/PATENT, WITH DRESSING C/D/I. INFUSING NS @75ML/HR. KARI WELL. SKIN ASSESSED, WITH S/P R-FT 5TH TOE AMPUTATION, INCISION SITE WITH STITCHES, NO REDNESS/TENDERNESS NOTED ON SITE. CLEANSED WITH NS, COVERED WITH DRY DRESSING AND CLARA WRAPPED. PT IN NO ACUTE DISTRESS. SAFETY MEASURES IN PLACE, BED IN LOWEST LOCKED POSITION, S/R UPX2, CALL LIGHT WITHIN REACH. WILL CONT TO MONITOR.
[2021-05-29] MEDS: DOXYCYCLINE 100 MG in IV D5W 100 ML IV SCH (20:57)
[2021-05-29] MEDS: INSULIN GLARGINE, 100 UNIT/ML CARTRIDGE SQ SCH (20:59)
[2021-05-29] MEDS: *INSULIN REGULAR(HUMULIN R)HUM 100 UNIT/ML VIAL SQ PRN (21:00)
[2021-05-29] MEDS: HYDROCODONE/APAP 5/325MG TABLET PO PRN (21:05)
[2021-05-29] MEDS: ATORVASTATIN 10 MG TABLET PO SCH (21:05)
[2021-05-29] MEDS: LISINOPRIL (10MG) 10 MG TABLET PO SCH (21:06)
[2021-05-29] MEDS: MIRTAZAPINE 15 MG TABLET PO SCH (22:13)
[2021-05-29 23:36] VITALS: BP 132/79
[2021-05-30] MEDS: HYDROCODONE/APAP 5/325MG TABLET PO PRN ×3 (05:21→17:27)
[2021-05-30] MEDS: BLOOD SUGAR DIAGNOSTIC 1 EACH STRIP IN SCH ×4 (06:26→21:10)
[2021-05-30] MEDS: INSULIN REGULAR, HUMAN 100 UNIT/ML 3 ML VIAL SQ PRN ×3 (06:29→17:27)
--- NOTE | 2021-05-30 07:00 | NUR ---
RN NOTE PT RESTING IN BED, EASILY AROUSABLE TO STIMULI, DENIES PAIN AT THIS TIME. IV SITE DEIDRE PICC INTACT/PATENT, ONGOING NS @75ML/HR. PT IN NO ACUTE DISTRESS. SAFETY MEASURES MAINTAINED. ALL NEEDS ATTENDED TO.
--- NOTE | 2021-05-30 07:10 | NUR ---
RN OPENING NOTE RECEIVED PATIENT IN BED. A/O X4. ON ROOM AIR, TOLERATING WELL. DENIES SOB. IN NO APPARENT DISTRESS. ABLE TO MAKE NEEDS KNOWN. DEIDRE PICC LINE, RUNNING AT 75 ML/HR, INTACT AND PATENT. SAFETY MEASURES MAINTAINED. BED IN LOWEST POSITION, BRAKES LOCKED. SIDE RAILS UP X2. CALL LIGHT WITHIN REACH. WILL CONTINUE PLAN OF CARE.
[2021-05-30] MEDS: IV NS 0.9% 1,000 ML IV PRN (07:34)
[2021-05-30 08:00] VITALS: BP 110/62
[2021-05-30] MEDS: GABAPENTIN 100 MG CAPSULE PO SCH ×3 (09:25→16:54)
[2021-05-30] MEDS: METFORMIN 500 MG TABLET PO SCH ×2 (09:25→16:54)
[2021-05-30] MEDS: LISINOPRIL (10MG) 10 MG TABLET PO SCH ×2 (09:26→21:00)
[2021-05-30] MEDS: SULFAMETH/TRIMETH 800/160 MG 1 UDTAB TABLET PO SCH (09:26)
[2021-05-30] MEDS: ACYCLOVIR 200 MG CAPSULE PO SCH (09:26)
[2021-05-30] MEDS: DAPSONE 25 MG TABLET PO SCH (09:28)
[2021-05-30] MEDS: FLUCONAZOLE (100 MG) 100 MG TABLET PO SCH (09:29)
[2021-05-30] MEDS: DOXYCYCLINE 100 MG in IV D5W 100 ML IV SCH ×2 (09:31→20:57)
[2021-05-30] MEDS: INSULIN GLARGINE, 100 UNIT/ML CARTRIDGE SQ SCH ×2 (09:33→21:12)
[2021-05-30 09:51] LABS: BASOPHILS % (AUTO) 0.4 % (0.0-2.0); EOSINOPHILS % (AUTO) 1.5 % (0.0-6.0); HEMATOCRIT 34 % (39-51); HEMOGLOBIN 11.6 g/dL (13.5-17.5); LYMPHOCYTES # (AUTO) 0.6 K/uL (0.8-4.8); LYMPHOCYTES % (AUTO) 15.4 % (20.0-44.0); MEAN CORPUSCULAR HGB CONC 34 g/dl (31.0-36.0); MEAN CORPUSCULAR VOLUME 85 fL (80-96); MONOCYTES # (AUTO) 0.4 K/uL (0.1-1.30); MONOCYTES % (AUTO) 9.8 % (2.0-12.0); NEUTROPHILS # (AUTO) 2.7 K/uL (1.8-8.9); NEUTROPHILS % (AUTO) 72.9 % (43.0-81.0); PLATELET COUNT (AUTO) 229 K/uL (150-450); RED BLOOD CELL COUNT(AUTO) 4.01 MIL/uL (4.5-6.0); WHITE BLOOD COUNT (AUTO) 3.8 K/uL (4.3-11.0)
[2021-05-30 11:07] LABS: BILIRUBIN,TOTAL 0.3 mg/dL (0.2-1.0); CALCIUM, SERUM 8.4 mg/dL (8.5-10.1); CREATININE 1.2 mg/dL (0.6-1.3); MAGNESIUM 1.6 mg/dL (1.8-2.4); PHOSPHORUS 3.4 mg/dL (2.5-4.9); POTASSIUM 3.7 mmol/L (3.5-5.1); TOTAL PROTEIN, SERUM 6.9 g/dL (6.4-8.2)
[2021-05-30 13:01] LABS: EOSINOPHILS % (MANUAL) 2 % (0-4); LYMPHOCYTES % (MANUAL) 15 % (16-48); MONOCYTES % (MANUAL) 9 % (0-11.0); NEUTROPHILS % (MANUAL) 74 (42-76)
[2021-05-30 16:00] VITALS: BP 101/60
--- NOTE | 2021-05-30 18:08 | NUR ---
RN CLOSING NOTE PATIENT RESTING IN BED. A/O X4. ON ROOM AIR, TOLERATING WELL. DENIES SOB. NO S/S OF RESPIRATORY DISTRESS. DUE MEDS GIVEN ORDERED. ALL NEEDS HAVE BEEN MET AND ATTENDED. DEIDRE PICC LINE, RUNNING AT 75 ML/HR, INTACT AND PATENT. SAFETY MEASURES MAINTAINED. BED IN LOWEST POSITION, BRAKES LOCKED. SIDE RAILS UP X2. KEPT CALL LIGHT WITHIN REACH. WILL ENDORSE CONTINUITY OF CARE TO INCOMING SHIFT.
--- NOTE | 2021-05-30 19:34 | NUR ---
MS RN OPENING NOTE PATIENT RECEIVED AWAKE IN BED. PATIENT A/OX4. NO S/S OF DISTRESS, BREATHING SYMMETRICAL. SAFETY MEASURES FOLLOWED: BED AT LOWEST POSITION, RAILS UP X2, CALL MARTIN WITHIN REACH. WILL CONTINUE TO MONITOR PATIENT.
[2021-05-30 20:43] VITALS: BP 96/59
[2021-05-30] MEDS: MIRTAZAPINE 15 MG TABLET PO SCH (21:04)
[2021-05-30] MEDS: ATORVASTATIN 10 MG TABLET PO SCH (21:04)
[2021-05-30] MEDS: *INSULIN REGULAR(HUMULIN R)HUM 100 UNIT/ML VIAL SQ PRN (21:13)
[2021-05-31] MEDS: HYDROCODONE/APAP 5/325MG TABLET PO PRN ×2 (01:32→09:16)
[2021-05-31] MEDS: INSULIN REGULAR, HUMAN 100 UNIT/ML 3 ML VIAL SQ PRN (06:10)
--- NOTE | 2021-05-31 06:33 | NUR ---
MS RN CLOSING NOTE PATIENT IS ASLEEP IN BED. A/OX4. NO S/S OF DISTRESS, BREATHING SYMMETRICAL. CAP REFILL <3SECS. SAFETY MEASURES IN PLACE: BED AT LOWEST POSITION, RAILS UP X2, CALL MARTIN WITHIN REACH. WILL ENDORSE TO NEXT SHIFT FOR RYAN.
[2021-05-31] MEDS: BLOOD SUGAR DIAGNOSTIC 1 EACH STRIP IN SCH ×4 (06:43→21:21)
--- NOTE | 2021-05-31 07:00 | NUR ---
MR RN OPENING NOTES RECEIVED Pt ASLEEP IN BED. EASILY AROUSABLE. Pt IS A/Ox4, BREATHING IS EVEN AND UNLABORED ON ROOM AIR. NO SIGNS OF DISTRESS AT THIS TIME. NO COMPLAINTS OF PAIN MADE AT THIS TIME. SAFETY MEASURES IN PLACE: BED IS LOCKED AND IN LOWEST POSITION, SIDE RAILS UP X 2, CALL LIGHT AND BEDSIDE TABLE AR WITHIN REACH. WILL CONTINUE TO MONITOR THROUGHOUT THE SHIFT.
[2021-05-31 08:00] VITALS: BP 114/71
[2021-05-31] MEDS: DAPSONE 25 MG TABLET PO SCH (08:53)
[2021-05-31] MEDS: FLUCONAZOLE (100 MG) 100 MG TABLET PO SCH (08:53)
[2021-05-31] MEDS: GABAPENTIN 100 MG CAPSULE PO SCH ×4 (08:54→17:00)
[2021-05-31] MEDS: SULFAMETH/TRIMETH 800/160 MG 1 UDTAB TABLET PO SCH (08:54)
[2021-05-31] MEDS: LISINOPRIL (10MG) 10 MG TABLET PO SCH ×2 (08:54→21:07)
[2021-05-31] MEDS: METFORMIN 500 MG TABLET PO SCH ×2 (08:55→16:25)
[2021-05-31] MEDS: ACYCLOVIR 200 MG CAPSULE PO SCH (08:58)
[2021-05-31] MEDS: DOXYCYCLINE 100 MG in IV D5W 100 ML IV SCH ×2 (09:39→20:16)
[2021-05-31] MEDS: INSULIN GLARGINE, 100 UNIT/ML CARTRIDGE SQ SCH ×2 (09:40→21:51)
--- NOTE | 2021-05-31 11:10 | NUR ---
SS Consult: Pt. Is a 61-year-old male. Pt. demonstrates adequate insight to the reason for hospitalization. Per pt., he was brought to hospital by friend due to severe foot pain. Per pt., he has right foot pain. Pt. stated that he hurts to walk and stand. Pt. was oriented x3 and alert. During interview, pt. was capable of following directions, did not make eye-contact, and appeared groomed. Pt.s speech was at a low rate. Pt.s mood was elevated. SW explored pt.s hx of mental health and substance abuse. Pt. reported no hx of mental health, substance abuse, suicidal or homicidal. Pt. denies auditory hallucinations, visual hallucinations, paranoia, or delusions. SW explored pt.s living situation. Per pt., he has been living with a friend, Blu Dumont [[address] (no other information was given)]. Pt. stated that he does not know if he can go back to his friends place but mentioned that friend might pick him up once discharged. Pt. did not want to answer any further questions. Plan: SW provided available resources and pt. denied. Per EMR, pt. can go home to roommate once discharged.
--- NOTE | 2021-05-31 11:51 | NUR ---
MS RN NOTES- AM LABS Pt REFUSED AM LABS FOR THE SECOND TIME TODAY.
[2021-05-31] MEDS: *INSULIN REGULAR(HUMULIN R)HUM 100 UNIT/ML VIAL SQ PRN ×2 (12:42→17:31)
[2021-05-31] MEDS: GLUCERNA SHAKE 237 ML CAN PO SCH ×2 (13:26→17:26)
[2021-05-31] MEDS ORDERED: AZITHROMYCIN 250 MG TABLET PO SCH (14:30)
--- NOTE | 2021-05-31 14:52 | NUR ---
MS RN NOTES Pt REFUSED BLOOD DRAW FOR LABS
[2021-05-31 16:00] VITALS: BP 111/68
[2021-05-31] MEDS: MORPHINE SULFATE INJ 2 MG/ML DISP.SYRIN IV PRN ×2 (16:25→21:07)
--- NOTE | 2021-05-31 18:39 | NUR ---
MS RN CLOSING NOTE Pt IS RESTING IN BED. A/OX4. NO S/S OF DISTRESS, BREATHING SYMMETRICAL. SAFETY MEASURES IN PLACE: BED IS LOCKED AND IN LOWEST POSITION, SIDE RAILS UP X2, CALL LIGHT AND BED SIDE TABLE WITHIN REACH. WILL ENDORSE TO ONCOMING SHIFT.
--- NOTE | 2021-05-31 19:46 | NUR ---
MR RN OPENING NOTES RECEIVED Pt AWAKE IN BED Pt IS A/Ox4, BREATHING IS EVEN AND UNLABORED ON ROOM AIR. NO SIGNS OF DISTRESS AT THIS TIME. COMPLAINTS OF PAIN MADE, 01/10. SAFETY MEASURES IN PLACE: BED IS LOCKED AND IN LOWEST POSITION, SIDE RAILS UP X 2, CALL LIGHT AND BEDSIDE TABLE AR WITHIN REACH. WILL CONTINUE TO MONITOR THROUGHOUT THE SHIFT.
[2021-05-31 20:00] VITALS: BP 128/72
[2021-05-31] MEDS: ATORVASTATIN 10 MG TABLET PO SCH (21:06)
[2021-05-31] MEDS: MIRTAZAPINE 15 MG TABLET PO SCH (21:06)
[2021-06-01] MEDS: MORPHINE SULFATE INJ 2 MG/ML DISP.SYRIN IV PRN ×3 (02:34→16:43)
[2021-06-01] MEDS: BLOOD SUGAR DIAGNOSTIC 1 EACH STRIP IN SCH ×3 (05:58→16:43)
--- NOTE | 2021-06-01 06:18 | NUR ---
MS RN CLOSING NOTE Pt IS ASLEEP IN BED, EASILY AROUSABLE. A/OX4. NO S/S OF DISTRESS, Pt IS ON ROOM AIR AND TOLERATING WELL. R PICC LIVE IS PATENT AND INTACT. NO COMPLAINTS OF PAIN OR SIGNS OF DISTRESS AT THIS TIME. SAFETY MEASURES IN PLACE: BED IS LOCKED AND IN LOWEST POSITION, SIDE RAILS UP X2, CALL LIGHT AND BED SIDE TABLE WITHIN REACH. WILL ENDORSE TO ONCOMING SHIFT.
[2021-06-01] MEDS: INSULIN REGULAR, HUMAN 100 UNIT/ML 3 ML VIAL SQ PRN ×3 (06:45→16:44)
[2021-06-01] MEDS: IV NS 0.9% 1,000 ML IV PRN (07:23)
[2021-06-01] MEDS ORDERED: LIDOCAINE VISCOUS 2% UD 15 ML UDC MM PRN (07:30)
--- NOTE | 2021-06-01 07:30 | NUR ---
MR RN OPENING NOTES RECEIVED PT ASLEEP IN BED. EASILY AWAKEN BY VERBAL AND TACTILE STIMULI. PT IS A/Ox4, BREATHING IS EVEN AND UNLABORED ON ROOM AIR. NO SIGNS OF DISTRESS AT THIS TIME. NO COMPLAINTS OF PAIN MADE AT THIS TIME. WITH DRY AND INTACT DRESSING NOTED ON RIGHT FOOT. SAFETY MEASURES IN PLACE: BED IS LOCKED AND IN LOWEST POSITION, SIDE RAILS UP X 2, CALL LIGHT AND BEDSIDE TABLE AR WITHIN REACH. WILL CONTINUE TO MONITOR PATIENT ACCORDINGLY.
[2021-06-01 08:00] VITALS: BP 121/77
[2021-06-01] MEDS: METFORMIN 500 MG TABLET PO SCH ×2 (08:26→16:43)
[2021-06-01] MEDS: DAPSONE 25 MG TABLET PO SCH (08:26)
[2021-06-01] MEDS: ACYCLOVIR 200 MG CAPSULE PO SCH (08:26)
[2021-06-01 08:27] VITALS: BP 121/77
[2021-06-01] MEDS: GABAPENTIN 100 MG CAPSULE PO SCH ×3 (08:27→16:43)
[2021-06-01] MEDS: FLUCONAZOLE (100 MG) 100 MG TABLET PO SCH (08:27)
[2021-06-01] MEDS: SULFAMETH/TRIMETH 800/160 MG 1 UDTAB TABLET PO SCH (08:27)
[2021-06-01] MEDS: LISINOPRIL (10MG) 10 MG TABLET PO SCH (08:27)
[2021-06-01] MEDS: GLUCERNA SHAKE 237 ML CAN PO SCH ×2 (08:29→17:06)
[2021-06-01] MEDS: DOXYCYCLINE 100 MG in IV D5W 100 ML IV SCH (08:31)
[2021-06-01 08:54] LABS: BASOPHILS % (AUTO) 0.4 % (0.0-2.0); EOSINOPHILS % (AUTO) 1.4 % (0.0-6.0); HEMATOCRIT 36 % (39-51); HEMOGLOBIN 12.1 g/dL (13.5-17.5); LYMPHOCYTES # (AUTO) 0.8 K/uL (0.8-4.8); LYMPHOCYTES % (AUTO) 13.2 % (20.0-44.0); MEAN CORPUSCULAR HGB CONC 33 g/dl (31.0-36.0); MEAN CORPUSCULAR VOLUME 85 fL (80-96); MONOCYTES # (AUTO) 0.7 K/uL (0.1-1.30); MONOCYTES % (AUTO) 11.9 % (2.0-12.0); NEUTROPHILS # (AUTO) 4.3 K/uL (1.8-8.9); NEUTROPHILS % (AUTO) 73.1 % (43.0-81.0); PLATELET COUNT (AUTO) 268 K/uL (150-450); RED BLOOD CELL COUNT(AUTO) 4.26 MIL/uL (4.5-6.0); WHITE BLOOD COUNT (AUTO) 5.9 K/uL (4.3-11.0)
[2021-06-01 09:04] LABS: CALCIUM, SERUM 8.4 mg/dL (8.5-10.1); CREATININE 1.2 mg/dL (0.6-1.3); POTASSIUM 3.8 mmol/L (3.5-5.1)
[2021-06-01] MEDS: INSULIN GLARGINE, 100 UNIT/ML CARTRIDGE SQ SCH (09:14)
--- NOTE | 2021-06-01 14:22 | NUR ---
RN NOTES PER DR. SALTER, CTA OF LOWER EXTREMITIES WILL BE DONE OUTPATIENT. ORDER CANCELLED.
--- NOTE | 2021-06-01 15:32 | NUR ---
RN NOTES PRESCRIPTION WERE CALLED IN TO PATIENT'S PREFFERED PHARMACY AT [facility] [phone], SPOKE TO ELIEZER.
[2021-06-01 16:10] LABS: BAND % (MANUAL) 7 % (0.0-5.0); LYMPHOCYTES % (MANUAL) 17 % (16-48); MONOCYTES % (MANUAL) 12 % (0-11.0); NEUTROPHILS % (MANUAL) 64 (42-76)
--- NOTE | 2021-06-01 17:25 | NUR ---
MS EGGS INSPECTOR NOTES DISCHARGED PATIENT IN STABLE CONDITION. VS WITHIN NORMAL LIMITS. DISCHARGE INSTRUCTIONS AND FOLLOW UP DISCUSSED WITH THE PATIENT. PATIENT VERBALIZED UNDERSTANDING. IV ACCESS REMOVED, COVERED WITH GAUZE, NO BLEEDING NOTED. ARMBAND REMOVED. BELONGINGS ACCOUNTED AND SIGNED FOR. WHEELED TO LOBBY SAFELY ACCOMPANIED BY INES NELSON). LEFT UNIT IN STABLE CONDITION. MD AND CHARGE NURSE AWARE OF DISCHARGE.
[2021-06-01] MEDS ORDERED: DOXYCYCLINE HYCLATE (100 MG) 100 MG TABLET PO SCH (21:00)
[2021-06-28] MEDS ORDERED: Medication Not On Formulary EA (Testosterone Cypionate 200 MG) IM SCH (09:00)
== END 2021-06-01 17:30 | DRG 638 ==
LOC: ER 13:18 → TRANSITION 15:52 → MED 18:14
PROVIDERS: ADMIT Internal Medicine; ATTEND Family Medicine
DX: E11.69 Type 2 diabetes mellitus with other specified complication (principal); M86.171 Other acute osteomyelitis, right ankle and foot; B20 Human immunodeficiency virus [HIV] disease; E87.1 Hypo-osmolality and hyponatremia; M00.9 Pyogenic arthritis, unspecified; L03.031 Cellulitis of right toe; Z20.822 Contact with and (suspected) exposure to COVID-19; E11.628 Type 2 diabetes mellitus with other skin complications; D72.819 Decreased white blood cell count, unspecified; F32.A Depression, unspecified; I10 Essential (primary) hypertension; E11.65 Type 2 diabetes mellitus with hyperglycemia; K21.9 Gastro-esophageal reflux disease without esophagitis; Z79.4 Long term (current) use of insulin; Z88.0 Allergy status to penicillin; Z79.899 Other long term (current) drug therapy
CPT/HCPCS: 36415; 80048-TC; 80053-TC; 80076-TC; 81001; 82962-TC; 83605-TC; 83735-TC; 84100-TC; 84484-TC; 85025-TC; 85730-TC; 87040-TC; 87081-TC; 87086-TC; 93926-TC; 93971-TC; G0378; J1815; J2270; J3490; J7030; J7060

== ENCOUNTER 2021-06-19 10:47 | Emergency (ER) | payer OTHER ==
[~2021-06-19] VITALS: Ht 167.6 cm; Wt 61.2 kg
[2021-06-19 11:42] VITALS: BP 132/80
--- NOTE | 2021-06-19 11:42 | NUR ---
Patient discharged to home in stable condition. Written and verbal after care instructions given. Patient verbalizes understanding of instruction.
== END 2021-06-19 11:43 | disposition home or self-care (01) ==
LOC: ER 10:49
DX: Z48.00 Encounter for change or removal of nonsurgical wound dressing (principal); Z89.421 Acquired absence of other right toe(s); K21.9 Gastro-esophageal reflux disease without esophagitis; I10 Essential (primary) hypertension; E11.8 Type 2 diabetes mellitus with unspecified complications

== ENCOUNTER 2021-06-22 10:30 | Outpatient (CLI) | payer OTHER | END 2021-06-22 23:59 | disposition home or self-care (01) | LOC: WOU 10:30 | PROVIDERS: ATTEND Podiatrist Foot & Ankle Surgery | DX: Z47.81 Encounter for orthopedic aftercare following surgical amputation (principal); E11.40 Type 2 diabetes mellitus with diabetic neuropathy, unspecified; Z79.4 Long term (current) use of insulin; R26.2 Difficulty in walking, not elsewhere classified; M79.671 Pain in right foot; Z89.421 Acquired absence of other right toe(s) | CPT/HCPCS: G0463 ==

== ENCOUNTER 2021-12-13 14:33 | Emergency (ER) | payer OTHER ==
[~2021-12-13] VITALS: Ht 170.2 cm; Wt 63.5 kg
[2021-12-13 14:42] VITALS: BP 170/85
--- NOTE | 2021-12-13 14:42 | NUR ---
severe right shoulder pain (no trauma) and left index finger infected paronychia
[2021-12-13] MEDS ORDERED: NAPR500T6 PO (15:59)
[2021-12-13] MEDS ORDERED: CLIN300C12 PO (15:59)
[2021-12-13] MEDS ORDERED: IBUPROFEN 600 MG TABLET ONE (16:12)
--- NOTE | 2021-12-13 16:13 | NUR ---
Patient discharged to home in stable condition. Written and verbal after care instructions given. Patient verbalizes understanding of instruction.
[2021-12-13] MEDS ORDERED: IBUPROFEN 600 MG TABLET PO ONE (16:30)
== END 2021-12-13 16:14 | disposition home or self-care (01) ==
LOC: ER 14:37
DX: L03.012 Cellulitis of left finger (principal); I10 Essential (primary) hypertension; K21.9 Gastro-esophageal reflux disease without esophagitis; E11.9 Type 2 diabetes mellitus without complications; Z79.899 Other long term (current) drug therapy

== ENCOUNTER 2022-03-29 05:56 | Inpatient (IN) | payer OTHER ==
[~2022-03-29] VITALS: Ht 170.2 cm; Wt 56.5 kg
[~2022-03-29 05:56] MED LIST changes: +CLIN300C12 PO; +NAPR500T6 PO
--- NOTE | 2022-03-29 06:25 | NUR ---
BIBSELF C/O COUGH X1 WEEK. +400BG TODAY. +BURNING UPON URINATION X2 DAYS. A/OX4. TOLERATING R/A WELL WITH NO RESP DISTRESS. SAFETY MEASURES IN PLACE.
[2022-03-29] MEDS ORDERED: IV NS 0.9% 1,000 ML IV ONE ×3 (07:00→10:00)
--- NOTE | 2022-03-29 07:10 | NUR ---
NURSE ADVOCATE AT PT'S BEDSIDE
--- NOTE | 2022-03-29 07:12 | NUR ---
COVID ANTIGEN AND INFLUENZA SWAB COLLECTED AND SENT TO LAB
--- NOTE | 2022-03-29 07:14 | NUR ---
Note royce in EDM - 03/29/22 at 0718 by MAIKEL BIBSELF C/O COUGH X1 WEEK. +400BG TODAY. +BURNING UPON URINATION X2 DAYS. A/OX4. TOLERATING R/A WELL WITH NO RESP DISTRESS. SAFETY MEASURES IN PLACE.
--- NOTE | 2022-03-29 07:19 | NUR ---
OFFERED PT URINE CUP; WILL F/U WITH URINE SAMPLE COLLECTION
--- NOTE | 2022-03-29 07:24 | NUR ---
REHAB LIAISON AT PT'S BEDSIDE
[2022-03-29 07:27] LABS: BASOPHILS % (AUTO) 0.7 % (0.0-2.0); EOSINOPHILS % (AUTO) 1.8 % (0.0-6.0); HEMATOCRIT 32 % (39-51); HEMOGLOBIN 10.9 g/dL (13.5-17.5); LYMPHOCYTES # (AUTO) 0.4 K/uL (0.8-4.8); LYMPHOCYTES % (AUTO) 13.1 % (20.0-44.0); MEAN CORPUSCULAR HGB CONC 34 g/dl (31.0-36.0); MEAN CORPUSCULAR VOLUME 85 fL (80-96); MONOCYTES # (AUTO) 0.4 K/uL (0.1-1.30); MONOCYTES % (AUTO) 12.4 % (2.0-12.0); PLATELET COUNT (AUTO) 168 K/uL (150-450); RED BLOOD CELL COUNT(AUTO) 3.84 MIL/uL (4.5-6.0); WHITE BLOOD COUNT (AUTO) 2.8 K/uL (4.3-11.0)
--- NOTE | 2022-03-29 07:47 | NUR ---
PT IN BED AWAKE AND VERBALLY RESPONSIVE, NOT IN ACUTE DISTRESS. ABLE TO MAKE NEEDS KNOWN. PROVIDED WARM BLANKET.
--- NOTE | 2022-03-29 07:50 | NUR ---
URINE SAMPLE COLLECTED AND SENT TO LAB
[2022-03-29 07:51] LABS: ALBUMIN 3.1 g/dL (3.4-5.0); BILIRUBIN,TOTAL 0.3 mg/dL (0.2-1.0); CREATININE 1.2 mg/dL (0.6-1.3); POTASSIUM 4.1 mmol/L (3.5-5.1); TOTAL PROTEIN, SERUM 7.6 g/dL (6.4-8.2)
--- NOTE | 2022-03-29 08:10 | NUR ---
GLUCOSE 448, DR GARY MADE AWARE
[2022-03-29 09:06] LABS: BILIRUBIN,URINE NEGATIVE (NEGATIVE); COLOR,URINE YELLOW (YELLOW); LEUKOCYTE ESTERASE ,URINE NEGATIVE (NEGATIVE); NITRITE, URINE NEGATIVE (NEGATIVE); PROTEIN,URINE NEGATIVE (NEGATIVE); UGLUCOSE >=1000 mg/dL (NEGATIVE); UROBILINOGEN,URINE 0.2 EU/dL (0.2)
--- NOTE | 2022-03-29 09:33 | NUR ---
BS 331; DR GARY MADE AWARE. OK FOR PT TO HAVE NS IV
[2022-03-29 09:55] LABS: BACTERIA,URINE None seen /HPF (None Seen); SQUAMOUS EPITHELIAL CELL,UR None Seen /HPF (None Seen); WBC,URINE 0-2 /HPF (0-3)
[2022-03-29] MEDS ORDERED: AZITHROMYCIN 250 MG TABLET PO ONE (10:30)
[2022-03-29] MEDS ORDERED: CEFTRIAXONE 1GM BAG (ER ONLY) 1 GM/50 ML PIGGYBACK IV ONE (10:30)
[2022-03-29] MEDS ORDERED: CEFTRIAXONE 1GM BAG (ER ONLY) 50 ML IV ONE (10:39)
[2022-03-29] MEDS ORDERED: AZITHROMYCIN 250 MG TABLET ONE (10:40)
--- NOTE | 2022-03-29 10:55 | NUR ---
MOVE SHEET SUBMITTED.
[2022-03-29] MEDS ORDERED: AMLO1CAP2 PO (11:04)
--- NOTE | 2022-03-29 11:04 | NUR ---
INFORMED DR GARY THAT PT IS HARD STICK AND PT REQUESTS FOR MIDLINE FOR IV INSERTION INSTEAD OF "BEING POKED MULTIPLE TIMES". OK FOR MD TO HAVE MIDLINE INSERTED ON PT.
[2022-03-29] MEDS ORDERED: CHLO25TA2 PO (11:05)
[2022-03-29 11:18] LABS: BAND % (MANUAL) 7 % (0.0-5.0); NEUTROPHILS % (MANUAL) 64 (42-76)
[2022-03-29 11:19] LABS: EOSINOPHILS % (MANUAL) 1 % (0-4); LYMPHOCYTES % (MANUAL) 13 % (16-48); MONOCYTES % (MANUAL) 15 % (0-11.0)
[2022-03-29] MEDS ORDERED: CODEINE/PROMETHAZINE HCL 5 ML UDC ONE (11:56)
[2022-03-29] MEDS ORDERED: CODEINE/PROMETHAZINE HCL 5 ML UDC PO ONE (12:00)
[2022-03-29] MEDS ORDERED: ACETAMINOPHEN 325 MG TABLET PO PRN (15:00)
[2022-03-29] MEDS ORDERED: ZOLPIDEM TARTRATE 5 MG TABLET PO PRN (15:00)
[2022-03-29] MEDS ORDERED: ONDANSETRON HCL/PF 4 MG/2 ML VIAL IVP PRN (15:00)
[2022-03-29] MEDS ORDERED: MAGNESIUM HYDROXIDE 30 ML UDC PO PRN (15:00)
[2022-03-29] MEDS ORDERED: DEXTROSE 50%-WATER 50 ML DISP.SYRIN IV PRN (15:00)
[2022-03-29] MEDS ORDERED: Z GUARD REMEDY 4 OZ OINT TP PRN (15:00)
[2022-03-29] MEDS ORDERED: MAG HYDROX/AL HYDROX/SIMETH 30 ML UDC PO PRN (15:00)
[2022-03-29] MEDS ORDERED: *INSULIN REGULAR(HUMULIN R)HUM 100 UNIT/ML VIAL SQ PRN (15:00)
--- NOTE | 2022-03-29 16:04 | NUR ---
GOT BED 315-1
--- NOTE | 2022-03-29 16:17 | NUR ---
PT REPORT GIVEN TO BINTA JOSEPH.
--- NOTE | 2022-03-29 16:43 | NUR ---
PT TRANSFERRED TO [facility]- VIA [facility]. WARM HANDOFF GIVEN TO RN ASSIGNED
[2022-03-29 16:45] VITALS: BP 156/89
--- NOTE | 2022-03-29 17:12 | NUR ---
MS RN ADMITTING NOTES PT ADMITTED TO UNIT VIA [facility] AT 1630 WITH DX OF CAP. PT ABLE TO AMBULATE FROM [facility] TO HIS BED. A/O X 4. ABLE TO MAKE NEEDS KNOWN, NO C.O PAIN OR DISCOMFORTS AT THIS TIME. ORIENTED TO STAFF AND UNIT. V/S TAKEN AND RECORDED. PT ON ROOM AIRT, TOLERATING WELL WITH NO SOB NOTED. SKIN ASSESSMENT DONE: PT NOTED WITH IV ACCESS ON LFA G#22 PATENT AND FLUSHES WELL. SKIN IS INTACT. LUNGS NOTED CLEAR ON AUSCULTATION BILATERALLY, COARSE UPPER BREATH SOUNDS APPRECIATED. ABDOMEN SOFT, NON-TENDER, NON-DISTENDED WITH POSITIVE BOWEL SOUNDS ON FOUR QUADRANTS. ALL BELONGINGS RECEIVED FROM E.R. RECHECKED. SAFETY MEASURES IMPLEMENTED: BED PLACED ON LOWEST LOCKED POSITION, HOB ELEVATED, SIDE RAILS UP X2, CALL LIGHT AND TRAY TABLE WITHIN REACH OF PT. WILL CONTINUE TO MONITOR PT ACCORDINGLY.
[2022-03-29] MEDS: LEVOFLOXACIN 750 MG /D5W 150ML 750 MG in PREMIX 1 EA IV SCH (17:18)
[2022-03-29] MEDS: INSULIN REGULAR, HUMAN 100 UNIT/ML 3 ML VIAL SQ PRN (17:19)
[2022-03-29] MEDS: BLOOD SUGAR DIAGNOSTIC 1 EACH STRIP VI SCH ×2 (17:20→22:20)
--- NOTE | 2022-03-29 18:43 | NUR ---
MS RN CLOSING NOTES PT IN BED WATCHING TV AT THIS TIME. A/O X 4. ABLE TO MAKE NEEDS KNOWN. AMBULATORY. ON ROOM AIR, TOLERATING WELL WITH NO SOB NOTED. IV ACCESS ON LFA G#22 PATENT, FLUSHES WELL AND SL. ALL NEEDS AND CARE ATTENDED WELL. SAFETY MEASURES IMPLEMENTED: BED ON LOWEST LOCKED POSITION, SIDE RAILS UP X2, CALL LIGHT AND TRAY TABLE WITHIN REACH OF PT. WILL ENDORSED RYAN TO DIRECTORY COMPILER NURSE.
--- NOTE | 2022-03-29 19:40 | NUR ---
RN OPENING NOTE RECEIVED PATIENT IN BED; AWAKE, ALERT AND ORIENTED X 4. ON ROOM AIR; TOLERATING WELL. BREATHING EVEN AND NONLABORED. NOT IN ANY FORM OF RESPIRATORY DISTRESS. DENIES ANY PAIN OR DISCOMFORT AT THIS TIME. WITH IV ACCESS ON RIGHT FOREARM 22g: PATENT, INTACT AND SALINE LOCKED. ABLE TO MAKE NEEDS KNOWN. SAFETY MEASURES IMPLEMENTED: CALL LIGHT AND TABLE WITHIN REACH, SIDE RAILS UP X 2, BED IN LOWEST LOCKED POSITION. WILL CONTINUE PLAN OF CARE.
[2022-03-29 20:00] VITALS: BP 159/88
[2022-03-29] MEDS ORDERED: SULFAMETHOXAZOLE/TRIMETHOPRIM 15 ML in IV D5W 250 ML IV SCH (21:00)
--- NOTE | 2022-03-29 21:00 | NUR ---
RN NOTE INFORMED PATIENT IF A FAMILY MEMBER CAN BRING HIS MEDICATIONS BICTEGRAV/EMTRICIT AND CHLORTHALIDONE TOMORROW. PATIENT WAS ALSO ASKED WHEN DID HE RECEIVED HIS LAST DOSE OF TESTOSTERONE INJECTION; GOT INJECTION ON 03/02/22 PER PT.
[2022-03-29] MEDS: MIRTAZAPINE 15 MG TABLET PO SCH (21:45)
[2022-03-29] MEDS: LISINOPRIL (10MG) 10 MG TABLET PO SCH (21:46)
[2022-03-29] MEDS ORDERED: TRAZODONE 50 MG TABLET PO PRN (22:00)
[2022-03-30] MEDS: BLOOD SUGAR DIAGNOSTIC 1 EACH STRIP VI SCH ×4 (06:15→22:40)
--- NOTE | 2022-03-30 06:15 | NUR ---
RN NOTE WITH INFILTRATED IV ACCESS. IV REMOVED AND COVERED WITH DRY DRESSING; DRY AND INTACT; TOLERATED WELL. REFUSED TO HAVE REINSERTION AT THIS TIME.
[2022-03-30] MEDS: INSULIN REGULAR, HUMAN 100 UNIT/ML 3 ML VIAL SQ PRN ×4 (06:32→22:44)
--- NOTE | 2022-03-30 07:13 | NUR ---
RN CLOSING NOTE PATIENT IN BED; AWAKE, A/O X 4. STABLE ON ROOM AIR. RESPIRATION EVEN AND UNLABORED. IN NO APPARENT DISTRESS. NO C/O ANY PAIN OR DISCOMFORT AT THIS TIME. NO IV ACCESS. ALL NEEDS ATTENDED. SAFETY MEASURES IN PLACE: CALL LIGHT AND TABLE WITHIN REACH, SIDE RAILS UP X 2, BED IN LOWEST LOCKED POSITION. ENDORSED TO MORNING SHIFT FOR RYAN
--- NOTE | 2022-03-30 07:30 | NUR ---
ms rn received patient awake,alert,oriented x4,not in any form of distress, respirations even and unlabored,no sob noted,denies pain,all needs attended.
[2022-03-30] MEDS: PANTOPRAZOLE 40 MG TABLET.DR PO SCH (08:07)
[2022-03-30 08:53] VITALS: BP 162/102
[2022-03-30] MEDS ORDERED: predniSONE 20 MG TABLET PO SCH (09:00)
[2022-03-30] MEDS: METFORMIN 500 MG TABLET PO SCH ×2 (09:18→17:38)
[2022-03-30] MEDS: AMLODIPINE BESYLATE 10 MG TABLET PO SCH (09:18)
[2022-03-30] MEDS: LISINOPRIL (10MG) 10 MG TABLET PO SCH ×2 (09:18→21:26)
[2022-03-30] MEDS: FLUCONAZOLE (100 MG) 100 MG TABLET PO SCH (09:19)
[2022-03-30] MEDS ORDERED: CLONIDINE HCL 0.1 MG TABLET PO PRN (12:00)
[2022-03-30] MEDS: SULFAMETH/TRIMETH 800/160 MG 1 UDTAB TABLET PO SCH ×2 (14:06→17:37)
[2022-03-30 16:46] VITALS: BP 150/90
[2022-03-30] MEDS: ATORVASTATIN 10 MG TABLET PO SCH (17:38)
[2022-03-30] MEDS: LEVOFLOXACIN 750 MG /D5W 150ML 750 MG in PREMIX 1 EA IV SCH (17:38)
--- NOTE | 2022-03-30 18:41 | NUR ---
ms rn Pt in room in bed. Breathing even and unlabored. Sats 96-98%. Ate well during shift. IV to L lateral elbow intact. In stable condition. All needs tended to. Will endorse continuity of care to next shift.
--- NOTE | 2022-03-30 19:30 | NUR ---
noc rn opening received patient in bed with eyes closed, easy to arouse. no s/s of apparent distress on room air. denies pain at this time. no fluids running at this time. safety in place, call light within reach and re-oriented and encouraged with the use of call light. will continue with plan of care for patient.
[2022-03-30 20:00] VITALS: BP 109/68
[2022-03-30] MEDS: MIRTAZAPINE 15 MG TABLET PO SCH (21:26)
--- NOTE | 2022-03-31 06:29 | NUR ---
noc rn note refused blood draw at this time and said to come back later.
[2022-03-31] MEDS: INSULIN REGULAR, HUMAN 100 UNIT/ML 3 ML VIAL SQ PRN ×4 (07:04→18:30)
[2022-03-31] MEDS: BLOOD SUGAR DIAGNOSTIC 1 EACH STRIP VI SCH ×3 (07:08→15:54)
[2022-03-31] MEDS: PANTOPRAZOLE 40 MG TABLET.DR PO SCH (07:54)
--- NOTE | 2022-03-31 07:56 | NUR ---
noc rn closing report given to Ani for continuity of patient care.
[2022-03-31 08:00] VITALS: BP 102/58
--- NOTE | 2022-03-31 08:02 | NUR ---
MS RN OPENING NOTES RECEIVED PATIENT AWAKE IN BED. PATIENT IS A/O TIMES 4. NO PAIN NOTED. NO SOB NOTED. BREATHING EVEN AND UNLABORED.NO DISTRESS NOTED. IV ACCESS ON THE LEFT LATERAL ELBOW G20 INTACT AND PATENT AND SL. ABLE TO MAKE NEEDS KNOWN. ALL SAFETY MEASURES IN PLACE. BED LOCKED IN THE LOWEST POSITION. CALL LIGHT AND TABLE IN EASY REACH. SIDE RAILS UP TIMES 2. WILL CONTINUE TO MONITOR CLOSELY.
[2022-03-31] MEDS: SULFAMETH/TRIMETH 800/160 MG 1 UDTAB TABLET PO SCH (08:36)
[2022-03-31] MEDS: LISINOPRIL (10MG) 10 MG TABLET PO SCH (08:37)
[2022-03-31] MEDS: METFORMIN 500 MG TABLET PO SCH ×2 (08:37→17:34)
[2022-03-31] MEDS: FLUCONAZOLE (100 MG) 100 MG TABLET PO SCH (08:37)
[2022-03-31] MEDS: AMLODIPINE BESYLATE 10 MG TABLET PO SCH (08:38)
[2022-03-31] MEDS ORDERED: predniSONE 20 MG TABLET PO SCH (09:00)
[2022-03-31] MEDS ORDERED: LEVO500T90 PO (14:53)
[2022-03-31] MEDS ORDERED: PRED20TA PO (14:53)
[2022-03-31] MEDS ORDERED: FLUC100T8 PO (14:53)
[2022-03-31] MEDS ORDERED: Sulfameth/Trimeth 800/160 Mg PO (14:53)
[2022-03-31] MEDS ORDERED: FLUC200T PO (14:53)
[2022-03-31] MEDS ORDERED: AZIT200S PO (14:53)
[2022-03-31 14:59] LABS: BASOPHILS % (AUTO) 0.1 % (0.0-2.0); EOSINOPHILS % (AUTO) 0.1 % (0.0-6.0); HEMATOCRIT 37 % (39-51); HEMOGLOBIN 12.4 g/dL (13.5-17.5); LYMPHOCYTES # (AUTO) 0.4 K/uL (0.8-4.8); MEAN CORPUSCULAR HGB CONC 33 g/dl (31.0-36.0); MEAN CORPUSCULAR VOLUME 86 fL (80-96); MONOCYTES # (AUTO) 0.2 K/uL (0.1-1.30); MONOCYTES % (AUTO) 4.4 % (2.0-12.0); NEUTROPHILS # (AUTO) 4.2 K/uL (1.8-8.9); NEUTROPHILS % (AUTO) 87.4 % (43.0-81.0); PLATELET COUNT (AUTO) 240 K/uL (150-450); RED BLOOD CELL COUNT(AUTO) 4.34 MIL/uL (4.5-6.0); WHITE BLOOD COUNT (AUTO) 4.8 K/uL (4.3-11.0)
[2022-03-31 15:24] LABS: CREATININE 1.4 mg/dL (0.6-1.3); POTASSIUM 4.4 mmol/L (3.5-5.1)
[2022-03-31 16:00] VITALS: BP 110/62
[2022-03-31] MEDS: LEVOFLOXACIN 750 MG /D5W 150ML 750 MG in PREMIX 1 EA IV SCH (16:27)
[2022-03-31 16:47] LABS: BAND % (MANUAL) 3 % (0.0-5.0); LYMPHOCYTES % (MANUAL) 7 % (16-48); MONOCYTES % (MANUAL) 5 % (0-11.0); NEUTROPHILS % (MANUAL) 85 (42-76)
[2022-03-31] MEDS: ATORVASTATIN 10 MG TABLET PO SCH (17:34)
--- NOTE | 2022-03-31 19:37 | NUR ---
RN NOTES PATIENT IS READY TO BE DISCHARGED. PATIENT IS NOT COMPLIANT WITH DIET AND BLOOD SUGAR CONTROL. BLOOD SUGAR AT 1713 WAS 394 THEN PER MD AND SLIDING SCALE 12 UNITS GIVEN. CHECKED AT 182 WAS 431, PATIENT WAS EATING AND DRINKING SUGARY STAFF. GAVE 15 UNITS INSULIN PER SLIDING SCALE. RECHECKED AT 190 WAS 363 AND AT 193 IT WAS 319. THE BLOOD SUGAR WAS GOING DOWN. REMIND AND EDUCATE THE PATIENT FOR BLOOD SUGAR CONTROL WITH PROPER DIET AND MEDICATIONS. PATIENT VERBALIZED UNDERSTANDING.
--- NOTE | 2022-03-31 20:01 | NUR ---
MANAGER ARMY NOTES. DISCHARGE PATIENT IN STABLE CONDITION WITH STABLE VITAL SIGNS. NO PAIN NOTED. NO SOB NOTED. NO DISTRESS NOTED. ALL THE BELONGINGS ACCOUNTED AND SIGNED FOR. IV SITE REMOVED. COVERED WITH DRY DRESSING . NO BLEEDING NOTED. ALL TH EDISCHARGE INSTRUCTIONS GIVEN TO THE PATIENT. ALL THE EDUCATION REGARDING BLOOD SUGAR CHECKS AND MANAGEMENT GIVEN TO THE PATIENT. PATIENT VERBALIZED UNDERSTANDING. PATIENT STATED I AM DIABETIC FOR A LONG TIME SO I KNOW HOW TO CHECK AND HOW TO ADMINISTER THE INSULIN.MILA WALKED WITH THE PATIENT TO THE [facility] AT 1999. MD AND CHARGE NURSE AWARE OF THE DISCHARGE.
[2022-04-01] MEDS ORDERED: Medication Not On Formulary EA (Testosterone Cypionate 200 MG) INJ SCH (09:00)
[2022-04-01] MEDS ORDERED: SULFAMETH/TRIMETH 800/160 MG 1 UDTAB TABLET PO SCH (09:00)
== END 2022-03-31 19:00 | disposition home or self-care (01) | DRG 202 ==
LOC: ER 05:57 → MED 16:20
PROVIDERS: ADMIT Nurse Practitioner Acute Care; ATTEND Nurse Practitioner Acute Care
DX: J20.9 Acute bronchitis, unspecified (principal); J15.9 Unspecified bacterial pneumonia; E44.1 Mild protein-calorie malnutrition; B20 Human immunodeficiency virus [HIV] disease; E11.65 Type 2 diabetes mellitus with hyperglycemia; I10 Essential (primary) hypertension; Z20.822 Contact with and (suspected) exposure to COVID-19; K21.9 Gastro-esophageal reflux disease without esophagitis; Z98.890 Other specified postprocedural states; Z88.0 Allergy status to penicillin; Z79.4 Long term (current) use of insulin; Z79.84 Long term (current) use of oral hypoglycemic drugs; Z79.899 Other long term (current) drug therapy; E78.5 Hyperlipidemia, unspecified; D72.819 Decreased white blood cell count, unspecified; D63.8 Anemia in other chronic diseases classified elsewhere; E88.09 Other disorders of plasma-protein metabolism, not elsewhere classified; F32.A Depression, unspecified
CPT/HCPCS: 36415; 71045-TC; 80048-TC; 80053-TC; 81001; 82962-TC; 85025-TC; 87081-TC; 87086-TC; A4216; C9803; G0378; J0696; J1815; J1956; J3490; J7030; J7060

== ENCOUNTER 2022-08-13 06:32 | Emergency (ER) | payer OTHER ==
[~2022-08-13] VITALS: Ht 170.2 cm; Wt 59.0 kg
[~2022-08-13 06:32] MED LIST changes: -ACYC400T19 PO; +AZIT200S PO; -AZIT250T PO; +CHLO25TA2 PO; -CHLO473M2 MM; -CLIN300C12 PO; -DAPS25TA2 PO; -DOXY100T2 PO; -FLUC100T PO; +FLUC100T8 PO; +FLUC200T PO; -IMIQ7.5C3 TP; -INSU100V28 SQ; -Insulin Glargine,Hum SQ; +LEVO500T90 PO; -NAPR500T6 PO; -NUT.237L45 PO; -OXYC10TA49 PO; +PRED20TA PO; +Sulfameth/Trimeth 800/160 Mg PO
--- NOTE | 2022-08-13 06:50 | NUR ---
BIBS FOR C/O L HAND PAIN X 6 DAYS AND ORAL ULCER FOR A WEEK. to bed 9.
[2022-08-13] MEDS ORDERED: ONDANSETRON HCL/PF 4 MG/2 ML VIAL ONE (06:56)
[2022-08-13] MEDS ORDERED: KETOROLAC TROMETHAMINE 15 MG/ML VIAL ONE (06:56)
[2022-08-13] MEDS ORDERED: MORPHINE SULFATE INJ 4 MG/ML DISP.SYRIN ONE (06:56)
--- NOTE | 2022-08-13 06:58 | NUR ---
covid swab collected
[2022-08-13] MEDS ORDERED: IV NS 0.9% 1,000 ML IV ONE (07:00)
[2022-08-13] MEDS ORDERED: ONDANSETRON HCL/PF 4 MG/2 ML VIAL IV ONE (07:00)
[2022-08-13] MEDS ORDERED: MORPHINE SULFATE INJ 2 MG/ML DISP.SYRIN IV ONE (07:00)
[2022-08-13] MEDS ORDERED: KETOROLAC TROMETHAMINE INJ 30 MG/ML VIAL IV ONE (07:00)
--- NOTE | 2022-08-13 07:09 | NUR ---
phlebotimist at bedside
--- NOTE | 2022-08-13 07:16 | NUR ---
xray at bedside
--- NOTE | 2022-08-13 07:16 | NUR ---
URINE SAMPLE OBTAINED
--- NOTE | 2022-08-13 07:18 | NUR ---
PATIENT IS HARD STICK. POKED TWICE BUT INFILTRATED. ENDORSED TO RN NAHEED
[2022-08-13 07:39] LABS: BASOPHILS % (AUTO) 0.3 % (0.0-2.0); EOSINOPHILS % (AUTO) 0.1 % (0.0-6.0); HEMATOCRIT 32 % (39-51); HEMOGLOBIN 10.5 g/dL (13.5-17.5); LYMPHOCYTES # (AUTO) 0.3 K/uL (0.8-4.8); LYMPHOCYTES % (AUTO) 12.7 % (20.0-44.0); MEAN CORPUSCULAR HGB CONC 33 g/dl (31.0-36.0); MEAN CORPUSCULAR VOLUME 84 fL (80-96); MONOCYTES # (AUTO) 0.2 K/uL (0.1-1.30); MONOCYTES % (AUTO) 6.8 % (2.0-12.0); NEUTROPHILS # (AUTO) 1.9 K/uL (1.8-8.9); NEUTROPHILS % (AUTO) 80.1 % (43.0-81.0); PLATELET COUNT (AUTO) 157 K/uL (150-450); RED BLOOD CELL COUNT(AUTO) 3.79 MIL/uL (4.5-6.0); WHITE BLOOD COUNT (AUTO) 2.4 K/uL (4.3-11.0)
[2022-08-13 07:50] LABS: BILIRUBIN,URINE NEGATIVE (NEGATIVE); COLOR,URINE YELLOW (YELLOW); LEUKOCYTE ESTERASE ,URINE NEGATIVE (NEGATIVE); NITRITE, URINE NEGATIVE (NEGATIVE); PROTEIN,URINE 2+ mg/dl (NEGATIVE); UGLUCOSE NEGATIVE (NEGATIVE)
[2022-08-13 07:55] LABS: ALCOHOL, BLOOD < 3 mg/dL (0-0); CALCIUM, SERUM 8.6 mg/dL (8.5-10.1); CARBON DIOXIDE 25 mmol/L (21-32); CHLORIDE 104 mmol/L (98-107); GLUCOSE 183 mg/dL (74-106); POTASSIUM 3.7 mmol/L (3.5-5.1); SODIUM SERUM 138 mmol/L (136-145); UREA NITROGEN, BLOOD 26 mg/dL (7-18)
[2022-08-13 08:31] LABS: BACTERIA,URINE None seen /HPF (None Seen); SQUAMOUS EPITHELIAL CELL,UR Rare /HPF (None Seen); WBC,URINE 0-2 /HPF (0-3)
[2022-08-13 09:01] LABS: LYMPHOCYTES % (MANUAL) 12 % (16-48); MONOCYTES % (MANUAL) 6 % (0-11.0); NEUTROPHILS % (MANUAL) 82 (42-76)
[2022-08-13] MEDS ORDERED: CHLO473M2 MM (09:40)
[2022-08-13] MEDS ORDERED: HYDR-4209 PO (09:40)
[2022-08-13 10:09] VITALS: BP 135/86
--- NOTE | 2022-08-13 10:20 | NUR ---
Patient discharged to home in stable condition ambulating by self. Pharmacy changed to one of patient's choice. Written and verbal after care instructions given. Patient verbalizes understanding of instruction.
== END 2022-08-13 10:20 | disposition home or self-care (01) ==
LOC: ER 06:54
DX: S63.92XA Sprain of unspecified part of left wrist and hand, initial encounter (principal); H92.02 Otalgia, left ear; D72.819 Decreased white blood cell count, unspecified; D64.9 Anemia, unspecified; K12.1 Other forms of stomatitis; E11.65 Type 2 diabetes mellitus with hyperglycemia; F15.10 Other stimulant abuse, uncomplicated; F12.10 Cannabis abuse, uncomplicated; I10 Essential (primary) hypertension; K21.9 Gastro-esophageal reflux disease without esophagitis; Z79.899 Other long term (current) drug therapy; Z79.4 Long term (current) use of insulin; Z79.84 Long term (current) use of oral hypoglycemic drugs; Z20.822 Contact with and (suspected) exposure to COVID-19; Z59.00 Homelessness unspecified; Z88.0 Allergy status to penicillin; Y04.0XXA Assault by unarmed brawl or fight, initial encounter; Y93.89 Activity, other specified; Y92.89 Other specified places as the place of occurrence of the external cause; Y99.8 Other external cause status
CPT/HCPCS: 99285; 96374; 96361; 96375; 93005; 71045; 73130; 76536; 85025; 80048; 87040 ×2; 83605; 85007; 81001; 36415; 82962; 87426; 80320; 80307; J2270; J2405; J7030; J1885; C9803; G0480

== ENCOUNTER 2022-08-19 12:13 | Emergency (ER) | payer OTHER ==
[~2022-08-19] VITALS: Ht 165.1 cm; Wt 54.0 kg
[~2022-08-19 12:13] MED LIST changes: +CHLO473M2 MM; +HYDR-4209 PO
--- NOTE | 2022-08-19 12:13 | NUR ---
BIBS FOR MOUTH SORES CAUSING DIFFICULTY EATING. A/O X 3. TOLERATING WELL ON ROOM AIR.
[2022-08-19] MEDS ORDERED: MAG HYDROX/AL HYDROX/SIMETH 30 ML UDC PO ONE (13:00)
[2022-08-19] MEDS ORDERED: LIDOCAINE VISCOUS 2% UD 15 ML UDC MM ONE (13:00)
[2022-08-19] MEDS ORDERED: KETOROLAC TROMETHAMINE INJ 30 MG/ML VIAL IM ONE (13:00)
[2022-08-19] MEDS ORDERED: MAG HYDROX/AL HYDROX/SIMETH 30 ML UDC ONE (13:13)
[2022-08-19] MEDS ORDERED: KETOROLAC TROMETHAMINE INJ 30 MG/ML VIAL ONE (13:14)
[2022-08-19] MEDS ORDERED: LIDOCAINE VISCOUS 2% UD 15 ML UDC ONE (13:14)
[2022-08-19] MEDS ORDERED: BENZ5.1G TOP (13:32)
[2022-08-19] MEDS ORDERED: ACYC400T19 PO (13:32)
--- NOTE | 2022-08-19 14:10 | NUR ---
Patient discharged to home in stable condition. Written and verbal after care instructions given. Patient verbalizes understanding of instruction.
[2022-08-19 14:11] VITALS: BP 155/99
== END 2022-08-19 14:12 | disposition home or self-care (01) ==
LOC: ER 12:19
DX: B00.1 Herpesviral vesicular dermatitis (principal); I10 Essential (primary) hypertension; K21.9 Gastro-esophageal reflux disease without esophagitis; E11.9 Type 2 diabetes mellitus without complications; Z88.0 Allergy status to penicillin; Z79.899 Other long term (current) drug therapy
CPT/HCPCS: 99283; 96372; J1885

== ENCOUNTER 2022-11-15 08:33 | Emergency (ER) | payer OTHER ==
[~2022-11-15] VITALS: Ht 160 cm; Wt 53.5 kg
[~2022-11-15 08:33] MED LIST changes: +ACYC400T19 PO; +BENZ5.1G TOP
--- NOTE | 2022-11-15 08:45 | NUR ---
BIBA RA 839 "Abdominal Pain/diarrhea xcouple weeks was seen in
--- NOTE | 2022-11-15 09:05 | NUR ---
pt c/o of abdl pain 02/10 x1 wk with nausea and vomitin went to pmd, given omeprazole for a week. AOX4 AMBULATORY.
--- NOTE | 2022-11-15 09:22 | NUR ---
20g inserted lt hand, bld drawn, sent to lab
[2022-11-15 09:27] LABS: BASOPHILS % (AUTO) 0.5 % (0.0-2.0); EOSINOPHILS % (AUTO) 0.2 % (0.0-6.0); HEMATOCRIT 37 % (39-51); HEMOGLOBIN 12.2 g/dL (13.5-17.5); LYMPHOCYTES # (AUTO) 0.3 K/uL (0.8-4.8); LYMPHOCYTES % (AUTO) 2.6 % (20.0-44.0); MEAN CORPUSCULAR HGB CONC 33 g/dl (31.0-36.0); MEAN CORPUSCULAR VOLUME 81 fL (80-96); MONOCYTES # (AUTO) 0.2 K/uL (0.1-1.30); MONOCYTES % (AUTO) 1.5 % (2.0-12.0); NEUTROPHILS # (AUTO) 9.7 K/uL (1.8-8.9); NEUTROPHILS % (AUTO) 95.2 % (43.0-81.0); PLATELET COUNT (AUTO) 253 K/uL (150-450); WHITE BLOOD COUNT (AUTO) 10.2 K/uL (4.3-11.0)
[2022-11-15] MEDS ORDERED: FAMOTIDINE/PF INJ 20 MG/2 ML VIAL IV ONE ×2 (09:29→09:30)
[2022-11-15] MEDS ORDERED: ONDANSETRON HCL/PF 4 MG/2 ML VIAL ONE (09:29)
[2022-11-15] MEDS ORDERED: ONDANSETRON HCL/PF 4 MG/2 ML VIAL IVP ONE (09:30)
[2022-11-15] MEDS ORDERED: IV NS 0.9% 1,000 ML BAG IV ONE (09:30)
--- NOTE | 2022-11-15 09:30 | NUR ---
PT WENT TO CT SCAN VIA [facility]
[2022-11-15 09:50] LABS: ALANINE AMINOTRANSFERASE 17 U/L (12-78); ALBUMIN 3.6 g/dL (3.4-5.0); ALKALINE PHOSPHATASE 137 U/L (46-116); ASPARTATE AMINOTRANSFERASE 24 U/L (15-37); BILIRUBIN,DIRECT 0.1 mg/dL (0.0-0.2); BILIRUBIN,TOTAL 0.3 mg/dL (0.2-1.0); CARBON DIOXIDE 19 mmol/L (21-32); CHLORIDE 104 mmol/L (98-107); CREATININE 0.8 mg/dL (0.6-1.3); GLUCOSE 158 mg/dL (74-106); LIPASE 48 U/L (73-393); POTASSIUM 3.4 mmol/L (3.5-5.1); SODIUM SERUM 138 mmol/L (136-145); UREA NITROGEN, BLOOD 14 mg/dL (7-18)
[2022-11-15] MEDS ORDERED: ONDA4TAB5 PO (10:33)
--- NOTE | 2022-11-15 11:49 | NUR ---
PT OFFERED TAP CARD BUT REFUSED, WANTS A CAB OR UBER.
[2022-11-15 13:03] VITALS: BP 128/90; TEMP 98
== END 2022-11-15 13:04 | disposition home or self-care (01) ==
LOC: ER 08:53
DX: R19.7 Diarrhea, unspecified (principal); I10 Essential (primary) hypertension; K21.9 Gastro-esophageal reflux disease without esophagitis; E11.9 Type 2 diabetes mellitus without complications; Z98.890 Other specified postprocedural states; Z79.899 Other long term (current) drug therapy; Z79.4 Long term (current) use of insulin; Z88.0 Allergy status to penicillin
CPT/HCPCS: 99285; 74176; 96374; 71045; 96361; 96375; 93005; 85025; 80048; 83690; 80076; 36415; 84484; J3490; J2405; J7030